=== PATIENT | male | born 1950 | race Caucasian/White ===

== ENCOUNTER 2020-09-28 14:58 | Inpatient (IN) | payer MEDICARE, SELFPAY ==
--- NOTE | ~2020-09-28 | XR_ITS ---
EXAMINATION: XR CHEST CLINICAL INFORMATION: Status post extubation COMPARISON: Chest AP upright portable 10/08/2020 TECHNIQUE: Frontal view of the chest was obtained. FINDINGS: The lungs are well-expanded with patchy opacity seen in the lingular segment. Rest of lungs are clear. Heart size and pulmonary vascularity is normal. New endotracheal tube is 7 cm above the yenifer. A left central venous catheter is in proximal SVC. New enteric tube tip is below the diaphragm the stomach. No gross bony abnormality seen. XR/XR chest 1V IMPRESSION: New endotracheal tube and enteric tube are in satisfactory position. No change in left central venous catheter. Prominent interstitial markings in both lungs likely chronic interstitial changes and/or interstitial pneumonitis. There is patchy consolidation in the lingula.
--- NOTE | ~2020-09-28 | XR_ITS ---
EXAMINATION: XR CHEST CLINICAL INFORMATION: Chest tube placement COMPARISON: Earlier on same day and October 09, 2020 TECHNIQUE: AP portable view of the chest was obtained. FINDINGS: A right-sided chest tube is seen with pigtail about the apex. There has been significant improvement in pneumothorax with reexpansion of the right lung. There is Small amount of pleural air seen laterally. Endotracheal tube is seen approximately 5 cm above the yenifer. Left internal jugular catheter is seen with tip in the distal superior vena cava. Enteric catheter is seen traversing to the stomach. Heart normal size. There is some left base disease present which may be related to pneumonitis or atelectasis. There is pneumomediastinum present. XR/XR chest 1V IMPRESSION: Right-sided chest tube in place with near complete reexpansion of the right lung. Support catheters in place. Left base density which may be related to atelectasis or pneumonitis. Large amount of subcutaneous emphysema partially obscuring evaluation of the lung parenchyma.
--- NOTE | ~2020-09-28 | US_ITS ---
EXAMINATION: US VENOUS ULTRASOUND WITH DOPPLER LOWER EXTREMITY, BILATERAL CLINICAL INFORMATION: Follow-up DVT COMPARISON: None TECHNIQUE: Ultrasound of the deep veins is performed from the hip to the calf with compression sonography and color and pulse Doppler assessment. Spectral analysis with color-flow imaging is performed. FINDINGS: RIGHT: There is normal venous compression and respiratory variation and augmented flow. The visualized common femoral vein, superficial femoral vein, profunda femoral vein, popliteal vein, and posterior tibial veins in the calf are patent. There is occlusive thrombus seen in branch of the right peroneal vein. This appears unchanged from 10/08/2020 exam. There is no significant popliteal fossa cyst. LEFT: There is normal venous compression and respiratory variation and augmented flow. The visualized common femoral vein, superficial femoral vein, profunda femoral vein, popliteal vein, and the trifurcation region shows no evidence of deep venous thrombosis. There is no significant popliteal fossa cyst. US/US venous duplex LE BI IMPRESSION: No DVT demonstrated in the left lower extremity. Thrombus seen in a branch of the right peroneal vein in the right calf similar to most recent exam 10/08/2020.
--- NOTE | ~2020-09-28 | US_ITS ---
EXAMINATION: US VENOUS ULTRASOUND WITH DOPPLER LOWER EXTREMITY, BILATERAL CLINICAL INFORMATION: Elevated d-dimer. COMPARISON: Previous exam 09/29/2020 TECHNIQUE: Ultrasound of the deep veins is performed from the hip to the calf with compression sonography and color and pulse Doppler assessment. Spectral analysis with color-flow imaging is performed. FINDINGS: RIGHT: The visualized common femoral vein, superficial femoral vein, profunda femoral vein, popliteal vein, and the posterior tibial vein shows no evidence of deep venous thrombosis. There is thrombus seen in a branch of the right peroneal vein. There is no significant popliteal fossa cyst. LEFT: There is normal venous compression and respiratory variation and augmented flow. The visualized common femoral vein, superficial femoral vein, profunda femoral vein, popliteal vein, and the trifurcation region shows no evidence of deep venous thrombosis. There is no significant popliteal fossa cyst. US/US venous duplex LE BI IMPRESSION: Right peroneal vein calf DVT. No DVT demonstrated in the left lower extremity.
--- NOTE | ~2020-09-28 | XR_ITS ---
EXAMINATION: XR CHEST CLINICAL INFORMATION: Rule out subcutaneous emphysema. COMPARISON: Previous chest x-ray, most recent from yesterday. TECHNIQUE: AP portable view of the chest was obtained. FINDINGS: Endotracheal tube appears high with tip 11 cm above the yenifer. There is a nasogastric tube projects below the left hemidiaphragm. The tip is not seen. There is a left jugular line with tip projecting over the SVC. The cardiac and mediastinal contours are stable. There is increasing bilateral chest wall and lower neck subcutaneous emphysema. There is a small right pneumothorax. This measures maximum 4 cm at the apex. There is diffuse groundglass attenuation seen in the lungs suggestive of pneumonitis. There is no left pneumothorax. There is no pleural effusion. XR/XR chest 1V IMPRESSION: Small right pneumothorax measuring 4 cm at the right lung apex. Diffuse bilateral chest wall and lower neck subcutaneous emphysema. High position of endotracheal tube 11 cm above the yenifer. Nasogastric tube tip not seen. Diffuse ground-glass attenuation in the lungs suggestive of pneumonitis. Findings were communicated to Dr. Zhang by telephone by Dr Mccormick on 10/10/2020 at 1:30 PM.
--- NOTE | ~2020-09-28 | CT_ITS ---
EXAMINATION: CT ANGIOGRAM OF THE CHEST WITH AND WITHOUT CONTRAST (CT PULMONARY ANGIOGRAM FOR PE) CLINICAL INFORMATION: Reason for Exam covid 19 hypoxia COMPARISON: None TECHNIQUE: Prior to contrast administration, noncontrast localization images were obtained. Subsequently, multidetector volumetric imaging was performed from the thoracic inlet to below the diaphragms following the administration of 80 mL Omnipaque 350 intravenous contrast. No contrast reaction reported Sagittal, coronal, and MIP oblique sagittal reformatted images were obtained on the CT workstation, uploaded to PACS, and reviewed. This CT examination was performed using dose optimization techniques as appropriate, variously including the following: *Automated exposure control *Adjustment of mA and/or kV according to patient size (this includes techniques or standardized protocols for targeted exams where dose is matched to indication/reason for exam; i.e. extremities or head) *Use of iterative reconstruction technique Total exam dose-length product 406 mGy-cm FINDINGS: QUALITY OF STUDY/CONTRAST BOLUS: Satisfactory. PULMONARY ARTERIES: No central or segmental pulmonary emboli. Please note there is significant misregistration artifact which on multiplanar review demonstrates no definite emboli. THORACIC AORTA: No aneurysm or dissection. LUNG: Extensive groundglass opacities multifocal in a peripheral distribution consistent with history of Covid 19. PLEURA: No pleural effusion or pneumothorax. MEDIASTINUM: Normal heart size. No pericardial effusion. No hilar or mediastinal lymphadenopathy. No evidence of septal bowing or right heart strain. CHEST WALL/AXILLA: No axillary or internal mammary lymphadenopathy. OSSEOUS STRUCTURES: No acute or suspicious osseous abnormality. UPPER ABDOMEN: Incidental gallstones. This is partially imaged. Hiatus hernia noted. No reflux of contrast into the hepatic veins to suggest elevated right heart pressures. CT/CT angio chest PE protocol IMPRESSION: Allowing for misregistration artifact, there is no definite pulmonary embolism. Changes in the lung parenchyma consistent: 19. VTE: negative
--- NOTE | ~2020-09-28 | XR_ITS ---
EXAMINATION: XR CHEST CLINICAL INFORMATION: Covid positive COMPARISON: CT scan 07/25/2019 TECHNIQUE: Frontal view of the chest was obtained. FINDINGS: Equivocal peripheral faint densities on this limited portable upright chest which can be seen with atypical infection. Heart and mediastinal normal. No pleural effusion. No ectopic air. XR/XR chest 1V IMPRESSION: Equivocal peripheral infiltrates which can be seen with atypical infection.
--- NOTE | ~2020-09-28 | XR_ITS ---
EXAMINATION: XR CHEST CLINICAL INFORMATION: Follow-up pneumothorax. Covid. COMPARISON: 10/13/20 TECHNIQUE: Upright frontal portable view of the chest was obtained. FINDINGS: Multiple devices overlie the patient. The endotracheal tube tip projects approximately 6 cm above the yenifer. The left IJ approach vascular catheter tip projects near the expected junction of the brachiocephalic veins. There is an enteric tube extending into the upper abdomen tip not included. There is a drainage catheter projecting over the periphery of the right upper chest. The mediastinum katya and vasculature are partially obscured. The cardiac size is likely within normal limits. The left hilum is not well evaluated. There are diffuse reticular and groundglass opacities over both lungs greatest in the mid and lower lung zones. Large amount of soft tissue gas obscures detail. I suspect a small left apical pneumothorax. No interval increase. No convincing right-sided pneumothorax. There are osteophytes in the spine. XR/XR chest 1V IMPRESSION: Limited study. No interval change in a small left apical pneumothorax. Diffuse pulmonary opacities. Right pleural drainage catheter in place. No detectable right pneumothorax. Large amount of soft tissue gas.
--- NOTE | ~2020-09-28 | XR_ITS ---
EXAMINATION: XR CHEST CLINICAL INFORMATION: Follow-up left pneumothorax. Covid. COMPARISON: Multiple prior exams most recently 10/12/2020 TECHNIQUE: Portable AP upright view of the chest was obtained. FINDINGS: A pigtail catheter reaches the right lung apex. ET tube tip terminates at the thoracic inlet approximately 8 cm above the yenifer. Left jugular line reaches the upper SVC. Enteric tube extends below diaphragm. No visible right-sided pneumothorax. On the left side, a small pneumothorax is present, minimally increased compared to prior. Persistent pneumomediastinum with subcutaneous gas tracking into the neck and supraclavicular fossa. Extensive interstitial changes persist throughout both lungs. XR/XR chest 1V IMPRESSION: 1. ETT is in a relatively high position, slightly advanced compared to prior. 2. No visible right pneumothorax. Slight increase in small left apical pneumothorax. 3. Persistent pneumomediastinum and supraclavicular subcutaneous emphysema.
--- NOTE | ~2020-09-28 | XR_ITS ---
EXAMINATION: XR CHEST CLINICAL INFORMATION: Chest tube insertion. COMPARISON: Chest 10/15/2020 TECHNIQUE: Frontal view of the chest was obtained. FINDINGS: There is significant subcutaneous emphysema Limited evaluation of the entire chest. The right CP angle is not in the [id number] either. There is a right apical chest tube with the apex is not in the [id number]. There is bilateral patchy interstitial changes more prominent in the right lung. The heart size is normal. The endotracheal tube tip is 4.8 cm above the yenifer. A left central venous catheter is at the brachiocephalic venous junction. The enteric tube is below the diaphragm in stomach. There is mild ventral spondylosis dorsal spine. No lytic process. XR/XR chest 1V IMPRESSION: Limited exam. No major change in support lines and catheters from 10/14/2020. Extensive subcutaneous emphysema limiting evaluation of the chest. Bilateral patchy and interstitial changes throughout both lungs greater in the right lung. No large pneumothorax seen on either side.
--- NOTE | ~2020-09-28 | US_ITS ---
EXAMINATION: US VENOUS ULTRASOUND WITH DOPPLER LOWER EXTREMITY, BILATERAL CLINICAL INFORMATION: Positive d-dimer. Long distance travel. Covid positive. COMPARISON: None TECHNIQUE: Ultrasound of the deep veins is performed from the hip to the calf with compression sonography and color and pulse Doppler assessment. Spectral analysis with color-flow imaging is performed. FINDINGS: RIGHT: There is normal venous compression and respiratory variation and augmented flow. The visualized common femoral vein, superficial femoral vein, profunda femoral vein, popliteal vein, and the trifurcation region shows no evidence of deep venous thrombosis. There is no significant popliteal fossa cyst. LEFT: There is normal venous compression and respiratory variation and augmented flow. The visualized common femoral vein, superficial femoral vein, profunda femoral vein, popliteal vein, and the trifurcation region shows no evidence of deep venous thrombosis. There is no significant popliteal fossa cyst. If the patient's symptoms persist, followup ultrasound in 5 days 7 days might be of value to exclude proximal propagation from a non-visualized calf vein. US/US venous duplex LE BI IMPRESSION: No DVT demonstrated in the bilateral lower extremities.
--- NOTE | ~2020-09-28 | XR_ITS ---
EXAMINATION: XR CHEST CLINICAL INFORMATION: CT, question pneumothorax COMPARISON: 10/12/2020 TECHNIQUE: Frontal view of the chest was obtained. FINDINGS: Endotracheal tube tip lies approximately 7 cm above the yenifer. Enteric tube courses below the diaphragm. Left IJ central line tip lies in the region of the upper SVC. Right apical pigtail catheter is noted. Lung volumes are symmetric. Small left apical pneumothorax appears grossly similar to prior. No right pneumothorax is seen. Diffuse mild heterogeneous opacification is redemonstrated. The cardiomediastinal silhouette is stable. No acute osseous findings are seen. Redemonstrated soft tissue gas in the chest wall and supraclavicular regions bilaterally. XR/XR chest 1V IMPRESSION: Small left apical pneumothorax appears grossly similar to prior. Redemonstrated heterogeneous haziness throughout the lungs. Persistent soft tissue gas.
--- NOTE | ~2020-09-28 | XR_ITS ---
EXAMINATION: XR CHEST CLINICAL INFORMATION: Followup pneumothorax. COMPARISON: Chest 10/11/2020 performed earlier at 11:00 AM TECHNIQUE: Frontal view of the chest was obtained. FINDINGS: There is a small left pneumothorax suspected along the 3rd lateral interspace. No visible right pneumothorax seen. The right percutaneous chest tube remains in the lung apex laterally. Position of the endotracheal tube, nasogastric tube and left central catheter is stable. There is diffuse subcutaneous emphysema limiting evaluation of both lungs. There is, however, left basilar and likely right basilar atelectasis. The heart size and great vessels are normal caliber. No gross bony abnormality. XR/XR chest 1V IMPRESSION: Small left apicolateral pneumothorax is stable. Previously seen pneumothorax along the left lower lobe likely migrated upwards towards the lung apex. No visible right pneumothorax. There is a right apical chest catheter. Diffuse subcutaneous emphysema, support lines and catheters are similar to previous study. There is left basilar airspace opacity/atelectasis, stable.
--- NOTE | ~2020-09-28 | XR_ITS ---
EXAMINATION: XR PELVIS CLINICAL INFORMATION: Pelvic pain. COMPARISON: None TECHNIQUE: AP view of the pelvis. FINDINGS: Several mildly dilated loops of small bowel are seen overlying the right lower quadrant measuring up to 3.2 cm. Residual oral contrast is seen in one of the inferior loops. Mild gas and stool are seen within the visualized colon distally to the rectum. A Ceron catheter overlies the mid pelvis. Mild to moderate degenerative changes are seen in the visualized inferior lumbar spine. XR/XR pelvis 1-2V IMPRESSION: 1. Mildly dilated small bowel loops are nonspecific and could be secondary to ileus. Early or partial small bowel obstruction cannot be completely excluded. If the patient is symptomatic, short-term repeat abdominal radiographs are recommended as clinically indicated to assess for change.
--- NOTE | ~2020-09-28 | NM_ITS ---
EXAMINATION: NM LUNG IMAGE PERFUSION CLINICAL INFORMATION: Covidd positive. Elevated d-dimer. COMPARISON: Chest x-ray 09/28/2020 and CTA chest 09/28/2020 TECHNIQUE: Following intravenous administration of 3.8 mCi of technetium 9 and an MAA, imaging of both lungs were obtained in multiple projections. FINDINGS: There is a nonsegmental defects seen along the right posterior superior segment on RPO and posterior views. Rest of the segments of right lung and left entire lung show normal perfusion. Ventilation study was not performed. NM/NM pul perfusion IMPRESSION: Nonsegmental defect along the superior segment right lower lobe on RPO view and lateral view likely related to prominent right hilum as seen on recent CTA chest. Very low probability for PE
--- NOTE | ~2020-09-28 | XR_ITS ---
EXAMINATION: XR CHEST CLINICAL INFORMATION: Follow-up pneumothorax COMPARISON: Previous chest x-rays most recent from yesterday TECHNIQUE: Frontal view of the chest was obtained. FINDINGS: The endotracheal tube is slightly high, 9.3 cm above the yenifer. There is a right jugular line with tip projecting over the distal right jugular vein. There is a left jugular line with tip projecting over the SVC. There is a nasogastric tube projects below the left hemidiaphragm over the stomach. Tip is not seen. There is a right apical chest tube. There is pneumomediastinum. This is unchanged. Cardiac and mediastinal contours are widened unremarkable. There is bilateral airspace disease, greatest at the lung bases. This appears unchanged. There is a stable tiny right apical pneumothorax and question tiny left apical pneumothorax. There is no pleural effusion. There is bilateral chest wall and lower neck subcutaneous emphysema that appears unchanged. XR/XR chest 1V IMPRESSION: High position of endotracheal tube 9.3 cm above the yenifer. Nasogastric tube projects over stomach, tip not seen. Stable pneumomediastinum. Stable bilateral airspace disease, greatest at the lung bases. Stable tiny right apical pneumothorax and question tiny left apical pneumothorax.
--- NOTE | ~2020-09-28 | XR_ITS ---
EXAMINATION: PORTABLE CHEST 1 VIEW CLINICAL INFORMATION: dialysis cath . COMPARISON: Study earlier today. TECHNIQUE: Portable frontal view of the chest was obtained. FINDINGS: Endotracheal tube tip approximately 8 cm above the yenifer. This could be advanced further if needed. Left IJ central venous catheter tip near the expected cavoatrial junction. Right IJ catheter overlying the right neck likely in the region of the right internal jugular vein. Right apical pigtail chest tube noted. Nasogastric tube below the level the diaphragm. Persistent bibasilar airspace disease seen likely reflecting component of atelectasis. Extensive subcutaneous emphysema seen bilaterally. Small right apical pneumothorax similar to earlier today. Likely small left apical pneumothorax better seen on the study from earlier today. XR/XR chest 1V IMPRESSION: Extensive subcutaneous emphysema. Small right apical pneumothorax with right-sided pigtail catheter in place. Likely small left apical pneumothorax is well. The right IJ central venous catheter tip overlies the lower right neck in the region of the right internal jugular vein. Endotracheal tube tip approximately 8 cm above the yenifer and this could be advanced if needed.
--- NOTE | ~2020-09-28 | XR_ITS ---
EXAMINATION: XR CHEST CLINICAL INFORMATION: Right pneumothorax. Follow-up. COMPARISON: Chest radiographs 10/11/2019 21 x 2, 10/09/2020 TECHNIQUE: 2 views of the chest are obtained portably with semiupright positioning at 1117 hours. FINDINGS: There is new left pneumothorax at the lateral left base, pleural line 2.4 cm from chest wall. Again, there is pneumomediastinum and extensive overlying subcutaneous emphysema. No right pneumothorax is appreciated. There is right chest tube in position. Endotracheal tube is approximately 6 cm above yenifer. Nasogastric tube is below diaphragm. There is a left internal jugular central venous line with tip at proximal SVC. The heart is normal in size. The vascularity is normal. Some subtle groundglass opacities are stable to decreased. Results are called and discussed with Dr. Zhang at approximately 1146 hours. XR/XR chest 1V IMPRESSION: 1. New small left pneumothorax. 2. Pneumomediastinum and subcutaneous emphysema stable. No visible right pneumothorax. 3. Subtle airspace opacity stable to decreased. 4. ETT 6 cm above yenifer. NG tube below diaphragm. IJ catheter at proximal SVC.
--- NOTE | ~2020-09-28 | XR_ITS ---
EXAMINATION: XR CHEST CLINICAL INFORMATION: Line placement. COMPARISON: Chest x-ray September 28, 2020 TECHNIQUE: Frontal portable view of the chest was obtained. 9:37 PM FINDINGS: Tubes and lines: 1. Left IJ catheter tip in superior vena cava about 4 cm proximal to the caval atrial junction. There is no pneumothorax. Low lung volume. Mild central pulmonary vascular congestion and increased interstitial lung markings, interstitial edema. No overt pulmonary edema. No large pleural effusion. XR/XR chest 1V IMPRESSION: 1. Left IJ catheter tip in superior vena cava about 4 cm proximal to the caval atrial junction. There is no pneumothorax. 2. Mild central hilar vascular congestion and interstitial edema.
--- NOTE | ~2020-09-28 | CT_ITS ---
EXAMINATION: CTA CHEST PE STUDY CLINICAL INFORMATION: COVID. Worsening hypoxia COMPARISON: Prior studies including recent chest x-rays and the 09/28/2020 PE study TECHNIQUE: Prior to contrast administration, noncontrast localization images were obtained. After the administration of 70 mL of Omnipaque 350 IV contrast, contiguous thin slice helical images were obtained through the thorax. Reformatted MIP images in the coronal and sagittal planes were obtained at the acquisition workstation. This CT examination was performed using dose optimization techniques as appropriate, variously including the following: *Automated exposure control *Adjustment of mA and/or kV according to patient size (this includes techniques or standardized protocols for targeted exams where dose is matched to indication/reason for exam; i.e. extremities or head) *Use of iterative reconstruction technique Of note, the examination was performed with the patient in the prone position. DLP: 609 mGy-cm. FINDINGS: The bolus timing on this study was acceptable for visualization of the pulmonary arterial tree. There are new filling defects seen in some segmental branches of the right lower lobe and right middle lobe. There is extensive worsening airspace disease seen with dense areas of consolidation and air bronchograms. The patient was imaged in a prone position with some atelectatic changes seen along the anterior (dependent chest. The previously noted areas of groundglass opacification have progressed to more significant consolidative pattern with a background of groundglass opacification remaining. Sequela of atypical or or viral infectious etiology would be favored. No abnormal pulmonary nodules or masses are appreciated. No significant hilar or mediastinal adenopathy. I do not appreciate any significant pneumothorax on this prone study. There is however extensive subcutaneous emphysema tracking into the mediastinum. Small amount of free air and fluid seen within the visualized upper abdomen noted as well. The heart is normal in size. No evidence of ventricular septal bowing or right heart strain. Great vessels are normal. Otherwise the mediastinum is unremarkable. There is no pericardial effusion or pericardial thickening. CT/CT angio chest PE protocol IMPRESSION: Significantly worsened airspace disease now with areas of consolidation on the background of groundglass opacification. Small filling defects seen within the right middle lobe and right lower lobe subsegmental pulmonary arteries are now present. The patient is prone with areas of atelectatic change as well as consolidation. Subcutaneous air seen tracking into the mediastinum. Small amount of free air and free fluid in the abdomen of uncertain etiology. VTE: Positive This critical result was discussed with Darrell Robles RN at 10/15/2020 6:12 PM and it was ascertained that the content and urgency of the report was understood at the time of direct communication.
[2020-09-28 15:07] VITALS: BP 128/62; BP 138/63; PULSE 67; PULSE 71; RESP 14; TEMP 37.8; O2SAT 95; BMI 314.9
[2020-09-28 15:46] VITALS: BP 128/59; PULSE 72; RESP 13; TEMP 37.4; O2SAT 99
--- NOTE | 2020-09-28 16:02 | ECG_ITS ---
Test Reason : WEAKNESS Blood Pressure : / mmHG Vent. Rate : 072 BPM Atrial Rate : 072 BPM P-R Int : 170 ms QRS Dur : 090 ms QT Int : 378 ms P-R-T Axes : 073 -38 067 degrees QTc Int : 413 ms Normal sinus rhythm Left axis deviation Abnormal ECG When compared with ECG of 25-JUL-2019 20:20, No significant change was found Referred By: Tessy Mas Electronically Signed By:REBA PABON
--- NOTE | 2020-09-28 16:06 | ED.GENADULT ---
HPI - General Adult General Chief complaint: Weakness Stated complaint: WEAKNESS Time Seen by Provider: 09/28/20 15:53 Source: patient Mode of arrival: ambulatory Limitations: no limitations History of Present Illness HPI narrative: patient comes to the emergency room complaining of weakness and decreased p.o. intake. Patient states that his father recently a few days ago. patient states that he has been eating less, drinking mess, he does not feel hungry. Patient also complaining of weakness. Patient denies chest pain, no shortness of breath, no vomiting or diarrhea. Related Data Allergies Allergy/AdvReac Type Severity Reaction Status Date / Time Opioids - Morphine Analogues AdvReac Severe NAUSEA & Unverified 12/08/19 19:50 [OPIOIDS - MORPHINE VOMITING ANALOGUES] Review of Systems Review of Systems: Constitutional : No Weight loss, No Fever, No Chills, No Night Sweats, Complaining of fatigue, decreased p.o. intake ENT/Mouth : No Hearing loss, No Ear Pain, No Nasal Congestion, No Sinus Pain, No Hoarseness, No sore throat, No Rhinorrhea, No Swallowing Difficulty Eyes: No Eye Pain, No Swelling, No Redness, No Foreign Body, No Discharge, No Vision Changes Cardiovascular : No Chest Pain, No SOB, No Dyspnea on Exertion, No Orthopnea, No Edema, No Palpitations Respiratory : No Cough, No Sputum, No Wheezing, No Smoke Exposure, No Dyspnea Gastrointestinal : No Nausea, No Vomiting, No Diarrhea, No Constipation, No abdominal Pain, No Hematochezia, No Melena Genitourinary : no irregular bleeding, No Dysuria, No Urinary Frequency, No Hematuria, No Urinary Incontinence, No Urgency, No Flank Pain, No Urinary Flow Changes, No Hesitancy Musculoskeletal : No joint pain, No Myalgias, No Joint Swelling Skin : No Skin Lesions, No rash Neuro : No Weakness, No Numbness, No Paresthesias, No Loss of Consciousness, No Dizziness, No Headache Psych : No Anxiety/Panic, denies being depressed, No SI/HI/AH/VH, No Social Issues, Heme/Lymph: No Bruising, No Bleeding,No Lymphadenopathy Endocrine : No Polyuria, No Polydipsia, No Temperature Intolerance PMFSH Social History Social History Patient Tobacco Use Status: Never used Tobacco Use of substances other than those prescribed or required for medical reasons: No Advance Directives: Yes Advance Directives Information Provided: Yes Advance Directives on File: No Physical Exam Vital Signs: Vital Signs: Last Vital Signs Temp 99.0 F 09/28/20 16:47 Pulse 69 09/28/20 16:47 Resp 22 H 09/28/20 16:47 BP 131/57 L 09/28/20 16:47 Pulse Ox 99 09/28/20 16:47 Body Mass Index 314.9 Appearance: Alert. Oriented X3. No acute distress. seems weak, trouble sitting up by himself Eyes: Pupils equal, round and reactive to light. ENT: Pharynx normal. Neck: Normal inspection. Neck supple. No lymph nodes noted. No crepitus CVS: Normal heart rate and rhythm. Pulses normal. Normal S1 and S2 Respiratory: No respiratory distress. Breath sounds normal. No Wheezing. No rales Abdomen: Soft and nontender. No rigidity. No distention. good BS x4 Skin: Skin warm and dry. Normal skin color. Normal skin turgor. Extremities: No lower extremity edema. No lower extremity edema. No Lacerations. No Rash Neuro: Oriented X 3. No motor deficit. No sensory deficit. Moving all extermities. No slurred speech. Course Course Course Narrative: it is likely that patient is depressed, patient may need physical therapy and case management consult, he may also [facility] to address the possible depression. Urinalysis pending, hemoglobin and chemistry is at baseline. Patient will likely need PT, case management, and BHN. sign out given to DR. Patricia Medical Decision Making Lab Data Result diagrams: 09/28/20 16:22 09/28/20 16:22 Labs: Lab Results 09/28/20 09/28/20 09/28/20 Range/Units 16:22 16:22 16:22 WBC 4.6 L (4.8-10.8) X10*3/uL RBC 5.01 (4.60-5.80) X10*6/uL Hgb 14.6 (14.0-18.0) g/dl Hct 42.3 (42-52) % MCV 84.4 (80-98) fL MCH 29.1 (27.0-33.0) pg MCHC 34.5 (31.0-36.0) g/dl RDW 12.1 (11.0-16.0) % Plt Count 87 L (160-400) X10*3/uL MPV 9.4 (9.4-12.4) fL Immature Gran % (Auto) 0.4 (0.0-0.4) % Neut % (Auto) 83.5 H (45-73) % Lymph % (Auto) 11.4 L (20-40) % [place] % (Auto) 4.7 (2-11) % Eos % (Auto) 0.0 (0-4) % Baso % (Auto) 0.0 (0-2) % Lymph # (Auto) 0.5 L (1.2-4.9) X10*3/uL [place] # (Auto) 0.2 (0.1-1.2) X10*3/uL Eos # (Auto) 0.0 (0.0-0.4) X10*3/uL Baso # (Auto) 0.0 (0.0-0.2) X10*3/uL Abs Immat Gran (auto) 0.02 (0.00-0.03) X10*3/uL Absolute Neuts (auto) 3.9 (2.0-8.3) X10*3/uL Absolute Nucleated RBC 0.000 (0.0-0.012) X10*3/uL Nucleated RBC % (auto) 0.0 (0.0-0.2) /100WBC Smear Tech's Comments VERIFIED Sodium 134 L (135-145) mmol/L Potassium 4.3 (3.3-5.1) mmol/L Chloride 102 (96-108) mmol/L Carbon Dioxide 24 (22-29) mmol/L Anion Gap 12 (12-20) BUN 18 H (9-16) mg/dL Creatinine 1.30 (0.5-1.4) mg/dL Estim Creat Clear Calc 375.1 Estimated GFR 55 Random Glucose 113 (60-115) mg/dL Calcium 8.3 L (8.4-10.2) mg/dL Total Bilirubin 1.1 H (0.0-1.0) mg/dL Direct Bilirubin 0.6 H (0.0-0.5) mg/dL AST 45 H (5-37) U/L ALT 24 (0-40) U/L Alkaline Phosphatase 47 (39-117) U/L Troponin I High Sens 18.3 (<3.5-35.0) ng/L Total Protein 6.4 L (6.5-8.0) g/dL Albumin 3.7 (3.5-5.0) g/dL Lipase (8-78) U/L 09/28/20 Range/Units 16:22 WBC (4.8-10.8) X10*3/uL RBC (4.60-5.80) X10*6/uL Hgb (14.0-18.0) g/dl Hct (42-52) % MCV (80-98) fL MCH (27.0-33.0) pg MCHC (31.0-36.0) g/dl RDW (11.0-16.0) % Plt Count (160-400) X10*3/uL MPV (9.4-12.4) fL Immature Gran % (Auto) (0.0-0.4) % Neut % (Auto) (45-73) % Lymph % (Auto) (20-40) % [place] % (Auto) (2-11) % Eos % (Auto) (0-4) % Baso % (Auto) (0-2) % Lymph # (Auto) (1.2-4.9) X10*3/uL [place] # (Auto) (0.1-1.2) X10*3/uL Eos # (Auto) (0.0-0.4) X10*3/uL Baso # (Auto) (0.0-0.2) X10*3/uL Abs Immat Gran (auto) (0.00-0.03) X10*3/uL Absolute Neuts (auto) (2.0-8.3) X10*3/uL Absolute Nucleated RBC (0.0-0.012) X10*3/uL Nucleated RBC % (auto) (0.0-0.2) /100WBC Smear Tech's Comments Sodium (135-145) mmol/L Potassium (3.3-5.1) mmol/L Chloride (96-108) mmol/L Carbon Dioxide (22-29) mmol/L Anion Gap (12-20) BUN (9-16) mg/dL Creatinine (0.5-1.4) mg/dL Estim Creat Clear Calc Estimated GFR Random Glucose (60-115) mg/dL Calcium (8.4-10.2) mg/dL Total Bilirubin (0.0-1.0) mg/dL Direct Bilirubin (0.0-0.5) mg/dL AST (5-37) U/L ALT (0-40) U/L Alkaline Phosphatase (39-117) U/L Troponin I High Sens (<3.5-35.0) ng/L Total Protein (6.5-8.0) g/dL Albumin (3.5-5.0) g/dL Lipase 43 (8-78) U/L ECG Data Attestation: I personally reviewed and interpreted this ECG as follows: ( Normal sinus rhythm, heart rate 72, assisting the patient with the vision, noting members in sinus rhythm, heart rate 72, no ST segment depression or elevation, no T-wave inversion)
[2020-09-28 16:31] LABS: MANUAL DIFF FLAG SCAN; Mean Corpuscular Hemoglobin 29.1 pg (27.0-33.0); PLT CLUMP 1; Red Cell Distribution Width 12.1 % (11.0-16.0); SCAN SMEAR FLAG 1
[2020-09-28 16:33] LABS: Hematocrit 42.3 % (42-52); Hemoglobin 14.6 g/dl (14.0-18.0); Imm Gran Abs Auto 0.02 X10*3/uL (0.00-0.03); Imm Gran Pct Auto 0.4 % (0.0-0.4); Lymphocytes Absolute Auto 0.5 X10*3/uL (1.2-4.9); Lymphocytes Percent Auto 11.4 % (20-40); Mean Corpuscular HGB Conc 34.5 g/dl (31.0-36.0); Mean Corpuscular Volume 84.4 fL (80-98); Mean Platelet Volume 9.4 fL (9.4-12.4); Monocytes Absolute Auto 0.2 X10*3/uL (0.1-1.2); Monocytes Percent Auto 4.7 % (2-11); Neutrophils Absolute Auto 3.9 X10*3/uL (2.0-8.3); Neutrophils Percent Auto 83.5 % (45-73); Red Blood Count 5.01 X10*6/uL (4.60-5.80); White Blood Count 4.6 X10*3/uL (4.8-10.8)
[2020-09-28] MEDS: 0.9 % Sodium Chloride 1,000 ML 999 ML IVCONT ×2 (16:37→21:13)
--- NOTE | 2020-09-28 16:40 | PC.NURSE ---
pt alert and oriented x3, vss, lscta. pt reports since coming to [place] 1 wk ago for his father's he has been having loss of appetite and weakness. He denies n/v/d. +BS x4, abd soft non-tender, some abdominal distension noted. Last bm last night, loose. Pt in no apparent distress, resting quietly. Fluid hung.
[2020-09-28 16:47] VITALS: BP 131/57; PULSE 69; RESP 22; TEMP 37.2; O2SAT 99
[2020-09-28 16:55] LABS: Platelet Count 87 X10*3/uL (160-400); SLIDE REVIEW VERIFIED
[2020-09-28 17:03] LABS: Alanine Aminotransferase 24 U/L (0-40); Albumin Level 3.7 g/dL (3.5-5.0); Alkaline Phosphatase 47 U/L (39-117); Anion Gap 12 (12-20); Aspartate Amino Transferase 45 U/L (5-37); Bilirubin Direct 0.6 mg/dL (0.0-0.5); Bilirubin Total 1.1 mg/dL (0.0-1.0); Blood Urea Nitrogen 18 mg/dL (9-16); Calcium 8.3 mg/dL (8.4-10.2); Carbon Dioxide 24 mmol/L (22-29); Chloride 102 mmol/L (96-108); Creatinine Clr Calc Pharmacy 375.1; Estimated Glomerular Filt Rate 55; Glucose Random 113 mg/dL (60-115); Lipase 43 U/L (8-78); Potassium 4.3 mmol/L (3.3-5.1); Sodium 134 mmol/L (135-145); Total Protein 6.4 g/dL (6.5-8.0)
[2020-09-28 17:10] LABS: Troponin-I High Sensitivity 18.3 ng/L (<3.5-35.0)
[2020-09-28 17:43] LABS: Glucose Urine UA NEG (NEG); Leukocyte Esterase Urine NEG (NEG); Nitrite Urine NEG (NEG); Specific Gravity - Urine 1.025 (1.005-1.025); Urine Blood 2+ (NEG); Urine Ketones NEG (NEG); Urine Protein 2+ MG/DL (NEG-TRACE)
[2020-09-28 17:44] LABS: Appearance Urine HAZY; Color Urine YELLOW
[2020-09-28 18:12] LABS: Amphetamine Screen Urine Not Detected (Not Detect); Barbiturates, Urine Not Detected (Not Detect); Benzodiazepines Screen Urine Not Detected (Not Detect); Cannabinoid Screen Urine Not Detected (Not Detect); Cocaine Screen Urine Not Detected (Not Detect); Opiate Screen Urine Not Detected (Not Detect); Phencyclidine Screen Urine Not Detected (Not Detect)
[2020-09-28 18:17] LABS: Amorphous Sediment Urine TRACE /LPF; Bacteria Urine TRACE /LPF; Squamous Epithelial Cell Urine TRACE /LPF; WBC Urine 0 /HPF (0-4)
[2020-09-28 20:14] LABS: COVID-19 Test Positive (Negative)
--- NOTE | 2020-09-28 20:14 | PC.NURSE ---
SUMMARY FAXED TO [facility]
--- NOTE | 2020-09-28 20:43 | PC.NURSE ---
HEARD PT COUGHING AND VOMITING FROM OUTSIDE HIS ROOM. WENT TO CHECK ON PT, WHO HAD A CUP OF ICE CHIP. PT REPORTS HE HASN'T BEEN EATING AND WHEN HE DRINKS HE FEELS BLOATED. PT SPIT UP SOME MUCUS. PT REPORTS HE NEEDED TO MOVE HIS BOWELS. PT WAS ABLE TO TAKE A FEW STEPS TO TOILET, BED MOVED IN FRONT OF DOOR. OMN WAY BACK, PT WAS EXTREMELY WEAK AND DIZZY, HAD TO SIT ON EDGE OF BED AND CATCH HIS BREATH. PT BROUGHT TO ROOM AND COVID SWAB RESULTS LOOKED UP AND WERE POSITIVE. MD TORRES NOTIFIED.
[2020-09-28] MEDS: ondansetron HCL 4 MG/2 ML VIAL IVPUSH (21:13)
[2020-09-28 21:29] VITALS: BP 128/61; PULSE 78; RESP 20; O2SAT 89
--- NOTE | 2020-09-28 21:31 | PC.NURSE ---
pt placed on 2 lpm o2 for spo2 of 89%. spo2 improved to 92%.
[2020-09-28] MEDS: iohexoL 350 MG/ML 100 ML INFUS..BTL IV (22:21)
[2020-09-28 22:25] VITALS: PULSE 75; RESP 14; TEMP 38.3; O2SAT 95
[2020-09-28] MEDS: dexAMETHasone sod phosphate 10 MG/ML VIAL IVPUSH (22:28)
--- NOTE | 2020-09-28 23:58 | P.HPHOSP_ITS ---
History of Present Illness Date of Service: 09/28/20 Chief Complaint: Generalized weakness 69-year-old male with with a past medical history of chronic back pain, history of COVID-19 positive in May of 2019; presented to the hospital today with a chief complaint of generalized weakness. Patient reported that 10 days ago he drove from [place] as his father ; after a he mentioned he slept for 2 days; has not been feeling well, feels tired exhausted; complains of dyspnea on exertion; dry cough; denies any fevers. Denies any diarrhea. Denies any chest pain or abdominal pain. Mentions that he has not been eating well in the same period; Denies any numbness tingling or focal weakness. Review of all other systems is negative except mentioned above ER course: ER team noted that patient is extremely exhausted, noted dehydrated, mildly hypoxic to 89% on room air; placed on supplemental oxygen; CT chest showed findings consistent with COVID-19 positive, no evidence of pulmonary embolism; given Decadron. Admitted to the hospital for further management. Patient also noted to have low-grade temperature. [facility] Social History Household Members: Spouse Housing: House Do you presently have visiting nurse or other home services: No Patient Tobacco Use Status: Never used Tobacco Use of substances other than those prescribed or required for medical reasons: No Currently Displaying Signs/Symptoms of Drug Intoxication Withdrawal: No Have you been hit, kicked, punched, or otherwise hurt by someone within the past year? If so, by whom?: No Do you feel safe in your current relationship?: Yes Is there a partner from a previous relationship who is making you feel unsafe now?: No Are you made to feel afraid or neglected: No Advance Directives: Yes Advance Directives Information Provided: Yes Advance Directives on File: No Advance Directives Date on File: 09/29/20 Do you have thoughts of harming others: None Do you have a plan to hurt others: No Plan Recently lost weight without trying: Yes How much weight loss: 2-13 pounds Eating poorly because of decreased appetite: Yes Nutrition screen score: 4 Nutrition Risks: Poor intake 0-25% >4 days Poor oral hygiene: No Current occupational status: unemployed Meds Allergies Allergy/AdvReac Type Severity Reaction Status Date / Time Opioids - Morphine Analogues AdvReac Severe NAUSEA & Verified 10/07/20 19:28 [OPIOIDS - MORPHINE VOMITING ANALOGUES] Active Medications: Current Medications Generic Name Dose Route Start Last Admin Trade Name Freq PRN Reason Stop Dose Admin Acetaminophen 650 mg 09/28/20 23:52 Acetaminophen 325 Mg Tablet PO Q6H PRN Pain, Mild (Pain Scale 1-3) Albuterol Sulfate 4 puff 09/28/20 23:56 Albuterol Sulfate 90 Mcg 8 Gm Inhaler INHALE Q2H PRN Shortness of Breath/Wheezing Azithromycin 500 mg 09/28/20 23:45 Azithromycin 500 Mg Tablet PO Q24H VINH Benzonatate 100 mg 09/28/20 23:55 Benzonatate 100 Mg Capsule PO TID PRN Cough Enoxaparin Sodium 40 mg 09/28/20 23:45 Enoxaparin Sodium 40 Mg/0.4 Ml Syringe SUBCUT Q24H VINH Melatonin 6 mg 09/28/20 23:52 Melatonin 3 Mg Tablet PO BEDTIME PRN Insomnia Morphine Sulfate 1 mg 09/28/20 23:52 Morphine Sulfate 4 Mg/Ml Cartridge IVPUSH Q4H PRN Pain, SOB Senna 17.2 mg 09/28/20 23:52 Sennosides 8.6 Mg Tablet PO BEDTIME PRN Constipation Sodium Chloride 3 ml 09/29/20 00:00 0.9 % Sodium Chloride Flush 3 Ml Syringe IVFLUSH QSHIFT [facility] Home Medications Medication Instructions Recorded Confirmed Last Taken Type No Known Home Meds 09/28/20 09/28/20 Unknown History Physical Exam Vital Signs and Narrative: Vital Signs: Last Vital Signs Temp 100.9 F H 09/28/20 22:25 Pulse 75 09/28/20 22:25 Resp 14 09/28/20 22:25 BP 128/61 09/28/20 21:29 Pulse Ox 95 09/28/20 22:25 Body Mass Index 314.9 Gen: Appears be in no acute distress; on supplemental oxygen. Speaks in full sentences. No evidence of respiratory distress. HEENT: NCAT, Moist mucosa. Pulmonary: Course CVS: Normal S1-S2 Abdomen: BS+, Soft, Nontender Extremities: Warm well perfused Neuro: Alert and awake. Results Labs CBC and Chem 7: 10/10/20 05:15 07/21/21 18:10 Labs: Laboratory Results - last 24 hr 09/28/20 09/28/20 09/28/20 16:22 16:22 16:22 MCV 84.4 MCH 29.1 MCHC 34.5 RDW 12.1 Plt Count 87 L MPV 9.4 Immature Gran % (Auto) 0.4 Neut % (Auto) 83.5 H Lymph % (Auto) 11.4 L [place] % (Auto) 4.7 Eos % (Auto) 0.0 Baso % (Auto) 0.0 Lymph # (Auto) 0.5 L [place] # (Auto) 0.2 Eos # (Auto) 0.0 Baso # (Auto) 0.0 Abs Immat Gran (auto) 0.02 Absolute Neuts (auto) 3.9 Absolute Nucleated RBC 0.000 Nucleated RBC % (auto) 0.0 Smear Tech's Comments VERIFIED Anion Gap 12 Estim Creat Clear Calc 375.1 Estimated GFR 55 Random Glucose 113 Calcium 8.3 L Total Bilirubin 1.1 H Direct Bilirubin 0.6 H AST 45 H ALT 24 Alkaline Phosphatase 47 Troponin I High Sens 18.3 Total Protein 6.4 L Albumin 3.7 Lipase Urine Color Urine Appearance Urine pH Ur Specific [place] Urine Protein Urine Glucose (UA) Urine Ketones Urine Blood Urine Nitrite Ur Leukocyte Esterase Urine RBC Urine WBC Ur Squamous Epith Cells Amorphous Sediment Urine Bacteria Urine Opiates Screen Ur Barbiturates Screen Ur Phencyclidine Scrn Ur Amphetamines Screen U Benzodiazepines Scrn Urine Cocaine Screen U Marijuana (THC) Screen COVID-19 ([facility]) COVID-19 Clin Com 09/28/20 09/28/20 09/28/20 16:22 17:31 17:31 MCV MCH MCHC RDW Plt Count MPV Immature Gran % (Auto) Neut % (Auto) Lymph % (Auto) [place] % (Auto) Eos % (Auto) Baso % (Auto) Lymph # (Auto) [place] # (Auto) Eos # (Auto) Baso # (Auto) Abs Immat Gran (auto) Absolute Neuts (auto) Absolute Nucleated RBC Nucleated RBC % (auto) Smear Tech's Comments Anion Gap Estim Creat Clear Calc Estimated GFR Random Glucose Calcium Total Bilirubin Direct Bilirubin AST ALT Alkaline Phosphatase Troponin I High Sens Total Protein Albumin Lipase 43 Urine Color YELLOW Urine Appearance HAZY Urine pH 6.0 Ur Specific [place] 1.025 Urine Protein 2+ H Urine Glucose (UA) NEG Urine Ketones NEG Urine Blood 2+ H Urine Nitrite NEG Ur Leukocyte Esterase NEG Urine RBC 5-9 H Urine WBC 0 Ur Squamous Epith Cells TRACE Amorphous Sediment TRACE Urine Bacteria TRACE Urine Opiates Screen Not Detected Ur Barbiturates Screen Not Detected Ur Phencyclidine Scrn Not Detected Ur Amphetamines Screen Not Detected U Benzodiazepines Scrn Not Detected Urine Cocaine Screen Not Detected U Marijuana (THC) Screen Not Detected COVID-19 ([facility]) COVID-19 Clin Com 09/28/20 19:55 MCV MCH MCHC RDW Plt Count MPV Immature Gran % (Auto) Neut % (Auto) Lymph % (Auto) [place] % (Auto) Eos % (Auto) Baso % (Auto) Lymph # (Auto) [place] # (Auto) Eos # (Auto) Baso # (Auto) Abs Immat Gran (auto) Absolute Neuts (auto) Absolute Nucleated RBC Nucleated RBC % (auto) Smear Tech's Comments Anion Gap Estim Creat Clear Calc Estimated GFR Random Glucose Calcium Total Bilirubin Direct Bilirubin AST ALT Alkaline Phosphatase Troponin I High Sens Total Protein Albumin Lipase Urine Color Urine Appearance Urine pH Ur Specific [place] Urine Protein Urine Glucose (UA) Urine Ketones Urine Blood Urine Nitrite Ur Leukocyte Esterase Urine RBC Urine WBC Ur Squamous Epith Cells Amorphous Sediment Urine Bacteria Urine Opiates Screen Ur Barbiturates Screen Ur Phencyclidine Scrn Ur Amphetamines Screen U Benzodiazepines Scrn Urine Cocaine Screen U Marijuana (THC) Screen COVID-19 ([facility]) Positive A COVID-19 Clin Com See Note Imaging Radiologist's Impressions: Impressions Chest X-Ray 09/28/20 20:36 IMPRESSION: Equivocal peripheral infiltrates which can be seen with atypical infection. Chest CTA 09/28/20 21:33 IMPRESSION: Allowing for misregistration artifact, there is no definite pulmonary embolism. Changes in the lung parenchyma consistent: 19. VTE: negative Assessment and Plan (1) SARS-CoV-2 positive: Status: Acute 69-year-old male with a past medical history of chronic back pain, history of COVID-19 positive in May of 2019; presented to the hospital with chief complaint of generalized weakness. Noted to have COVID-19 positive and hypoxia. Hypoxia: In the setting of COVID-19 positive. Patient currently saturating 95% on 3 L of supplemental oxygen. Albuterol MDI p.r.n. COVID-19 positive: Continue Decadron 6 mg p.o. daily. Azithromycin daily. Id consult for further recommendations airborne contact isolation Generalized weakness/fatigue: Likely in setting of poor oral intake. Patient also in grief as his father 10 days ago. Supportive care. DVT prophylaxis: Lovenox Code status: Full code Quality Stroke Does the patient have a stroke diagnosis?: No VTE Prior VTE?: No VTE Risk Level:: Medical - moderate - high VTE Device Contraindication: Treatment Not Indicated VTE Drug Contraindication: N/A - Med Ordered
--- NOTE | 2020-09-28 23:58 | PC.NURSE ---
PT ABLE TO SIT UPRIGHT, LOOK MORE ALERT FOR THE PAST SEVERAL HOURS. GIVEN JOANNA CAREY, CRACKERS AND PUDDING, NO NAUSEA OR VOMITING. PT GIVEN PJ BOTTOMS TO CHANGE INTO, WOULD RATHER KEEP HIS JEANS ON.
[2020-09-29] VITALS (10 sets, daily range): BP systolic 113–123; BP diastolic 56–61; PULSE 60–80; RESP 14–20; TEMP 36–37.3; O2SAT 89–94; BMI 31.2
[2020-09-29] MEDS: Enoxaparin Sodium 40 MG/0.4 ML SYRINGE SUBCUT ×2 (01:27→20:32)
[2020-09-29] MEDS: Azithromycin 500 MG TABLET PO ×2 (01:27→20:32)
--- NOTE | 2020-09-29 01:50 | PC.NURSE ---
PT CHANGED, JEANS OFF IN PREPARATION FOR LOWER EXTREMITY ULTRASOUND. PT ABLE TO HYDRATE BY MOUTH, BUT IS REQUESTING ADDITIONAL IV FLUIDS.
--- NOTE | 2020-09-29 02:46 | PC.NURSE ---
REPORT GIVEN TO RN ON FLOOR, PT NEEDS BEDSIDE ULTRASOUND PRIOR TO TRANSPORT TO FLOOR.
[2020-09-29] MEDS: 0.9 % Sodium Chloride Flush 3 ML SYRINGE IVFLUSH ×4 (04:10→20:32)
[2020-09-29 07:03] LABS: Imm Gran Abs Auto 0.02 X10*3/uL (0.00-0.03); Imm Gran Pct Auto 0.5 % (0.0-0.4); MANUAL DIFF FLAG SCAN; Mean Platelet Volume 10.4 fL (9.4-12.4); Neutrophils Absolute Auto 3.6 X10*3/uL (2.0-8.3); PLT CLUMP 1; SCAN SMEAR FLAG 1
[2020-09-29 07:21] LABS: Anion Gap 13 (12-20); Blood Urea Nitrogen 21 mg/dL (9-16); Calcium 7.9 mg/dL (8.4-10.2); Carbon Dioxide 22 mmol/L (22-29); Chloride 103 mmol/L (96-108); Creatinine Clr Calc Pharmacy 70.3; Estimated Glomerular Filt Rate 54; Glucose Random 207 mg/dL (60-115); Potassium 4.7 mmol/L (3.3-5.1); Sodium 133 mmol/L (135-145)
[2020-09-29 07:36] LABS: Hematocrit 40.3 % (42-52); Hemoglobin 13.7 g/dl (14.0-18.0); Lymphocytes Absolute Auto 0.6 X10*3/uL (1.2-4.9); Lymphocytes Percent Auto 14.3 % (20-40); Mean Corpuscular Hemoglobin 29.3 pg (27.0-33.0); Mean Corpuscular Volume 86.1 fL (80-98); Monocytes Absolute Auto 0.2 X10*3/uL (0.1-1.2); Monocytes Percent Auto 4.1 % (2-11); Neutrophils Percent Auto 81.1 % (45-73); Red Blood Count 4.68 X10*6/uL (4.60-5.80); Red Cell Distribution Width 12.1 % (11.0-16.0); White Blood Count 4.4 X10*3/uL (4.8-10.8)
[2020-09-29 07:39] LABS: Platelet Count 88 X10*3/uL (160-400)
[2020-09-29] MEDS: dexAMETHasone 6 MG TABLET PO (08:43)
[2020-09-29] MEDS: Famotidine/PF 20 MG/2 ML VIAL IVPUSH ×2 (08:44→20:32)
--- NOTE | 2020-09-29 11:37 | MHC.CM.PN ---
IMM 09/29: COVID +: Interview conducted via phone: [place]: fully independent, drives, no prior services or equipment. At time of D/C, patient will call his brother for a ride back to his father's house where he is staying while here in [place]. CM to follow.
--- NOTE | 2020-09-29 15:26 | PM.IMPN ---
Subjective Subjective Date of Service: 09/29/20 Interval History: Follow up covid 19 no sob no hypoxia Physical Exam Vital Signs: Vital Signs: Last Vital Signs Temp 96.8 F 09/29/20 15:06 Pulse 62 09/29/20 15:06 Resp 20 09/29/20 15:06 BP 114/56 L 09/29/20 15:06 Pulse Ox 94 09/29/20 15:06 Body Mass Index 31.2 Appearing in no acute distress lung sounds normal expansion heart regular rate rhythm, clear S1, S2 positive bowel sounds, abdomen is soft, nontender neuro patient is alert x3, no focal deficits Objective Data Current Medications Generic Name Dose Route Start Last Admin Trade Name Freq PRN Reason Stop Dose Admin Acetaminophen 650 mg 09/28/20 23:52 Acetaminophen 325 Mg Tablet PO Q6H PRN Pain, Mild (Pain Scale 1-3) Albuterol Sulfate 4 puff 09/28/20 23:56 Albuterol Sulfate 90 Mcg 8 Gm Inhaler INHALE Q2H PRN Shortness of Breath/Wheezing Azithromycin 500 mg 09/28/20 23:45 09/29/20 01:27 Azithromycin 500 Mg Tablet PO 500 mg BEDTIME VINH Administration Benzonatate 100 mg 09/28/20 23:55 Benzonatate 100 Mg Capsule PO TID PRN Cough Dexamethasone 6 mg 09/29/20 09:00 09/29/20 08:43 Dexamethasone 6 Mg Tablet PO 6 mg DAILY VINH Administration Enoxaparin Sodium 40 mg 09/28/20 23:45 09/29/20 01:27 Enoxaparin Sodium 40 Mg/0.4 Ml Syringe SUBCUT 40 mg BEDTIME VINH Administration Famotidine 20 mg 09/29/20 09:00 09/29/20 08:44 Famotidine/Pf 20 Mg/2 Ml Vial IVPUSH 20 mg BID VINH Administration Melatonin 6 mg 09/28/20 23:52 Melatonin 3 Mg Tablet PO BEDTIME PRN Insomnia Morphine Sulfate 1 mg 09/28/20 23:52 Morphine Sulfate 4 Mg/Ml Cartridge IVPUSH Q4H PRN Pain, SOB Senna 17.2 mg 09/28/20 23:52 Sennosides 8.6 Mg Tablet PO BEDTIME PRN Constipation Sodium Chloride 3 ml 09/29/20 00:00 09/29/20 08:48 0.9 % Sodium Chloride Flush 3 Ml Syringe IVFLUSH 3 ml QSHIFT VINH Administration Labs CBC & Chem 7: 09/29/20 05:56 09/29/20 05:56 Labs: Laboratory Results - last 24 hr 09/28/20 09/28/20 09/28/20 16:22 16:22 16:22 MCV 84.4 MCH 29.1 MCHC 34.5 RDW 12.1 Plt Count 87 L MPV 9.4 Immature Gran % (Auto) 0.4 Neut % (Auto) 83.5 H Lymph % (Auto) 11.4 L [place] % (Auto) 4.7 Eos % (Auto) 0.0 Baso % (Auto) 0.0 Lymph # (Auto) 0.5 L [place] # (Auto) 0.2 Eos # (Auto) 0.0 Baso # (Auto) 0.0 Abs Immat Gran (auto) 0.02 Absolute Neuts (auto) 3.9 Absolute Nucleated RBC 0.000 Nucleated RBC % (auto) 0.0 Smear Tech's Comments VERIFIED Anion Gap 12 Estim Creat Clear Calc 375.1 Estimated GFR 55 Random Glucose 113 Calcium 8.3 L Total Bilirubin 1.1 H Direct Bilirubin 0.6 H AST 45 H ALT 24 Alkaline Phosphatase 47 Troponin I High Sens 18.3 Total Protein 6.4 L Albumin 3.7 Lipase Urine Color Urine Appearance Urine pH Ur Specific Rembert Urine Protein Urine Glucose (UA) Urine Ketones Urine Blood Urine Nitrite Ur Leukocyte Esterase Urine RBC Urine WBC Ur Squamous Epith Cells Amorphous Sediment Urine Bacteria Urine Opiates Screen Ur Barbiturates Screen Ur Phencyclidine Scrn Ur Amphetamines Screen U Benzodiazepines Scrn Urine Cocaine Screen U Marijuana (THC) Screen COVID-19 ([facility]) COVID-19 Clin Com 09/28/20 09/28/20 09/28/20 16:22 17:31 17:31 MCV MCH MCHC RDW Plt Count MPV Immature Gran % (Auto) Neut % (Auto) Lymph % (Auto) [place] % (Auto) Eos % (Auto) Baso % (Auto) Lymph # (Auto) [place] # (Auto) Eos # (Auto) Baso # (Auto) Abs Immat Gran (auto) Absolute Neuts (auto) Absolute Nucleated RBC Nucleated RBC % (auto) Smear Tech's Comments Anion Gap Estim Creat Clear Calc Estimated GFR Random Glucose Calcium Total Bilirubin Direct Bilirubin AST ALT Alkaline Phosphatase Troponin I High Sens Total Protein Albumin Lipase 43 Urine Color YELLOW Urine Appearance HAZY Urine pH 6.0 Ur Specific Rembert 1.025 Urine Protein 2+ H Urine Glucose (UA) NEG Urine Ketones NEG Urine Blood 2+ H Urine Nitrite NEG Ur Leukocyte Esterase NEG Urine RBC 5-9 H Urine WBC 0 Ur Squamous Epith Cells TRACE Amorphous Sediment TRACE Urine Bacteria TRACE Urine Opiates Screen Not Detected Ur Barbiturates Screen Not Detected Ur Phencyclidine Scrn Not Detected Ur Amphetamines Screen Not Detected U Benzodiazepines Scrn Not Detected Urine Cocaine Screen Not Detected U Marijuana (THC) Screen Not Detected COVID-19 ([facility]) COVID-19 Clin Com 09/28/20 09/29/20 09/29/20 19:55 05:56 05:56 MCV 86.1 MCH 29.3 MCHC 34.0 RDW 12.1 Plt Count 88 L MPV 10.4 Immature Gran % (Auto) 0.5 H Neut % (Auto) 81.1 H Lymph % (Auto) 14.3 L [place] % (Auto) 4.1 Eos % (Auto) 0.0 Baso % (Auto) 0.0 Lymph # (Auto) 0.6 L [place] # (Auto) 0.2 Eos # (Auto) 0.0 Baso # (Auto) 0.0 Abs Immat Gran (auto) 0.02 Absolute Neuts (auto) 3.6 Absolute Nucleated RBC 0.000 Nucleated RBC % (auto) 0.0 Smear Tech's Comments Not Reportable Anion Gap 13 Estim Creat Clear Calc 70.3 Estimated GFR 54 Random Glucose 207 H D Calcium 7.9 L Total Bilirubin Direct Bilirubin AST ALT Alkaline Phosphatase Troponin I High Sens Total Protein Albumin Lipase Urine Color Urine Appearance Urine pH Ur Specific Rembert Urine Protein Urine Glucose (UA) Urine Ketones Urine Blood Urine Nitrite Ur Leukocyte Esterase Urine RBC Urine WBC Ur Squamous Epith Cells Amorphous Sediment Urine Bacteria Urine Opiates Screen Ur Barbiturates Screen Ur Phencyclidine Scrn Ur Amphetamines Screen U Benzodiazepines Scrn Urine Cocaine Screen U Marijuana (THC) Screen COVID-19 ([facility]) Positive A COVID-19 Clin Com See Note Progress Note: A&P (1) Pneumonia due to COVID-19 virus: Status: Acute Assessment and Plan: 69-year-old male with a past medical history of chronic back pain, history of COVID-19 positive in May of 2019; presented to the hospital with chief complaint of generalized weakness. Noted to have COVID-19 positive and hypoxia. Acute hypoxic respiratory failure secondary to COVID-19 initial oxygen saturation 89% none 94% on 2-3 L. history of COVID and 2020 id consult Decadron, azithromycin isolation Thrombocytopenia chronic no bleeding follow cbc Elevated ddimer cta neg secondary to covid DVT prophylaxis: Lovenox Code status: Full code Attending Dr. Szymanski Quality Stroke Does the patient have a stroke diagnosis?: No VTE Prior VTE?: No VTE Risk Level:: Medical - moderate - high VTE Device Contraindication: Treatment Not Indicated VTE Drug Contraindication: N/A - Med Ordered
[2020-09-29 17:10] LABS: Adenovirus PCR Not Detected (Not Detect.); Bordetella parapertussis PCR Not Detected (Not Detect.); Bordetella pertussis PCR Not Detected (Not Detect.); Chlamydia pneumoniae PCR Not Detected (Not Detect.); Coronavirus 229E PCR Not Detected (Not Detect.); Coronavirus HKU1 PCR Not Detected (Not Detect.); Coronavirus NL63 PCR Not Detected (Not Detect.); Coronavirus OC43 PCR Not Detected (Not Detect.); Human metapneumovirus PCR Not Detected (Not Detect.); Influenza A PCR Not Detected (Not Detect.); Influenza B PCR Not Detected (Not Detect.); Mycoplasma pneumoniae PCR Not Detected (Not Detect.); Parainfluenza 1 PCR Not Detected (Not Detect.); Parainfluenza 2 PCR Not Detected (Not Detect.); Parainfluenza 3 PCR Not Detected (Not Detect.); Parainfluenza 4 PCR Not Detected (Not Detect.); RSV PCR Not Detected (Not Detect.); Rhino/Enterovirus PCR Not Detected (Not Detect.)
--- NOTE | 2020-09-29 22:53 | W.PM.IDCN ---
History of Present Illness Data of Consult Service Date: 09/29/20 Requesting physician: Jeny Wang Primary Care Provider: Unknown Physician HPI Reason for consult: hypoxia He presents for shortness of breath and fatigue He can walk a mile at a time on flat surfaces He had COVID 05/2019 and has recently traveled from [place] to [place] for fathers His COVID rapid test is positive He is hypoxic and has ground glass opacities Review of Systems Review of Systems: Yes all other systems are reviewed and are negative PMFSH Family History Family history: reviewed and not pertinent Social History Social History Household Members: Spouse Housing: House Do you presently have visiting nurse or other home services: No Patient Tobacco Use Status: Never used Tobacco Use of substances other than those prescribed or required for medical reasons: No Currently Displaying Signs/Symptoms of Drug Intoxication Withdrawal: No Have you been hit, kicked, punched, or otherwise hurt by someone within the past year? If so, by whom?: No Do you feel safe in your current relationship?: Yes Is there a partner from a previous relationship who is making you feel unsafe now?: No Are you made to feel afraid or neglected: No Advance Directives: Yes Advance Directives Information Provided: Yes Advance Directives on File: No Advance Directives Date on File: 09/29/20 Do you have thoughts of harming others: None Do you have a plan to hurt others: No Plan Recently lost weight without trying: Yes How much weight loss: 2-13 pounds Eating poorly because of decreased appetite: Yes Nutrition screen score: 4 Nutrition Risks: Poor intake 0-25% >4 days Poor oral hygiene: No Current occupational status: unemployed Meds Allergies Allergy/AdvReac Type Severity Reaction Status Date / Time Opioids - Morphine Analogues AdvReac Severe NAUSEA & Unverified 12/08/19 19:50 [OPIOIDS - MORPHINE VOMITING ANALOGUES] Active Medications: Current Medications Generic Name Dose Route Start Last Admin Trade Name Freq PRN Reason Stop Dose Admin Acetaminophen 650 mg 09/28/20 23:52 Acetaminophen 325 Mg Tablet PO Q6H PRN Pain, Mild (Pain Scale 1-3) Albuterol Sulfate 4 puff 09/28/20 23:56 Albuterol Sulfate 90 Mcg 8 Gm Inhaler INHALE Q2H PRN Shortness of Breath/Wheezing Azithromycin 500 mg 09/28/20 23:45 09/29/20 20:32 Azithromycin 500 Mg Tablet PO 500 mg BEDTIME VINH Administration Benzonatate 100 mg 09/28/20 23:55 Benzonatate 100 Mg Capsule PO TID PRN Cough Dexamethasone 6 mg 09/29/20 09:00 09/29/20 08:43 Dexamethasone 6 Mg Tablet PO 6 mg DAILY VINH Administration Enoxaparin Sodium 40 mg 09/28/20 23:45 09/29/20 20:32 Enoxaparin Sodium 40 Mg/0.4 Ml Syringe SUBCUT 40 mg BEDTIME VINH Administration Famotidine 20 mg 09/29/20 09:00 09/29/20 20:32 Famotidine/Pf 20 Mg/2 Ml Vial IVPUSH 20 mg BID VINH Administration Melatonin 6 mg 09/28/20 23:52 Melatonin 3 Mg Tablet PO BEDTIME PRN Insomnia Morphine Sulfate 1 mg 09/28/20 23:52 Morphine Sulfate 4 Mg/Ml Cartridge IVPUSH Q4H PRN Pain, SOB Senna 17.2 mg 09/28/20 23:52 Sennosides 8.6 Mg Tablet PO BEDTIME PRN Constipation Sodium Chloride 3 ml 09/29/20 00:00 09/29/20 20:32 0.9 % Sodium Chloride Flush 3 Ml Syringe IVFLUSH 3 ml QSHIFT VINH Administration Home Medications Medication Instructions Recorded Confirmed Last Taken Type No Known Home Meds 09/28/20 09/28/20 Unknown History Physical Exam Vital Signs: Vital Signs: Last Vital Signs Temp 96.9 F 09/29/20 19:20 Pulse 80 09/29/20 19:20 Resp 20 09/29/20 19:20 BP 117/59 L 09/29/20 19:20 Pulse Ox 94 09/29/20 19:20 Body Mass Index 31.2 Const: General: cooperative HENMT: Head: Yes normal to inspection Mouth: Normal oral and palatal mucosa present Eyes: General: appearance normal, both eyes and all related structures Resp: Effort & Inspection: normal respiratory effort and able to speak in complete sentences Cardio: Rate: regular rate Rhythm: regular rhythm GI: Palpation (GI): Soft to palpation and nontender Skin: General skin exam: no rashes or lesions noted Results Labs CBC & Chem 7: 09/29/20 05:56 07/10/21 05:56 Labs: Short CBC 09/29/20 Range/Units 05:56 WBC 4.4 L (4.8-10.8) X10*3/uL Hgb 13.7 L (14.0-18.0) g/dl Hct 40.3 L (42-52) % Plt Count 88 L (160-400) X10*3/uL BMP 09/29/20 05:56 Sodium 133 L Potassium 4.7 Chloride 103 Carbon Dioxide 22 BUN 21 H Creatinine 1.31 Calcium 7.9 L Assessment and Plan (1) Hypoxia: Status: Acute He is on oxygen and never has been This is possibly due to atypical pneumonia, possibly viral but less likely COVID due to prior illness Suggest Check respiratory virus panel for COVID and cycle threshold if positive For now Doxycycline total 10 d outpatient
[2020-09-30] VITALS (12 sets, daily range): BP systolic 109–135; BP diastolic 53–69; PULSE 58–72; RESP 20; TEMP 36–36.9; O2SAT 84–97
[2020-09-30] MEDS: Famotidine/PF 20 MG/2 ML VIAL IVPUSH ×2 (09:32→20:44)
[2020-09-30] MEDS: dexAMETHasone 6 MG TABLET PO (09:32)
[2020-09-30] MEDS: 0.9 % Sodium Chloride Flush 3 ML SYRINGE IVFLUSH ×3 (09:40→20:44)
[2020-09-30] MEDS: Benzonatate 100 MG CAPSULE PO (09:40)
--- NOTE | 2020-09-30 11:43 | PM.IMPN ---
Subjective Subjective Date of Service: 09/30/20 Interval History: Follow up covid 19 asymptomatic hypoxia sitting up in chair Physical Exam Vital Signs: Vital Signs: Last Vital Signs Temp 98.3 F 09/30/20 11:40 Pulse 72 09/30/20 11:40 Resp 20 09/30/20 11:40 BP 109/53 L 09/30/20 11:40 Pulse Ox 88 L 09/30/20 11:40 Body Mass Index 31.2 Appearing in no acute distress lung normal expansion heart regular rate rhythm positive bowel sounds, abdomen is soft, nontender neuro patient is alert x3, no focal deficits Objective Data Current Medications Generic Name Dose Route Start Last Admin Trade Name Freq PRN Reason Stop Dose Admin Acetaminophen 650 mg 09/28/20 23:52 Acetaminophen 325 Mg Tablet PO Q6H PRN Pain, Mild (Pain Scale 1-3) Albuterol Sulfate 4 puff 09/28/20 23:56 Albuterol Sulfate 90 Mcg 8 Gm Inhaler INHALE Q2H PRN Shortness of Breath/Wheezing Azithromycin 500 mg 09/28/20 23:45 09/29/20 20:32 Azithromycin 500 Mg Tablet PO 500 mg BEDTIME VINH Administration Benzonatate 100 mg 09/28/20 23:55 09/30/20 09:40 Benzonatate 100 Mg Capsule PO 100 mg TID PRN Administration Cough Dexamethasone 6 mg 09/29/20 09:00 09/30/20 09:32 Dexamethasone 6 Mg Tablet PO 6 mg DAILY VINH Administration Enoxaparin Sodium 40 mg 09/28/20 23:45 09/29/20 20:32 Enoxaparin Sodium 40 Mg/0.4 Ml Syringe SUBCUT 40 mg BEDTIME VINH Administration Famotidine 20 mg 09/29/20 09:00 09/30/20 09:32 Famotidine/Pf 20 Mg/2 Ml Vial IVPUSH 20 mg BID VINH Administration Melatonin 6 mg 09/28/20 23:52 Melatonin 3 Mg Tablet PO BEDTIME PRN Insomnia Morphine Sulfate 1 mg 09/28/20 23:52 Morphine Sulfate 4 Mg/Ml Cartridge IVPUSH Q4H PRN Pain, SOB Senna 17.2 mg 09/28/20 23:52 Sennosides 8.6 Mg Tablet PO BEDTIME PRN Constipation Sodium Chloride 3 ml 09/29/20 00:00 09/30/20 09:40 0.9 % Sodium Chloride Flush 3 Ml Syringe IVFLUSH 3 ml QSHIFT VINH Administration Labs CBC & Chem 7: 09/29/20 05:56 09/29/20 05:56 Progress Note: A&P (1) Hypoxia: Status: Acute (2) SARS-CoV-2 positive: Status: Acute Assessment and Plan: 69-year-old male with a past medical history of chronic back pain, history of COVID-19 positive in May of 2019; presented to the hospital with chief complaint of generalized weakness. Noted to have COVID-19 positive and hypoxia. Acute hypoxic respiratory failure secondary to COVID-19 worsening hypoxia, up to 6 Lnc initial oxygen saturation 89% none 94% on 2-3 L. history of COVID and 2020 id consult Decadron, azithromycin isolation Thrombocytopenia chronic no bleeding follow cbc Elevated ddimer cta neg secondary to covid DVT prophylaxis: Lovenox Code status: Full code Attending Dr. Szymanski Quality Stroke Does the patient have a stroke diagnosis?: No VTE Prior VTE?: No VTE Risk Level:: Medical - moderate - high VTE Device Contraindication: Treatment Not Indicated VTE Drug Contraindication: N/A - Med Ordered
[2020-09-30 12:46] LABS: SARS-CoV-2 PCR Detected (Not Detect.)
--- NOTE | 2020-09-30 12:54 | PM.EVENT ---
Event Note Date of Service: 09/30/20 Event Note: put in flu/RSV/COVID stat need cycle threshold not available on [employer] RSV panel, may give steroids
[2020-09-30 13:28] LABS: ABG Base Excess -4.7 mmol/L; ABG HCO3 18 mmol/L (22-26); ABG pCO2 27 mmHg (32-45); ABG pCO2 TC 26 mmHg (32-45); ABG pH 7.42 (7.35-7.45); ABG pH TC 7.43 (7.35-7.45); ABG pO2 86 mmHg (83-108); ABG pO2 TC 85 (83-108)
[2020-09-30 13:39] LABS: Influenza A PCR NEGATIVE (Negative); Influenza B PCR NEGATIVE (Negative); Resp Syncy Virus RNA Qual PCR NEGATIVE (Negative); SARS COV2 PCR INHOUSE POSITIVE (Negative)
[2020-09-30 14:47] LABS: ABG Refer to POC result
[2020-09-30] MEDS: Remdesivir 200 MG in 0.9 % Sodium Chloride 210 ML 105 MG IV (16:07)
--- NOTE | 2020-09-30 17:17 | PC.NURSE ---
Pt desat from 90s to low mid 80s with any exertion. From moving OOB to chair to simply eating or talking on phone pt can desat very quickly and easily. Reminding to move slowly while breathing through his nose in order to keep o2 at acceptable range. Pt states no SOB or discomfort at this time. Remains on continuous o2 currently 92% on 7L castillo cannula.
[2020-09-30] MEDS: Enoxaparin Sodium 40 MG/0.4 ML SYRINGE SUBCUT (20:44)
[2020-09-30] MEDS: Azithromycin 500 MG TABLET PO (20:44)
[2020-10-01] VITALS (14 sets, daily range): BP systolic 104–142; BP diastolic 51–63; PULSE 61–67; RESP 20–24; TEMP 36–37.1; O2SAT 75–99
--- NOTE | 2020-10-01 00:51 | PC.NURSE ---
Addendum entered by Natasha Ward RN 10/01/20 06:21: Patient up to void around 0545, O2 sats dropped to high 70s to low 80's. Pt recovered slowly, sats back up to 88-90% after approx 25 minutes. Venti mask still on at 14L, 55%. Respiratory updated. Addendum entered by Natasha Ward RN 10/01/20 01:38: Patient continued to desat just lying in bed. Titrated the Stevenson cannual up a little at a time but sats continued to drop to the low to mid 80's. Changed to a venti mask at 0135. The venti mask is at 14L, 55%. Pt sats are between 87-90%. Hospitalist and respiratory both aware of the change. Original Note: Patient on 7L Stevenson cannula. Sats sustaining between 83-87%. O2 increased to 9L, sats up to 90.
[2020-10-01 06:51] LABS: Hemoglobin 13.7 g/dl (14.0-18.0); Mean Corpuscular HGB Conc 34.3 g/dl (31.0-36.0); Mean Corpuscular Volume 84.7 fL (80-98); Mean Platelet Volume 10.4 fL (9.4-12.4); Platelet Count 130 X10*3/uL (160-400); Red Blood Count 4.72 X10*6/uL (4.60-5.80); Red Cell Distribution Width 12.2 % (11.0-16.0); White Blood Count 7.9 X10*3/uL (4.8-10.8)
[2020-10-01 07:15] LABS: Lactate Dehydrogenase 570 U/L (118-273)
[2020-10-01 07:21] LABS: Anion Gap 13 (12-20); Blood Urea Nitrogen 25 mg/dL (9-16); Calcium 8.1 mg/dL (8.4-10.2); Carbon Dioxide 21 mmol/L (22-29); Chloride 108 mmol/L (96-108); Estimated Glomerular Filt Rate > 60; Glucose Random 129 mg/dL (60-115); Potassium 4.3 mmol/L (3.3-5.1); Sodium 138 mmol/L (135-145)
[2020-10-01] MEDS: dexAMETHasone 6 MG TABLET PO (07:37)
[2020-10-01] MEDS: Famotidine/PF 20 MG/2 ML VIAL IVPUSH ×2 (07:37→19:43)
[2020-10-01] MEDS: 0.9 % Sodium Chloride Flush 3 ML SYRINGE IVFLUSH ×3 (07:37→19:44)
[2020-10-01 07:39] LABS: Procalcitonin 0.08 ng/mL
[2020-10-01] MEDS: Benzonatate 100 MG CAPSULE PO (07:45)
[2020-10-01 08:34] LABS: Ferritin 2514 ng/mL (20-250)
[2020-10-01 09:04] LABS: C Reactive Protein 6.59 mg/dL (< or = 0.50)
--- NOTE | 2020-10-01 11:27 | PM.IMPN ---
Subjective Subjective Date of Service: 10/01/20 Interval History: Follow up covid 19 increasing hypoxia. asymptomatic no pain or discomfort prefers to lay on his side rather than sit in chair Physical Exam Vital Signs: Vital Signs: Last Vital Signs Temp 98.2 F 10/01/20 07:49 Pulse 65 10/01/20 07:49 Resp 24 H 10/01/20 07:49 BP 123/58 L 10/01/20 07:49 Pulse Ox 93 10/01/20 07:49 Body Mass Index 31.2 Appearing in no acute distress lung normal expansion heart regular rate rhythm, clear S1, S2 positive bowel sounds, abdomen is soft, nontender neuro patient is alert x3, no focal deficits Objective Data Current Medications Generic Name Dose Route Start Last Admin Trade Name Freq PRN Reason Stop Dose Admin Acetaminophen 650 mg 09/28/20 23:52 Acetaminophen 325 Mg Tablet PO Q6H PRN Pain, Mild (Pain Scale 1-3) Albuterol Sulfate 4 puff 09/28/20 23:56 Albuterol Sulfate 90 Mcg 8 Gm Inhaler INHALE Q2H PRN Shortness of Breath/Wheezing Azithromycin 500 mg 09/28/20 23:45 09/30/20 20:44 Azithromycin 500 Mg Tablet PO 500 mg BEDTIME VIHN Administration Benzonatate 100 mg 09/28/20 23:55 10/01/20 07:45 Benzonatate 100 Mg Capsule PO 100 mg TID PRN Administration Cough Dexamethasone 6 mg 09/29/20 09:00 10/01/20 07:37 Dexamethasone 6 Mg Tablet PO 6 mg DAILY VINH Administration Enoxaparin Sodium 40 mg 09/28/20 23:45 09/30/20 20:44 Enoxaparin Sodium 40 Mg/0.4 Ml Syringe SUBCUT 40 mg BEDTIME VINH Administration Famotidine 20 mg 09/29/20 09:00 10/01/20 07:37 Famotidine/Pf 20 Mg/2 Ml Vial IVPUSH 20 mg BID VINH Administration Remdesivir 100 mg/ Sodium 230 mls @ 115 mls/hr 10/01/20 16:00 Chloride IV 10/04/20 17:59 Q24H VINH Melatonin 6 mg 09/28/20 23:52 Melatonin 3 Mg Tablet PO BEDTIME PRN Insomnia Morphine Sulfate 1 mg 09/28/20 23:52 Morphine Sulfate 4 Mg/Ml Cartridge IVPUSH Q4H PRN Pain, SOB Senna 17.2 mg 09/28/20 23:52 Sennosides 8.6 Mg Tablet PO BEDTIME PRN Constipation Sodium Chloride 3 ml 09/29/20 00:00 10/01/20 07:37 0.9 % Sodium Chloride Flush 3 Ml Syringe IVFLUSH 3 ml QSHIFT VINH Administration Labs CBC & Chem 7: 10/01/20 05:44 10/01/20 05:44 Labs: Laboratory Results - last 24 hr 09/29/20 09/29/20 09/30/20 16:55 16:55 13:20 MCV MCH MCHC RDW Plt Count MPV Absolute Nucleated RBC Nucleated RBC % (auto) O2 Saturation 96.0 ABG pH at Pt Temp 7.42 ABG pH (Temp Correct) 7.43 ABG pCO2 at Pt Temp 27 L ABG pCO2 (Temp Corrct 26 L ABG pO2 at Pt Temp 86 ABG pO2 (Temp Correct 85 ABG HCO3 18 L ABG Base Excess (Actual) -4.7 Anion Gap Estim Creat Clear Calc Estimated GFR Random Glucose Calcium Ferritin Lactate Dehydrogenase C-Reactive Protein Procalcitonin Respiratory Panel Rivera See Note Adenovirus (Rapid PCR) Not Detected B.pert (TEM-PCR) Not Detected B.parapertussis DNA PCR Not Detected C. pneumoniae DNA (PCR) Not Detected Coronavirus (PCR) POSITIVE A Coronavirus OC43 (PCR) Not Detected Coronavirus HKU1 (PCR) Not Detected Coronavirus 229E (PCR) Not Detected Coronavirus NL63 (PCR) Not Detected Human Metapneumovir PCR Not Detected Influenza A (RT-PCR) Not Detected Influenza Type A (PCR) NEGATIVE Influenza B (RT-PCR) Not Detected Influenza Type B (PCR) NEGATIVE M. pneumoniae (PCR) Not Detected Parainfluenza 1 (PCR) Not Detected Parainfluenza 2 (PCR) Not Detected Parainfluenza 3 (PCR) Not Detected Parainfluenza 4 (PCR) Not Detected RSV (PCR) Not Detected RSV RNA Qual (PCR) NEGATIVE Entero/Rhino (PCR) Not Detected SARS-CoV-2 RNA (RT-PCR) Detected A 10/01/20 10/01/20 10/01/20 05:44 05:44 05:44 MCV 84.7 MCH 29.0 MCHC 34.3 RDW 12.2 Plt Count 130 L D MPV 10.4 Absolute Nucleated RBC 0.000 Nucleated RBC % (auto) 0.0 O2 Saturation ABG pH at Pt Temp ABG pH (Temp Correct) ABG pCO2 at Pt Temp ABG pCO2 (Temp Corrct ABG pO2 at Pt Temp ABG pO2 (Temp Correct ABG HCO3 ABG Base Excess (Actual) Anion Gap 13 Estim Creat Clear Calc 94.0 Estimated GFR > 60 Random Glucose 129 H D Calcium 8.1 L Ferritin 2514 H Lactate Dehydrogenase 570 H C-Reactive Protein 6.59 H Procalcitonin Respiratory Panel Rivera Adenovirus (Rapid PCR) B.pert (TEM-PCR) B.parapertussis DNA PCR C. pneumoniae DNA (PCR) Coronavirus (PCR) Coronavirus OC43 (PCR) Coronavirus HKU1 (PCR) Coronavirus 229E (PCR) Coronavirus NL63 (PCR) Human Metapneumovir PCR Influenza A (RT-PCR) Influenza Type A (PCR) Influenza B (RT-PCR) Influenza Type B (PCR) M. pneumoniae (PCR) Parainfluenza 1 (PCR) Parainfluenza 2 (PCR) Parainfluenza 3 (PCR) Parainfluenza 4 (PCR) RSV (PCR) RSV RNA Qual (PCR) Entero/Rhino (PCR) SARS-CoV-2 RNA (RT-PCR) 10/01/20 05:44 MCV MCH MCHC RDW Plt Count MPV Absolute Nucleated RBC Nucleated RBC % (auto) O2 Saturation ABG pH at Pt Temp ABG pH (Temp Correct) ABG pCO2 at Pt Temp ABG pCO2 (Temp Corrct ABG pO2 at Pt Temp ABG pO2 (Temp Correct ABG HCO3 ABG Base Excess (Actual) Anion Gap Estim Creat Clear Calc Estimated GFR Random Glucose Calcium Ferritin Lactate Dehydrogenase C-Reactive Protein Procalcitonin 0.08 Respiratory Panel Rivera Adenovirus (Rapid PCR) B.pert (TEM-PCR) B.parapertussis DNA PCR C. pneumoniae DNA (PCR) Coronavirus (PCR) Coronavirus OC43 (PCR) Coronavirus HKU1 (PCR) Coronavirus 229E (PCR) Coronavirus NL63 (PCR) Human Metapneumovir PCR Influenza A (RT-PCR) Influenza Type A (PCR) Influenza B (RT-PCR) Influenza Type B (PCR) M. pneumoniae (PCR) Parainfluenza 1 (PCR) Parainfluenza 2 (PCR) Parainfluenza 3 (PCR) Parainfluenza 4 (PCR) RSV (PCR) RSV RNA Qual (PCR) Entero/Rhino (PCR) SARS-CoV-2 RNA (RT-PCR) Progress Note: A&P (1) Pneumonia due to COVID-19 virus: Status: Acute Assessment and Plan: 69-year-old male with a past medical history of chronic back pain, history of COVID-19 positive in May of 2019; presented to the hospital with chief complaint of generalized weakness. Noted to have COVID-19 positive and hypoxia. Of note, patient mentioned that he was covid positive in 05/2019 however he then stated that the date was wrong and he was sick from what he thought was covid. Apparently he was sick in feb 2020 but was never formally diagnosed with covid 19. Acute hypoxic respiratory failure secondary to COVID-19 worsening hypoxia, up to 6 Lnc, now on non rebreather, asymptomatic blood gas within normal limits history of COVID and 2020 ID started remdesivir Decadron, azithromycin isolation, Monitor resp status closely Thrombocytopenia chronic no bleeding follow cbc Elevated ddimer cta neg secondary to covid DVT prophylaxis: Lovenox Code status: Full code Attending Dr. Ortiz Quality Stroke Does the patient have a stroke diagnosis?: No VTE Prior VTE?: No VTE Risk Level:: Medical - moderate - high VTE Device Contraindication: Treatment Not Indicated VTE Drug Contraindication: N/A - Med Ordered
--- NOTE | 2020-10-01 15:36 | PM.IDPN ---
Subjective Subjective Date of Service: 10/01/20 Critical Care Time (minutes): 15 Comment: He notes that his breathing is slightly better than this morning Objective Data Labs CBC & Chem 7: 10/01/20 05:44 10/01/20 05:44 Labs: Laboratory Results - last 24 hr 10/01/20 10/01/20 10/01/20 05:44 05:44 05:44 WBC 7.9 RBC 4.72 Hgb 13.7 L Hct 40.0 L MCV 84.7 MCH 29.0 MCHC 34.3 RDW 12.2 Plt Count 130 L D MPV 10.4 Absolute Nucleated RBC 0.000 Nucleated RBC % (auto) 0.0 Sodium 138 Potassium 4.3 Chloride 108 Carbon Dioxide 21 L Anion Gap 13 BUN 25 H Creatinine 0.98 Estim Creat Clear Calc 94.0 Estimated GFR > 60 Random Glucose 129 H D Calcium 8.1 L Ferritin 2514 H Lactate Dehydrogenase 570 H C-Reactive Protein 6.59 H Procalcitonin 10/01/20 05:44 WBC RBC Hgb Hct MCV MCH MCHC RDW Plt Count MPV Absolute Nucleated RBC Nucleated RBC % (auto) Sodium Potassium Chloride Carbon Dioxide Anion Gap BUN Creatinine Estim Creat Clear Calc Estimated GFR Random Glucose Calcium Ferritin Lactate Dehydrogenase C-Reactive Protein Procalcitonin 0.08 Physical Exam Vital Signs: Vital Signs: Last Vital Signs Temp 96.8 F 10/01/20 15:18 Pulse 65 10/01/20 15:18 Resp 22 H 10/01/20 15:18 BP 129/62 10/01/20 15:18 Pulse Ox 93 10/01/20 15:18 Body Mass Index 31.2 Const: General: cooperative HENMT: Head: Yes normal to inspection Mouth: Normal oral and palatal mucosa present Resp: Effort & Inspection: abnormal respiratory pattern Cardio: Rate: regular rate Rhythm: regular rhythm GI: Palpation (GI): Soft to palpation and nontender Skin: General skin exam: no rashes or lesions noted Extrem: General: Yes normal to inspection Assessment and Plan Assessment and plan (1) Pneumonia due to COVID-19 virus: Problem details: He now says he never had COVID in May He has it now though as cycle threshold is only 17 Status: Acute Assessment and Plan: I would continue steroids I added Remdesivir per protocol I would stop azithomycin as likely this is all COVID (2) Hypoxia: Status: Acute Time Spent With Patient Time: Total time spent is greater than 50% in coordination of care (as documented) at patient's floor/unit and/or counseling patient: Time with patient: 15 - 24 minutes
[2020-10-01] MEDS: Remdesivir 100 MG in 0.9 % Sodium Chloride 230 ML 115 MG IV (17:02)
[2020-10-01] MEDS: Enoxaparin Sodium 40 MG/0.4 ML SYRINGE SUBCUT (19:43)
[2020-10-02] VITALS (8 sets, daily range): BP systolic 116–151; BP diastolic 58–64; PULSE 54–67; RESP 18–24; TEMP 36–37.4; O2SAT 89–95
[2020-10-02] MEDS: Acetaminophen 325 MG TABLET 650 MG PO (00:17)
[2020-10-02 06:47] LABS: Hematocrit 39.9 % (42-52); Hemoglobin 13.6 g/dl (14.0-18.0); Mean Corpuscular HGB Conc 34.1 g/dl (31.0-36.0); Mean Corpuscular Hemoglobin 28.8 pg (27.0-33.0); Mean Corpuscular Volume 84.4 fL (80-98); Mean Platelet Volume 9.4 fL (9.4-12.4); Platelet Count 144 X10*3/uL (160-400); Red Blood Count 4.73 X10*6/uL (4.60-5.80); White Blood Count 7.7 X10*3/uL (4.8-10.8)
[2020-10-02 07:11] LABS: Lactate Dehydrogenase 764 U/L (118-273)
[2020-10-02 07:25] LABS: Anion Gap 12 (12-20); Blood Urea Nitrogen 24 mg/dL (9-16); Calcium 8.6 mg/dL (8.4-10.2); Carbon Dioxide 26 mmol/L (22-29); Chloride 107 mmol/L (96-108); Creatinine Clr Calc Pharmacy 78.7; Estimated Glomerular Filt Rate > 60; Glucose Random 160 mg/dL (60-115); Potassium 4.5 mmol/L (3.3-5.1); Sodium 140 mmol/L (135-145)
[2020-10-02 09:05] LABS: Ferritin 2778 ng/mL (20-250)
[2020-10-02] MEDS: dexAMETHasone 6 MG TABLET PO (09:13)
[2020-10-02] MEDS: Benzonatate 100 MG CAPSULE PO (09:13)
[2020-10-02] MEDS: 0.9 % Sodium Chloride Flush 3 ML SYRINGE IVFLUSH ×2 (09:13→16:05)
[2020-10-02] MEDS: Famotidine/PF 20 MG/2 ML VIAL IVPUSH ×2 (09:13→20:20)
--- NOTE | 2020-10-02 13:46 | PM.IMPN ---
Subjective Subjective Date of Service: 10/02/20 Interval History: Follow up Covid 19 increased oxygen some sob today Physical Exam Vital Signs: Vital Signs: Last Vital Signs Temp 98.3 F 10/02/20 11:23 Pulse 67 10/02/20 11:23 Resp 24 H 10/02/20 11:23 BP 126/58 L 10/02/20 11:23 Pulse Ox 92 10/02/20 11:23 Body Mass Index 31.2 Appearing in no acute distress lung sounds normal expansion heart regular rate rhythm abdomen nontender neuro patient is alert x3, no focal deficits Objective Data Current Medications Generic Name Dose Route Start Last Admin Trade Name Freq PRN Reason Stop Dose Admin Acetaminophen 650 mg 09/28/20 23:52 10/02/20 00:17 Acetaminophen 325 Mg Tablet PO 650 mg Q6H PRN Administration Pain, Mild (Pain Scale 1-3) Albuterol Sulfate 4 puff 09/28/20 23:56 Albuterol Sulfate 90 Mcg 8 Gm Inhaler INHALE Q2H PRN Shortness of Breath/Wheezing Benzonatate 100 mg 09/28/20 23:55 10/02/20 09:13 Benzonatate 100 Mg Capsule PO 100 mg TID PRN Administration Cough Dexamethasone 6 mg 09/29/20 09:00 10/02/20 09:13 Dexamethasone 6 Mg Tablet PO 6 mg DAILY VINH Administration Enoxaparin Sodium 40 mg 09/28/20 23:45 10/01/20 19:43 Enoxaparin Sodium 40 Mg/0.4 Ml Syringe SUBCUT 40 mg BEDTIME VINH Administration Famotidine 20 mg 09/29/20 09:00 10/02/20 09:13 Famotidine/Pf 20 Mg/2 Ml Vial IVPUSH 20 mg BID VINH Administration Remdesivir 100 mg/ Sodium 230 mls @ 115 mls/hr 10/01/20 16:00 10/01/20 19:48 Chloride IV 10/04/20 17:59 Infused Q24H VINH Infusion Melatonin 6 mg 09/28/20 23:52 Melatonin 3 Mg Tablet PO BEDTIME PRN Insomnia Morphine Sulfate 1 mg 09/28/20 23:52 Morphine Sulfate 4 Mg/Ml Cartridge IVPUSH Q4H PRN Pain, SOB Senna 17.2 mg 09/28/20 23:52 Sennosides 8.6 Mg Tablet PO BEDTIME PRN Constipation Sodium Chloride 3 ml 09/29/20 00:00 10/02/20 09:13 0.9 % Sodium Chloride Flush 3 Ml Syringe IVFLUSH 3 ml QSHIFT VINH Administration Labs CBC & Chem 7: 10/02/20 06:27 10/02/20 06:27 Labs: Laboratory Results - last 24 hr 10/02/20 10/02/20 10/02/20 06:27 06:27 06:27 MCV 84.4 MCH 28.8 MCHC 34.1 RDW 12.0 Plt Count 144 L MPV 9.4 Absolute Nucleated RBC 0.000 Nucleated RBC % (auto) 0.0 Anion Gap 12 Estim Creat Clear Calc 78.7 Estimated GFR > 60 Random Glucose 160 H Calcium 8.6 D Ferritin 2778 H Lactate Dehydrogenase 764 H C-Reactive Protein 7.50 H Microbiology Microbiology Results: Microbiology 10/01/20 09:09 Blood - Venous Blood Culture - Preliminary No growth after 24 hours. 10/01/20 09:02 Blood - Venous Blood Culture - Preliminary No growth after 24 hours. Progress Note: A&P (1) Pneumonia due to COVID-19 virus: Status: Acute Assessment and Plan: 69-year-old male with a past medical history of chronic back pain, history of COVID-19 positive in May of 2019; presented to the hospital with chief complaint of generalized weakness. Noted to have COVID-19 positive and hypoxia. Of note, patient mentioned that he was covid positive in 05/2019 however he then stated that the date was wrong and he was sick from what he thought was covid. Apparently he was sick in feb 2020 but was never formally diagnosed with covid 19. Acute hypoxic respiratory failure secondary to COVID-19. ferritin (2778), LDH (764) and CRP(7.50)worse. worsening hypoxia, now on Aerosol mask 80% 10 liters. 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 Continue Decadron, azithromycin isolation, Monitor resp status closely Thrombocytopenia chronic no bleeding follow cbc Elevated ddimer cta neg secondary to covid DVT prophylaxis: Lovenox Code status: Full code Attending Dr. Ortiz Quality Stroke Does the patient have a stroke diagnosis?: No VTE Prior VTE?: No VTE Risk Level:: Medical - moderate - high VTE Device Contraindication: Treatment Not Indicated VTE Drug Contraindication: N/A - Med Ordered
[2020-10-02] MEDS: Remdesivir 100 MG in 0.9 % Sodium Chloride 230 ML 115 MG IV (16:05)
[2020-10-02] MEDS: Enoxaparin Sodium 40 MG/0.4 ML SYRINGE SUBCUT (20:20)
[2020-10-03] MEDS: 0.9 % Sodium Chloride Flush 3 ML SYRINGE IVFLUSH ×3 (00:31→15:54)
[2020-10-03 03:46] VITALS: BP 133/63; PULSE 59; RESP 19; TEMP 37.1; O2SAT 94
[2020-10-03 06:32] LABS: PLT CLUMP 1
[2020-10-03 06:34] LABS: Hemoglobin 14.5 g/dl (14.0-18.0); Mean Corpuscular HGB Conc 34.5 g/dl (31.0-36.0); Mean Corpuscular Hemoglobin 29.2 pg (27.0-33.0); Mean Corpuscular Volume 84.7 fL (80-98); Mean Platelet Volume 9.1 fL (9.4-12.4); Platelet Count 157 X10*3/uL (160-400); Red Blood Count 4.96 X10*6/uL (4.60-5.80); Red Cell Distribution Width 12.1 % (11.0-16.0); White Blood Count 8.4 X10*3/uL (4.8-10.8)
[2020-10-03 07:04] LABS: Lactate Dehydrogenase 854 U/L (118-273)
[2020-10-03 07:08] LABS: Anion Gap 10 (12-20); Blood Urea Nitrogen 23 mg/dL (9-16); Calcium 8.4 mg/dL (8.4-10.2); Carbon Dioxide 28 mmol/L (22-29); Chloride 105 mmol/L (96-108); Creatinine Clr Calc Pharmacy 88.6; Estimated Glomerular Filt Rate > 60; Glucose Random 125 mg/dL (60-115); Potassium 4.4 mmol/L (3.3-5.1); Sodium 139 mmol/L (135-145)
[2020-10-03 07:49] VITALS: BP 125/59; PULSE 74; RESP 22; TEMP 37.7; O2SAT 85
[2020-10-03] MEDS: dexAMETHasone 6 MG TABLET PO (07:51)
[2020-10-03] MEDS: Famotidine/PF 20 MG/2 ML VIAL IVPUSH ×2 (07:52→20:45)
[2020-10-03 08:01] LABS: Ferritin 2879 ng/mL (20-250)
[2020-10-03] MEDS: ondansetron HCL 4 MG/2 ML VIAL IVPUSH (08:31)
[2020-10-03 09:38] LABS: D Dimer 14155 NG/ML
[2020-10-03 12:00] VITALS: BP 109/57; PULSE 80; RESP 23; TEMP 36.6; O2SAT 90
--- NOTE | 2020-10-03 12:43 | MHC.CM.PN ---
Male 69 DX Covid. Patient continues to require increased oxygen R/T SPo2. DP To be determined by the Patients recovery. The original DP was to Pts fathers home. No services and family transport. PT EVAL once Pt able to tolerate. CM will follow to assess for a change in discharge needs.
--- NOTE | 2020-10-03 14:09 | HO.PM.IMPN ---
Subjective Subjective Date of Service: 10/03/20 Interval History: seen and examined this AM reports feeling slight improvement, but still extreme hypoxia with minimal improvement reports he is unable to tolerate prone position reviewed and completed MOLST form him him, he does not want to be intubated under any circumstance, but would try cpap/bipap ROS General - no fevers or chills Cardiovascular - no chest pain Respiratory - +cough, shortness of breath, CHANEL Abdominal- no abdominal pain, nausea, vomiting, diarrhea Physical Exam Vital Signs: Vital Signs: Last Vital Signs Temp 97.9 F 10/03/20 12:00 Pulse 80 10/03/20 12:00 Resp 23 H 10/03/20 12:00 BP 109/57 L 10/03/20 12:00 Pulse Ox 90 L 10/03/20 12:00 Body Mass Index 31.2 Const: Other: General - no acute distress, appears comfortable Cardiovascular - regular rate and rhythm, S1-S2 Lungs - normal respiratory effort, clear to auscultation bilaterally, no wheezing Abdomen - soft, nontender, no rebound or guarding Extremities - no edema bilaterally Neuro - awake and alert, no focal deficits Objective Data Current Medications Generic Name Dose Route Start Last Admin Trade Name Freq PRN Reason Stop Dose Admin Acetaminophen 650 mg 09/28/20 23:52 10/02/20 00:17 Acetaminophen 325 Mg Tablet PO 650 mg Q6H PRN Administration Pain, Mild (Pain Scale 1-3) Albuterol Sulfate 4 puff 09/28/20 23:56 Albuterol Sulfate 90 Mcg 8 Gm Inhaler INHALE Q2H PRN Shortness of Breath/Wheezing Benzonatate 100 mg 09/28/20 23:55 10/02/20 09:13 Benzonatate 100 Mg Capsule PO 100 mg TID PRN Administration Cough Dexamethasone 6 mg 09/29/20 09:00 10/03/20 07:51 Dexamethasone 6 Mg Tablet PO 6 mg DAILY VINH Administration Enoxaparin Sodium 40 mg 09/28/20 23:45 10/02/20 20:20 Enoxaparin Sodium 40 Mg/0.4 Ml Syringe SUBCUT 40 mg BEDTIME VINH Administration Famotidine 20 mg 09/29/20 09:00 10/03/20 07:52 Famotidine/Pf 20 Mg/2 Ml Vial IVPUSH 20 mg BID VINH Administration Remdesivir 100 mg/ Sodium 230 mls @ 115 mls/hr 10/01/20 16:00 10/02/20 18:23 Chloride IV 10/04/20 17:59 Infused Q24H VINH Infusion Melatonin 6 mg 09/28/20 23:52 Melatonin 3 Mg Tablet PO BEDTIME PRN Insomnia Morphine Sulfate 1 mg 09/28/20 23:52 Morphine Sulfate 4 Mg/Ml Cartridge IVPUSH Q4H PRN Pain, SOB Ondansetron HCl 4 mg 10/03/20 08:18 10/03/20 08:31 Ondansetron Hcl 4 Mg/2 Ml Vial IVPUSH 4 mg Q8H PRN Administration Nausea and Vomiting Senna 17.2 mg 09/28/20 23:52 Sennosides 8.6 Mg Tablet PO BEDTIME PRN Constipation Sodium Chloride 3 ml 09/29/20 00:00 10/03/20 07:51 0.9 % Sodium Chloride Flush 3 Ml Syringe IVFLUSH 3 ml QSHIFT VINH Administration Labs CBC & Chem 7: 10/03/20 06:27 10/03/20 06:27 Labs: Laboratory Results - last 24 hr 10/03/20 10/03/20 10/03/20 06:27 06:27 06:27 WBC 8.4 RBC 4.96 Hgb 14.5 Hct 42.0 MCV 84.7 MCH 29.2 MCHC 34.5 RDW 12.1 Plt Count 157 L MPV 9.1 L Absolute Nucleated RBC 0.000 Nucleated RBC % (auto) 0.0 D-Dimer Sodium 139 Potassium 4.4 Chloride 105 Carbon Dioxide 28 Anion Gap 10 L BUN 23 H Creatinine 1.04 Estim Creat Clear Calc 88.6 Estimated GFR > 60 Random Glucose 125 H Calcium 8.4 Ferritin 2879 H Lactate Dehydrogenase 854 H 10/03/20 08:50 WBC RBC Hgb Hct MCV MCH MCHC RDW Plt Count MPV Absolute Nucleated RBC Nucleated RBC % (auto) D-Dimer 96147 Sodium Potassium Chloride Carbon Dioxide Anion Gap BUN Creatinine Estim Creat Clear Calc Estimated GFR Random Glucose Calcium Ferritin Lactate Dehydrogenase Microbiology Microbiology Results: Microbiology 10/01/20 09:09 Blood Culture - Preliminary Blood - Venous No growth after 48 hours. 10/01/20 09:02 Blood Culture - Preliminary Blood - Venous No growth after 48 hours. Quality Stroke Does the patient have a stroke diagnosis?: No VTE Prior VTE?: No VTE Risk Level:: Medical - moderate - high VTE Device Contraindication: Treatment Not Indicated VTE Drug Contraindication: N/A - Med Ordered Assessment and Plan (1) Pneumonia due to COVID-19 virus: Status: Acute Assessment and Plan: 69-year-old male with a past medical history of chronic back pain, history of COVID-19 positive in May of 2019; presented to the hospital with chief complaint of generalized weakness. Noted to have COVID-19 positive and hypoxia. Of note, patient mentioned that he was covid positive in 05/2019 however he then stated that the date was wrong and he was sick from what he thought was covid. Apparently he was sick in feb 2020 but was never formally diagnosed with covid 19. Acute hypoxic respiratory failure secondary to COVID-19 hypoxia persists FiO2 about the same unable to tolerate HFNC due to prior nasal septal defect continue decadron - will increase continue remedesivir -- day 4/5 d-dimer significantly elevated -- 14k (will repeat PE studies -- will use perfusion scan as he has already received contrast 5 days ago) continue other supportive care Thrombocytopenia mild and nearly normal MOLST form completed with patient - he does not want to be intubated. Okay with all other aspects of care. Called his Poli @ [phone] and updates given Full Code DVT elainex, Kulwant
[2020-10-03 15:49] VITALS: BP 152/75; PULSE 60; RESP 20; TEMP 36.6; O2SAT 96
[2020-10-03] MEDS: Remdesivir 100 MG in 0.9 % Sodium Chloride 230 ML 115 MG IV (15:53)
--- NOTE | 2020-10-03 16:31 | PM.IDPN ---
Subjective Subjective Date of Service: 10/03/20 Critical Care Time (minutes): 15 Comment: he is still short of breath Objective Data Labs CBC & Chem 7: 10/03/20 06:27 10/03/20 06:27 Labs: Laboratory Results - last 24 hr 10/03/20 10/03/20 10/03/20 06:27 06:27 06:27 WBC 8.4 RBC 4.96 Hgb 14.5 Hct 42.0 MCV 84.7 MCH 29.2 MCHC 34.5 RDW 12.1 Plt Count 157 L MPV 9.1 L Absolute Nucleated RBC 0.000 Nucleated RBC % (auto) 0.0 D-Dimer Sodium 139 Potassium 4.4 Chloride 105 Carbon Dioxide 28 Anion Gap 10 L BUN 23 H Creatinine 1.04 Estim Creat Clear Calc 88.6 Estimated GFR > 60 Random Glucose 125 H Calcium 8.4 Ferritin 2879 H Lactate Dehydrogenase 854 H 10/03/20 08:50 WBC RBC Hgb Hct MCV MCH MCHC RDW Plt Count MPV Absolute Nucleated RBC Nucleated RBC % (auto) D-Dimer 41035 Sodium Potassium Chloride Carbon Dioxide Anion Gap BUN Creatinine Estim Creat Clear Calc Estimated GFR Random Glucose Calcium Ferritin Lactate Dehydrogenase Microbiology Microbiology Results: Microbiology 10/01/20 09:09 Blood - Venous Blood Culture - Preliminary No growth after 48 hours. 10/01/20 09:02 Blood - Venous Blood Culture - Preliminary No growth after 48 hours. Physical Exam Vital Signs: Vital Signs: Last Vital Signs Temp 97.8 F 10/03/20 15:49 Pulse 60 10/03/20 15:49 Resp 20 10/03/20 15:49 BP 152/75 H 10/03/20 15:49 Pulse Ox 96 10/03/20 15:49 Body Mass Index 31.2 Const: General: cooperative Resp: Effort & Inspection: abnormal respiratory pattern Cardio: Rate: regular rate Rhythm: regular rhythm GI: Palpation (GI): Soft to palpation and nontender Assessment and Plan Assessment and plan (1) Pneumonia due to COVID-19 virus: Problem details: COVID pneumonia Getting steroids and Remdesivir He is on high levels oxygen,11 Status: Acute Assessment and Plan: Check CRP Pulmonary consult ?Remdesivir candidate Time Spent With Patient Time: Total time spent is greater than 50% in coordination of care (as documented) at patient's floor/unit and/or counseling patient: Time with patient: 15 - 24 minutes
[2020-10-03 17:58] LABS: C Reactive Protein 7.63 mg/dL (< or = 0.50)
[2020-10-03 19:16] VITALS: BP 135/61; PULSE 65; RESP 20; TEMP 36.6; O2SAT 90
[2020-10-03] MEDS: Enoxaparin Sodium 40 MG/0.4 ML SYRINGE SUBCUT (20:45)
[2020-10-03 23:12] VITALS: BP 124/61; PULSE 67; RESP 18; TEMP 37.7; O2SAT 92
[2020-10-04] VITALS (7 sets, daily range): BP systolic 114–146; BP diastolic 53–74; PULSE 65–88; RESP 16–20; TEMP 36.2–36.8; O2SAT 86–95
[2020-10-04] MEDS: 0.9 % Sodium Chloride Flush 3 ML SYRINGE IVFLUSH ×3 (00:24→16:36)
--- NOTE | 2020-10-04 02:45 | PC.NURSE ---
PT ON HUMIDIFIED AEROSOL FACE MASK 11L/80%;SATS DECREASING TO 82-83%.PT LYING ON RIGHT SIDE.INSTRUCTED TO LIE ON BACK WITH HOB UP.RESPIRATORY IN ROOM.SATS STILL STAYING 83-84%.O2 CHANGED TO 100% NON REBREATHER BY RESPIRATORY THERAPIST,SATS IMPROVED TO 95%.WILL CONT TO ASSESS.
[2020-10-04] MEDS: Famotidine/PF 20 MG/2 ML VIAL IVPUSH ×2 (08:08→21:23)
[2020-10-04] MEDS: dexAMETHasone 6 MG TABLET PO (08:09)
[2020-10-04 09:00] LABS: Hematocrit 46.8 % (42-52); Hemoglobin 15.9 g/dl (14.0-18.0); Mean Corpuscular Hemoglobin 28.8 pg (27.0-33.0); Mean Corpuscular Volume 84.8 fL (80-98); Mean Platelet Volume 9.3 fL (9.4-12.4); Platelet Count 141 X10*3/uL (160-400); Red Blood Count 5.52 X10*6/uL (4.60-5.80); White Blood Count 10.2 X10*3/uL (4.8-10.8)
[2020-10-04 09:29] LABS: Anion Gap 14 (12-20); Blood Urea Nitrogen 31 mg/dL (9-16); C Reactive Protein 11.61 mg/dL (< or = 0.50); Calcium 8.8 mg/dL (8.4-10.2); Carbon Dioxide 25 mmol/L (22-29); Chloride 104 mmol/L (96-108); Creatinine Clr Calc Pharmacy 100.1; Estimated Glomerular Filt Rate > 60; Glucose Random 128 mg/dL (60-115); Potassium 4.5 mmol/L (3.3-5.1); Sodium 138 mmol/L (135-145)
[2020-10-04 09:32] LABS: B Type Natriuretic Peptide 47 pg/mL (<100)
[2020-10-04 09:48] LABS: Procalcitonin 0.11 ng/mL
[2020-10-04 09:51] LABS: D Dimer 39750 NG/ML
--- NOTE | 2020-10-04 11:54 | P.PNIM_ITS ---
Subjective Subjective Date of Service: 10/04/20 Interval History: Seen and evaluated this morning, follow-up for COVID-19 pneumonia Reports feeling worse today, On non-rebreather. Not talking much. Review of Systems Review of Systems: Yes all other systems are reviewed and are negative Cardiovascular Cardiovascular: Denies chest pain Respiratory +SOB Gastrointestinal Gastrointestinal: Denies abdominal pain Physical Exam Vital Signs: Vital Signs: Last Vital Signs Temp 97.1 F 10/04/20 07:24 Pulse 85 10/04/20 07:24 Resp 16 10/04/20 07:24 BP 143/67 H 10/04/20 07:24 Pulse Ox 93 10/04/20 08:50 Body Mass Index 31.2 Const: General: comfortable, ill appearing and lethargic Nutritional Appear ance: well nourished Orientation/consciousness: lethargic HENMT: Head: Yes normocephalic and Yes atraumatic Eyes: Sclerae: sclerae normal Chest: Chest palpation & inspection: normal inspection of the chest Resp: Effort & Inspection: normal respiratory effort Cardio: Rate: regular rate Rhythm: regular rhythm GI: Palpation (GI): Soft to palpation and nontender Neuro: Cranial nerves: Yes CN's II-XII intact bilaterally and Yes Bilaterally intact EOM present Objective Data Current Medications Generic Name Dose Route Start Last Admin Trade Name Kishorq PRN Reason Stop Dose Admin Acetaminophen 650 mg 09/28/20 23:52 10/02/20 00:17 Acetaminophen 325 Mg Tablet PO 650 mg Q6H PRN Administration Pain, Mild (Pain Scale 1-3) Albuterol Sulfate 4 puff 09/28/20 23:56 Albuterol Sulfate 90 Mcg 8 Gm Inhaler INHALE Q2H PRN Shortness of Breath/Wheezing Benzonatate 100 mg 09/28/20 23:55 10/02/20 09:13 Benzonatate 100 Mg Capsule PO 100 mg TID PRN Administration Cough Dexamethasone 6 mg 09/29/20 09:00 10/04/20 08:09 Dexamethasone 6 Mg Tablet PO 6 mg DAILY VINH Administration Enoxaparin Sodium 40 mg 09/28/20 23:45 10/03/20 20:45 Enoxaparin Sodium 40 Mg/0.4 Ml Syringe SUBCUT 40 mg BEDTIME VINH Administration Famotidine 20 mg 09/29/20 09:00 10/04/20 08:08 Famotidine/Pf 20 Mg/2 Ml Vial IVPUSH 20 mg BID VINH Administration Remdesivir 100 mg/ Sodium 230 mls @ 115 mls/hr 10/01/20 16:00 10/03/20 18:28 Chloride IV 10/04/20 17:59 Infused Q24H VINH Infusion Melatonin 6 mg 09/28/20 23:52 Melatonin 3 Mg Tablet PO BEDTIME PRN Insomnia Ondansetron HCl 4 mg 10/03/20 08:18 10/03/20 08:31 Ondansetron Hcl 4 Mg/2 Ml Vial IVPUSH 4 mg Q8H PRN Administration Nausea and Vomiting Senna 17.2 mg 09/28/20 23:52 Sennosides 8.6 Mg Tablet PO BEDTIME PRN Constipation Sodium Chloride 3 ml 09/29/20 00:00 10/04/20 08:09 0.9 % Sodium Chloride Flush 3 Ml Syringe IVFLUSH 3 ml QSHIFT VINH Administration Labs CBC & Chem 7: 10/04/20 08:40 10/04/20 08:39 Labs: Laboratory Results - last 24 hr 10/03/20 10/04/20 10/04/20 16:52 08:39 08:39 WBC RBC Hgb Hct MCV MCH MCHC RDW Plt Count MPV Absolute Nucleated RBC Nucleated RBC % (auto) D-Dimer Sodium 138 Potassium 4.5 Chloride 104 Carbon Dioxide 25 Anion Gap 14 BUN 31 H Creatinine 0.92 Estim Creat Clear Calc 100.1 Estimated GFR > 60 Random Glucose 128 H Calcium 8.8 C-Reactive Protein 7.63 H 11.61 H B-Natriuretic Peptide Procalcitonin 0.11 10/04/20 10/04/20 10/04/20 08:40 08:40 08:40 WBC 10.2 RBC 5.52 Hgb 15.9 Hct 46.8 MCV 84.8 MCH 28.8 MCHC 34.0 RDW 12.0 Plt Count 141 L MPV 9.3 L Absolute Nucleated RBC 0.000 Nucleated RBC % (auto) 0.0 D-Dimer 90510 Sodium Potassium Chloride Carbon Dioxide Anion Gap BUN Creatinine Estim Creat Clear Calc Estimated GFR Random Glucose Calcium C-Reactive Protein B-Natriuretic Peptide 47 Procalcitonin Microbiology Microbiology Results: Microbiology 10/01/20 09:09 Blood Culture - Preliminary Blood - Venous No growth after 48 hours. 10/01/20 09:02 Blood Culture - Preliminary Blood - Venous No growth after 48 hours. Quality Stroke Does the patient have a stroke diagnosis?: No VTE Prior VTE?: No VTE Risk Level:: Medical - moderate - high VTE Device Contraindication: Treatment Not Indicated VTE Drug Contraindication: N/A - Med Ordered Assessment and Plan (1) Pneumonia due to COVID-19 virus: Status: Acute (2) Hypoxia: Status: Acute Assessment and Plan: 69-year-old male with a past medical history of chronic back pain, history of COVID-19 positive in May of 2019; presented to the hospital with chief complaint of generalized weakness. Noted to have COVID-19 positive and hypoxia. Of note, patient mentioned that he was covid positive in 05/2019 however he then stated that the date was wrong and he was sick from what he thought was covid. Apparently he was sick in feb 2020 but was never formally diagnosed with covid 19. Acute hypoxic respiratory failure secondary to COVID-19 hypoxia persists, on NRB. CRP, d-dimer, ferritin trending up unable to tolerate HFNC due to prior nasal septal defect -continue decadron day 07/30 -continue remedesivir - day 07/25 d-dimer significantly elevated at 14k, VQ from 10/04 very low probability for PE continue other supportive care -pulmonary consult Thrombocytopenia mild and nearly normal MOLST form completed with patient - he does not want to be intubated. Okay with all other aspects of care. Poli @ [phone] Full Code DVT pptx, Lovenox Attending: Dr. chavez
--- NOTE | 2020-10-04 15:43 | PM.CNPUL ---
History of Present Illness History of Present Illness Consult date: 10/04/20 Requesting physician: Tigist Anderson Reason for consult: other (COVID-19 positive, hypoxia) Chief complaint: Covid positive Narrative: 69-year-old gentleman, nonsmoker, with underlying history of chronic back pain and COVID-19 infection in May of 2019 admitted on 09/29/2020 with generalized weakness, dyspnea on exertion, and dry cough. Patient was noted to be mildly hypoxic with CT chest suggestive of underlying COVID-19 and positive COVID-19 serology. He has been admitted to general medical [facility] and started on systemic glucocorticoids and remdesivir. Patient has been evaluated by infectious disease service. His CT angiogram demonstrated no pulmonary emboli. His venous bilateral lower extremity Doppler showed no deep venous thrombosis. His perfusion scan showed segmental defect that is likely related to underlying prominent hilum. Patient continues on non-rebreather mask with O2 saturation above 90%. Review of Systems Constitutional: Constitutional: Denies daytime sleepiness, Denies excessive sweating, Denies fatigue, Denies fever(s), Denies lethargy, Denies malaise, Denies night sweats, Denies snoring and Denies weight loss Eyes: Eyes: Denies blurry vision and Denies itchy eyes ENT: Denies nasal congestion, Denies post nasal drip, Denies sinus pain, Denies sinus pressure and Denies other ( Thrush) Cardiovascular: Cardiovascular: Denies chest pain, Denies pedal edema, Reports dyspnea, Denies orthopnea and Denies paroxysmal nocturnal dyspnea Respiratory: Respiratory: Reports cough, Denies hemoptysis, Denies excessive phlegm production, Reports dyspnea, Denies snoring and Denies wheezing Gastrointestinal: Gastrointestinal: Denies abdominal pain and Denies heartburn Musculoskeletal: Musculoskeletal: Denies myalgias, Denies arthralgias and Denies joint swelling Integumentary/Breasts: Skin/Breast: Denies rash Neurologic: Denies memory loss and Denies seizure-like activity Psychiatric: Psychiatric: Denies abnormal sleep pattern, Denies anxiety and Denies memory loss Endocrine: Endocrine: Denies excessive sweating, Denies fatigue and Denies heat intolerance Hematologic/Lymphatic: Hematologic/Lymphatic: Denies easy bruising Allergic/Immunologic: Allergic/Immunologic: Denies itchy eyes, Denies seasonal rhinorrhea and Denies wheezing PMFSH Family History Family history: reviewed and not pertinent Social History Social History Household Members: Spouse Housing: House Do you presently have visiting nurse or other home services: No Patient Tobacco Use Status: Never used Tobacco Use of substances other than those prescribed or required for medical reasons: No Currently Displaying Signs/Symptoms of Drug Intoxication Withdrawal: No Have you been hit, kicked, punched, or otherwise hurt by someone within the past year? If so, by whom?: No Do you feel safe in your current relationship?: Yes Is there a partner from a previous relationship who is making you feel unsafe now?: No Are you made to feel afraid or neglected: No Advance Directives: Yes Advance Directives Information Provided: Yes Advance Directives on File: No Advance Directives Date on File: 09/29/20 Do you have thoughts of harming others: None Do you have a plan to hurt others: No Plan Recently lost weight without trying: Yes How much weight loss: 2-13 pounds Eating poorly because of decreased appetite: Yes Nutrition screen score: 4 Nutrition Risks: Poor intake 0-25% >4 days Poor oral hygiene: No Current occupational status: unemployed Meds Allergies Allergy/AdvReac Type Severity Reaction Status Date / Time Opioids - Morphine Analogues AdvReac Severe NAUSEA & Unverified 12/08/19 19:50 [OPIOIDS - MORPHINE VOMITING ANALOGUES] Active Medications: Current Medications Generic Name Dose Route Start Last Admin Trade Name Freq PRN Reason Stop Dose Admin Acetaminophen 650 mg 09/28/20 23:52 10/02/20 00:17 Acetaminophen 325 Mg Tablet PO 650 mg Q6H PRN Administration Pain, Mild (Pain Scale 1-3) Albuterol Sulfate 4 puff 09/28/20 23:56 Albuterol Sulfate 90 Mcg 8 Gm Inhaler INHALE Q2H PRN Shortness of Breath/Wheezing Benzonatate 100 mg 09/28/20 23:55 10/02/20 09:13 Benzonatate 100 Mg Capsule PO 100 mg TID PRN Administration Cough Dexamethasone 6 mg 09/29/20 09:00 10/04/20 08:09 Dexamethasone 6 Mg Tablet PO 6 mg DAILY VINH Administration Enoxaparin Sodium 40 mg 09/28/20 23:45 10/03/20 20:45 Enoxaparin Sodium 40 Mg/0.4 Ml Syringe SUBCUT 40 mg BEDTIME VINH Administration Famotidine 20 mg 09/29/20 09:00 10/04/20 08:08 Famotidine/Pf 20 Mg/2 Ml Vial IVPUSH 20 mg BID VINH Administration Remdesivir 100 mg/ Sodium 230 mls @ 115 mls/hr 10/01/20 16:00 10/03/20 18:28 Chloride IV 10/04/20 17:59 Infused Q24H VINH Infusion Melatonin 6 mg 09/28/20 23:52 Melatonin 3 Mg Tablet PO BEDTIME PRN Insomnia Ondansetron HCl 4 mg 10/03/20 08:18 10/03/20 08:31 Ondansetron Hcl 4 Mg/2 Ml Vial IVPUSH 4 mg Q8H PRN Administration Nausea and Vomiting Senna 17.2 mg 09/28/20 23:52 Sennosides 8.6 Mg Tablet PO BEDTIME PRN Constipation Sodium Chloride 3 ml 09/29/20 00:00 10/04/20 08:09 0.9 % Sodium Chloride Flush 3 Ml Syringe IVFLUSH 3 ml QSHIFT VINH Administration Home Medications Medication Instructions Recorded Confirmed Last Taken Type No Known Home Meds 09/28/20 09/28/20 Unknown History Physical Exam Vital Signs: Vital Signs: Last Vital Signs Temp 97.4 F 10/04/20 12:00 Pulse 72 10/04/20 12:00 Resp 18 10/04/20 12:00 BP 114/53 L 10/04/20 12:00 Pulse Ox 95 10/04/20 12:00 Body Mass Index 31.2 Const: General: no acute distress, alert and awake Eyes: Sclerae: sclerae normal EOM: EOMs intact bilaterally Neck: Neck: Yes no lymphadenopathy, Yes trachea midline and Yes supple Resp: Effort & Inspection: normal respiratory effort and no respiratory distress Auscultation: crackles (Mild bilateral) Cardio: Rate: regular rate Rhythm: regular rhythm Heart sounds: no gallops, no murmurs and no rubs GI: Palpation (GI): Soft to palpation and Other GI palpation findings present ( Nontender) Auscultation: normal bowel sounds Extrem: General: Yes no pedal edema, No clubbing and No cyanosis Results Laboratory Findings CBC and BMP: 10/04/20 08:40 10/04/20 08:39 ABG, PT/INR, D-dimer: PT/INR, D-dimer D-Dimer [id number] NG/ML 10/04/20 08:40 Abnormal lab findings: Abnormal Labs 09/28/20 09/28/20 09/28/20 16:22 16:22 17:31 WBC 4.6 L Hgb Hct Plt Count 87 L MPV Immature Gran % (Auto) Neut % (Auto) 83.5 H Lymph % (Auto) 11.4 L Lymph # (Auto) 0.5 L ABG pCO2 at Pt Temp ABG pCO2 (Temp Corrct ABG HCO3 Sodium 134 L Carbon Dioxide Anion Gap BUN 18 H Random Glucose Calcium 8.3 L Ferritin Total Bilirubin 1.1 H Direct Bilirubin 0.6 H AST 45 H Lactate Dehydrogenase C-Reactive Protein Total Protein 6.4 L Urine Protein 2+ H Urine Blood 2+ H Urine RBC 5-9 H Coronavirus (PCR) COVID-19 ([facility]) SARS-CoV-2 RNA (RT-PCR) 09/28/20 09/29/20 09/29/20 19:55 05:56 05:56 WBC 4.4 L Hgb 13.7 L Hct 40.3 L Plt Count 88 L MPV Immature Gran % (Auto) 0.5 H Neut % (Auto) 81.1 H Lymph % (Auto) 14.3 L Lymph # (Auto) 0.6 L ABG pCO2 at Pt Temp ABG pCO2 (Temp Corrct ABG HCO3 Sodium 133 L Carbon Dioxide Anion Gap BUN 21 H Random Glucose 207 H D Calcium 7.9 L Ferritin Total Bilirubin Direct Bilirubin AST Lactate Dehydrogenase C-Reactive Protein Total Protein Urine Protein Urine Blood Urine RBC Coronavirus (PCR) COVID-19 ([facility]) Positive A SARS-CoV-2 RNA (RT-PCR) 09/29/20 09/29/20 09/30/20 16:55 16:55 13:20 WBC Hgb Hct Plt Count MPV Immature Gran % (Auto) Neut % (Auto) Lymph % (Auto) Lymph # (Auto) ABG pCO2 at Pt Temp 27 L ABG pCO2 (Temp Corrct 26 L ABG HCO3 18 L Sodium Carbon Dioxide Anion Gap BUN Random Glucose Calcium Ferritin Total Bilirubin Direct Bilirubin AST Lactate Dehydrogenase C-Reactive Protein Total Protein Urine Protein Urine Blood Urine RBC Coronavirus (PCR) POSITIVE A COVID-19 ([facility]) SARS-CoV-2 RNA (RT-PCR) Detected A 10/01/20 10/01/20 10/01/20 05:44 05:44 05:44 WBC Hgb 13.7 L Hct 40.0 L Plt Count 130 L D MPV Immature Gran % (Auto) Neut % (Auto) Lymph % (Auto) Lymph # (Auto) ABG pCO2 at Pt Temp ABG pCO2 (Temp Corrct ABG HCO3 Sodium Carbon Dioxide 21 L Anion Gap BUN 25 H Random Glucose 129 H D Calcium 8.1 L Ferritin 2514 H Total Bilirubin Direct Bilirubin AST Lactate Dehydrogenase 570 H C-Reactive Protein 6.59 H Total Protein Urine Protein Urine Blood Urine RBC Coronavirus (PCR) COVID-19 ([facility]) SARS-CoV-2 RNA (RT-PCR) 10/02/20 10/02/20 10/02/20 06:27 06:27 06:27 WBC Hgb 13.6 L Hct 39.9 L Plt Count 144 L MPV Immature Gran % (Auto) Neut % (Auto) Lymph % (Auto) Lymph # (Auto) ABG pCO2 at Pt Temp ABG pCO2 (Temp Corrct ABG HCO3 Sodium Carbon Dioxide Anion Gap BUN 24 H Random Glucose 160 H Calcium Ferritin 2778 H Total Bilirubin Direct Bilirubin AST Lactate Dehydrogenase 764 H C-Reactive Protein 7.50 H Total Protein Urine Protein Urine Blood Urine RBC Coronavirus (PCR) COVID-19 ([facility]) SARS-CoV-2 RNA (RT-PCR) 10/03/20 10/03/20 10/03/20 06:27 06:27 06:27 WBC Hgb Hct Plt Count 157 L MPV 9.1 L Immature Gran % (Auto) Neut % (Auto) Lymph % (Auto) Lymph # (Auto) ABG pCO2 at Pt Temp ABG pCO2 (Temp Corrct ABG HCO3 Sodium Carbon Dioxide Anion Gap 10 L BUN 23 H Random Glucose 125 H Calcium Ferritin 2879 H Total Bilirubin Direct Bilirubin AST Lactate Dehydrogenase 854 H C-Reactive Protein Total Protein Urine Protein Urine Blood Urine RBC Coronavirus (PCR) COVID-19 ([facility]) SARS-CoV-2 RNA (RT-PCR) 10/03/20 10/04/20 10/04/20 16:52 08:39 08:40 WBC Hgb Hct Plt Count 141 L MPV 9.3 L Immature Gran % (Auto) Neut % (Auto) Lymph % (Auto) Lymph # (Auto) ABG pCO2 at Pt Temp ABG pCO2 (Temp Corrct ABG HCO3 Sodium Carbon Dioxide Anion Gap BUN 31 H Random Glucose 128 H Calcium Ferritin Total Bilirubin Direct Bilirubin AST Lactate Dehydrogenase C-Reactive Protein 7.63 H 11.61 H Total Protein Urine Protein Urine Blood Urine RBC Coronavirus (PCR) COVID-19 ([facility]) SARS-CoV-2 RNA (RT-PCR) Microbiology: Microbiology 10/01/20 09:09 Blood - Venous Blood Culture - Preliminary No growth after 48 hours. 10/01/20 09:02 Blood - Venous Blood Culture - Preliminary No growth after 48 hours. Assessment and Plan (1) Acute respiratory distress syndrome (ARDS) due to COVID-19 virus: Status: Acute Impression: 69-year-old gentleman with COVID-19 related acute hypoxic respiratory failure/ARDS, now maintaining normoxemia on non-rebreather mask. His chest imaging is negative for pulmonary emboli. Recommendation: Agree with systemic glucocorticoids and a course of remdesivir. (2) Acute respiratory failure with hypoxia: Status: Acute Procedures Date of Service Date of Service: 10/04/20
[2020-10-04] MEDS: Remdesivir 100 MG in 0.9 % Sodium Chloride 230 ML 115 MG IV (16:40)
[2020-10-04] MEDS: Enoxaparin Sodium 40 MG/0.4 ML SYRINGE SUBCUT (21:23)
[2020-10-05 02:17] LABS: Legionella Ag Urine Not Detected (Not Detected)
[2020-10-05 03:58] VITALS: BP 127/80; PULSE 86; RESP 20; TEMP 36.4; O2SAT 96
[2020-10-05 08:00] VITALS: BP 125/58; PULSE 78; RESP 18; TEMP 36.8; O2SAT 98
[2020-10-05] MEDS: Famotidine/PF 20 MG/2 ML VIAL IVPUSH (09:01)
[2020-10-05] MEDS: dexAMETHasone 6 MG TABLET PO (09:01)
[2020-10-05] MEDS: 0.9 % Sodium Chloride Flush 3 ML SYRINGE IVFLUSH (09:15)
--- NOTE | 2020-10-05 11:19 | MHC.CM.PN ---
Per ROUNDS discussion, Patient us not yet medically cleared for dc (still requiring non rebreather on and off). Home is the goal for dc and CM will follow for possible need to adjust the dc plan.
[2020-10-05 11:35] VITALS: BP 135/70; PULSE 73; RESP 16; TEMP 37.6; O2SAT 91
--- NOTE | 2020-10-05 12:18 | HO.PM.IMPN ---
Subjective Subjective Date of Service: 10/06/20 Interval History: seen and examined this morning follow up for covid 19 oxygenation stable overnight patient reporting breathing feels about the same, having body aches Constitutional Constitutional: Reports body ache(s), Denies chills and Reports malaise Cardiovascular Cardiovascular: Denies chest pain and Denies palpitations Gastrointestinal Gastrointestinal: Denies diarrhea and Denies vomiting Endocrine Endocrine: Denies palpitations Physical Exam Vital Signs: Vital Signs: Last Vital Signs Temp 99.7 F 10/05/20 11:35 Pulse 73 10/05/20 11:35 Resp 16 10/05/20 11:35 BP 135/70 10/05/20 11:35 Pulse Ox 91 L 10/05/20 11:35 Body Mass Index 31.2 Const: General: comfortable, alert, awake and tired appearing Nutritional Appearance: well nourished HENMT: Head: Yes normocephalic and Yes atraumatic Eyes: Sclerae: sclerae normal Chest: Chest palpation & inspection: normal inspection of the chest Resp: Effort & Inspection: normal respiratory effort and no respiratory distress Cardio: Rate: regular rate Rhythm: regular rhythm GI: Palpation (GI): Soft to palpation and nontender Neuro: Cranial nerves: Yes CN's II-XII intact bilaterally and Yes Bilaterally intact EOM present Extrem: Other: no leg edema Objective Data Current Medications Generic Name Dose Route Start Last Admin Trade Name Freq PRN Reason Stop Dose Admin Acetaminophen 650 mg 09/28/20 23:52 10/02/20 00:17 Acetaminophen 325 Mg Tablet PO 650 mg Q6H PRN Administration Pain, Mild (Pain Scale 1-3) Albuterol Sulfate 4 puff 09/28/20 23:56 Albuterol Sulfate 90 Mcg 8 Gm Inhaler INHALE Q2H PRN Shortness of Breath/Wheezing Benzonatate 100 mg 09/28/20 23:55 10/02/20 09:13 Benzonatate 100 Mg Capsule PO 100 mg TID PRN Administration Cough Dexamethasone 6 mg 09/29/20 09:00 10/05/20 09:01 Dexamethasone 6 Mg Tablet PO 6 mg DAILY VINH Administration Enoxaparin Sodium 40 mg 09/28/20 23:45 10/04/20 21:23 Enoxaparin Sodium 40 Mg/0.4 Ml Syringe SUBCUT 40 mg BEDTIME VINH Administration Famotidine 20 mg 09/29/20 09:00 10/05/20 09:01 Famotidine/Pf 20 Mg/2 Ml Vial IVPUSH 20 mg BID VINH Administration Melatonin 6 mg 09/28/20 23:52 Melatonin 3 Mg Tablet PO BEDTIME PRN Insomnia Ondansetron HCl 4 mg 10/03/20 08:18 10/03/20 08:31 Ondansetron Hcl 4 Mg/2 Ml Vial IVPUSH 4 mg Q8H PRN Administration Nausea and Vomiting Senna 17.2 mg 09/28/20 23:52 Sennosides 8.6 Mg Tablet PO BEDTIME PRN Constipation Sodium Chloride 3 ml 09/29/20 00:00 10/05/20 09:15 0.9 % Sodium Chloride Flush 3 Ml Syringe IVFLUSH 3 ml QSHIFT VINH Administration Labs CBC & Chem 7: 10/06/20 04:38 10/06/20 04:38 Labs: Laboratory Results - last 24 hr 09/29/20 18:35 Ur L.pneumophila Ag Not Detected Quality Stroke Does the patient have a stroke diagnosis?: No VTE Prior VTE?: No VTE Risk Level:: Medical - moderate - high VTE Device Contraindication: Treatment Not Indicated VTE Drug Contraindication: N/A - Med Ordered Assessment and Plan (1) Pneumonia due to COVID-19 virus: Status: Acute (2) Hypoxia: Status: Acute Assessment and Plan: 69-year-old male with a past medical history of chronic back pain, history of COVID-19 positive in May of 2019; presented to the hospital with chief complaint of generalized weakness. Noted to have COVID-19 positive and hypoxia. Of note, patient mentioned that he was covid positive in 05/2019 however he then stated that the date was wrong and he was sick from what he thought was covid. Apparently he was sick in feb 2020 but was never formally diagnosed with covid 19. Acute hypoxic respiratory failure secondary to COVID-19 hypoxia persists, on NRB. 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 Okay with all other aspects of care. Poli @ [phone] Full Code DVT pptx, [facility] Attending: Dr. chavez
[2020-10-05 15:18] VITALS: BP 132/65; PULSE 65; RESP 20; TEMP 36.4; O2SAT 93
[2020-10-05 19:31] VITALS: BP 140/72; PULSE 66; RESP 20; TEMP 36.5; O2SAT 93
[2020-10-05] MEDS: Enoxaparin Sodium 40 MG/0.4 ML SYRINGE SUBCUT (21:21)
[2020-10-05] MEDS: Ascorbic Acid 500 MG TABLET PO (21:22)
[2020-10-05] MEDS: Sodium Chloride 0.65 % Nasal 44 ML SPRBTL 1 SPRAY NOSTRIL-B (22:34)
[2020-10-06] VITALS (8 sets, daily range): BP systolic 117–126; BP diastolic 54–69; PULSE 66–80; RESP 18–34; TEMP 36–37.4; O2SAT 90–98
[2020-10-06] MEDS: Sodium Chloride 0.65 % Nasal 44 ML SPRBTL 1 SPRAY NOSTRIL-B (03:59)
[2020-10-06 05:07] LABS: Hematocrit 44.4 % (42-52); Hemoglobin 15.2 g/dl (14.0-18.0); Mean Corpuscular HGB Conc 34.2 g/dl (31.0-36.0); Mean Corpuscular Hemoglobin 28.8 pg (27.0-33.0); Mean Corpuscular Volume 84.1 fL (80-98); Mean Platelet Volume 9.2 fL (9.4-12.4); Red Blood Count 5.28 X10*6/uL (4.60-5.80); Red Cell Distribution Width 11.9 % (11.0-16.0); White Blood Count 10.1 X10*3/uL (4.8-10.8)
[2020-10-06 05:24] LABS: Platelet Count 95 X10*3/uL (160-400)
[2020-10-06 05:35] LABS: Anion Gap 17 (12-20); Blood Urea Nitrogen 32 mg/dL (9-16); Calcium 8.2 mg/dL (8.4-10.2); Carbon Dioxide 21 mmol/L (22-29); Chloride 104 mmol/L (96-108); Creatinine Clr Calc Pharmacy 101.2; Estimated Glomerular Filt Rate > 60; Glucose Random 134 mg/dL (60-115); Potassium 4.8 mmol/L (3.3-5.1); Sodium 137 mmol/L (135-145)
[2020-10-06 05:36] LABS: Alanine Aminotransferase 26 U/L (0-40); Alkaline Phosphatase 71 U/L (39-117); Aspartate Amino Transferase 28 U/L (5-37); Bilirubin Direct 0.7 mg/dL (0.0-0.5); Bilirubin Total 1.5 mg/dL (0.0-1.0); C Reactive Protein 15.61 mg/dL (< or = 0.50); Total Protein 5.7 g/dL (6.5-8.0)
--- NOTE | 2020-10-06 06:15 | PC.NURSE ---
pt desat into low 70's while prone on NRB 15L. Pt instructed to cough deeply, lungs clear and slightly diminished in the bases. Respiratory notified, and asked to bedside. Pt sat eventually came back up to 90%. MD notified. Will continue to watch closely.
[2020-10-06] MEDS: 0.9 % Sodium Chloride Flush 3 ML SYRINGE IVFLUSH ×3 (08:40→20:45)
[2020-10-06] MEDS: dexAMETHasone sod phosphate 4 MG/ML VIAL 6 MG IVPUSH (09:34)
--- NOTE | 2020-10-06 11:13 | HO.PM.IMPN ---
Subjective Subjective Date of Service: 10/06/20 <MONTSERRAT Mancera - Last Filed: 10/06/20 11:54> 10/06/20 <Joe Winchester MD - Last Filed: 10/06/20 12:19> Interval History: seen and examined this morning rapid response called for oxygen saturations in the 60s, but saturations improved with placement of new NRB otherwise feeling about the same. denies body aches today not eating much per nurse report <MONTSERRAT Mancera - Last Filed: 10/06/20 11:54> Constitutional Constitutional: Denies body ache(s), Denies chills, Denies fever(s) and Reports malaise <MONTSERRAT Mancera Last Filed: 10/06/20 11:54> Cardiovascular Cardiovascular: Denies chest pain and Denies palpitations <MONTSERRAT Mancera - Last Filed: 10/06/20 11:54> Gastrointestinal Gastrointestinal: Denies abdominal pain <MONTSERRAT Mancera - Last Filed: 10/06/20 11:54> Endocrine Endocrine: Denies palpitations <MONTSERRAT Mancera Last Filed: 10/06/20 11:54> Physical Exam Vital Signs: Vital Signs: Last Vital Signs Temp 97.2 F 10/06/20 09:35 Pulse 79 10/06/20 09:35 Resp 18 10/06/20 09:35 BP 125/58 L 10/06/20 09:35 Pulse Ox 90 L 10/06/20 09:35 Body Mass Index 31.2 <MONTSERRAT Mancera - Last Filed: 10/06/20 11:54> Const: General: comfortable, alert, awake and tired appearing <MONTSERRAT Mancera Last Filed: 10/06/20 11:54> Nutritional Appearance: well nourished <MONTSERRAT Mancera Last Filed: 10/06/20 11:54> HENMT: Head: Yes normocephalic and Yes atraumatic <MONTSERRAT Mancera Last Filed: 10/06/20 11:54> Eyes: Sclerae: sclerae normal <MONTSERRAT Mancera Last Filed: 10/06/20 11:54> Chest: Chest palpation & inspection: normal inspection of the chest <MONTSERRAT Mancera Last Filed: 10/06/20 11:54> Resp: Effort & Inspection: normal respiratory effort and no respiratory distress <MONTSERRAT Mancera Last Filed: 10/06/20 11:54> Cardio: Rate: regular rate <MONTSERRAT Mancera Last Filed: 10/06/20 11:54> Rhythm: regular rhythm <MONTSERRAT Mancera - Last Filed: 10/06/20 11:54> GI: Palpation (GI): Soft to palpation and nontender <MONTSERRAT Mancera Last Filed: 10/06/20 11:54> Neuro: Cranial nerves: Yes CN's II-XII intact bilaterally and Yes Bilaterally intact EOM present <MONTSERRAT Mancera Last Filed: 10/06/20 11:54> Extrem: Other: no leg edema <MONTSERRAT Mancera Last Filed: 10/06/20 11:54> Objective Data Current Medications Generic Name Dose Route Start Last Admin Trade Name Freq PRN Reason Stop Dose Admin Acetaminophen 650 mg 09/28/20 23:52 10/02/20 00:17 Acetaminophen 325 Mg Tablet PO 650 mg Q6H PRN Administration Pain, Mild (Pain Scale 1-3) Albuterol Sulfate 4 puff 09/28/20 23:56 Albuterol Sulfate 90 Mcg 8 Gm Inhaler INHALE Q2H PRN Shortness of Breath/Wheezing Ascorbic Acid 500 mg 10/05/20 21:00 10/06/20 08:58 Ascorbic Acid 500 Mg Tablet PO Not Given BID VINH Benzonatate 100 mg 09/28/20 23:55 10/02/20 09:13 Benzonatate 100 Mg Capsule PO 100 mg TID PRN Administration Cough Dexamethasone Sodium Phosphate 6 mg 10/06/20 09:05 10/06/20 09:34 Dexamethasone Sod Phosphate 4 Mg/Ml Vial IVPUSH 6 mg DAILY VINH Administration Enoxaparin Sodium 40 mg 09/28/20 23:45 10/05/20 21:21 Enoxaparin Sodium 40 Mg/0.4 Ml Syringe SUBCUT 40 mg BEDTIME VINH Administration Famotidine 20 mg 10/06/20 09:00 10/06/20 08:58 Famotidine 20 Mg Tablet PO Not Given DAILY VINH Melatonin 6 mg 09/28/20 23:52 Melatonin 3 Mg Tablet PO BEDTIME PRN Insomnia Ondansetron HCl 4 mg 10/03/20 08:18 10/03/20 08:31 Ondansetron Hcl 4 Mg/2 Ml Vial IVPUSH 4 mg Q8H PRN Administration Nausea and Vomiting Senna 17.2 mg 09/28/20 23:52 Sennosides 8.6 Mg Tablet PO BEDTIME PRN Constipation Sodium Chloride 3 ml 09/29/20 00:00 10/06/20 08:40 0.9 % Sodium Chloride Flush 3 Ml Syringe IVFLUSH 3 ml QSHIFT VINH Administration Sodium Chloride 1 spray 10/05/20 21:37 10/06/20 03:59 Sodium Chloride 0.65 % Nasal 44 Ml Sprbtl NOSTRIL-B 1 spray Q1H PRN Administration Nasal Congestion <MONTSERRAT Mancera - Last Filed: 10/06/20 11:54> Labs CBC & Chem 7: : 10/06/20 04:38 10/06/20 04:38 <MONTSERRAT Mancera - Last Filed: 10/06/20 11:54> Labs: Laboratory Results - last 24 hr 10/06/20 10/06/20 10/06/20 04:38 04:38 04:38 WBC 10.1 RBC 5.28 Hgb 15.2 Hct 44.4 MCV 84.1 MCH 28.8 MCHC 34.2 RDW 11.9 Plt Count 95 L D MPV 9.2 L Absolute Nucleated RBC 0.000 Nucleated RBC % (auto) 0.0 Sodium 137 Potassium 4.8 Chloride 104 Carbon Dioxide 21 L Anion Gap 17 BUN 32 H Creatinine 0.91 Estim Creat Clear Calc 101.2 Estimated GFR > 60 Random Glucose 134 H Calcium 8.2 L D Total Bilirubin Direct Bilirubin AST ALT Alkaline Phosphatase C-Reactive Protein C-React Prot High Sens Cancelled Total Protein Albumin 10/06/20 04:38 WBC RBC Hgb Hct MCV MCH MCHC RDW Plt Count MPV Absolute Nucleated RBC Nucleated RBC % (auto) Sodium Potassium Chloride Carbon Dioxide Anion Gap BUN Creatinine Estim Creat Clear Calc Estimated GFR Random Glucose Calcium Total Bilirubin 1.5 H Direct Bilirubin 0.7 H AST 28 ALT 26 Alkaline Phosphatase 71 D C-Reactive Protein 15.61 H C-React Prot High Sens Total Protein 5.7 L Albumin 3.0 L <MONTSERRAT Mancera - Last Filed: 10/06/20 11:54> Quality Stroke Does the patient have a stroke diagnosis?: No <MONTSERRAT Mancera - Last Filed: 10/06/20 11:54> VTE Prior VTE?: No <MONTSERRAT Mancera - Last Filed: 10/06/20 11:54> VTE Risk Level:: Medical - moderate - high <MONTSERRAT Mancera - Last Filed: 10/06/20 11:54> VTE Device Contraindication: Treatment Not Indicated <MONTSERRAT Mancera - Last Filed: 10/06/20 11:54> VTE Drug Contraindication: N/A - Med Ordered <MONTSERRAT Mancera - Last Filed: 10/06/20 11:54> Assessment and Plan (1) Pneumonia due to COVID-19 virus: Status: Acute <MONTSERRAT Mancera - Last Filed: 10/06/20 11:54> (2) Hypoxia: Status: Acute <MONTSERRAT Mancera - Last Filed: 10/06/20 11:54> Assessment and Plan: 69-year-old male with a past medical history of chronic back pain, history of COVID-19 positive in May of 2019; presented to the hospital with chief complaint of generalized weakness. Noted to have COVID-19 positive and hypoxia. Of note, patient mentioned that he was covid positive in 05/2019 however he then stated that the date was wrong and he was sick from what he thought was covid. Apparently he was sick in feb 2020 but was never formally diagnosed with covid 19. Acute hypoxic respiratory failure secondary to COVID-19 hypoxia persists, on NRB. 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 Therefore will continue with DVT ppx dose of lovenox -continue decadron day 09/29 -s/p treatment with remedesivir -vitamin C added at request of family -continue other supportive care -seen by pulmonary -seen by ID Thrombocytopenia -follow CBC MOLST form completed with patient - he does not want to be intubated. Okay with all other aspects of care. Poli @ [phone] Full Code DVT pptx, Lovenox Attending: Dr. Winchester <MONTSERRAT Mancera - Last Filed: 10/06/20 11:54>
--- NOTE | 2020-10-06 11:14 | PC.NURSE ---
This AM around 0830, patient de-satted to 65% on 100% non-rebreather when rolled from prone to side. [employer] MACHINE LOADER to bedside. Patient stabilized with O2 SAT in the 90s. No need for BiPap at this time per respiratory. Will continue to monitor.
[2020-10-06] MEDS: Ascorbic Acid 500 MG TABLET PO (20:44)
[2020-10-06] MEDS: Melatonin 3 MG TABLET 6 MG PO (20:44)
[2020-10-06] MEDS: Enoxaparin Sodium 40 MG/0.4 ML SYRINGE SUBCUT (20:44)
[2020-10-06] MEDS: LORazepam 2 MG/ML VIAL 0.5 MG IVPUSH (23:10)
[2020-10-07] VITALS (22 sets, daily range): BP systolic 113–134; BP diastolic 51–70; PULSE 60–86; RESP 14–36; TEMP 36.6–38.4; O2SAT 80–94
[2020-10-07] MEDS: 0.9 % Sodium Chloride Flush 3 ML SYRINGE IVFLUSH ×2 (08:02→19:29)
[2020-10-07] MEDS: dexAMETHasone sod phosphate 4 MG/ML VIAL 6 MG IVPUSH (08:02)
[2020-10-07] MEDS: Famotidine 20 MG TABLET PO (08:02)
[2020-10-07] MEDS: Ascorbic Acid 500 MG TABLET PO (08:02)
[2020-10-07 08:42] LABS: VBG Base Excess 0.8 mmol/L; VBG HCO3 24 mmol/L (22-26); VBG pCO2 36 mmHg; VBG pH 7.43 (7.32-7.43); VBG pO2 53 mmHg
[2020-10-07 08:43] LABS: Venous Blood Gas Refer to POC result
[2020-10-07] MEDS: ondansetron HCL 4 MG/2 ML VIAL IVPUSH (09:59)
[2020-10-07] MEDS: Oxymetazoline HCl 0.05 % Nasal 15 ML SPRAY 2 SPRAY NOSTRIL-B (10:08)
--- NOTE | 2020-10-07 10:15 | PC.NURSE ---
Patient's O2 SAT's 80-90%, increased WOB, RR in the 20s. Blood clot noted to left nare, overnight RN reported patient was having bloody noses. Stat VBG completed. Hospitalist to bedside, patient transferred to ICU on CPap at this time.
--- NOTE | 2020-10-07 10:43 | HO.PM.IMPN ---
Subjective Subjective Date of Service: 10/07/20 <MONTSERRAT Mancera - Last Filed: 10/07/20 10:56> 10/07/20 <Joann Mir MD - Last Filed: 10/07/20 13:05> Interval History: called by nurse this morning that patient was reporting difficultly breathing and oxygen saturation was decreasing into the 80s on NRB went to see patient who appeared tachypnic, reporting shortness of breath. also reported bloody nose and had put tissue in left nare discussed with patient about intubation which he had initially declined and he was agreeable if necessary ICU attending was contacted and was agreeable to transfer patient to ICU for cpap. <MONTSERRAT Mancera - Last Filed: 10/07/20 10:56> ENT Ears, Nose, Mouth, and Throat: Reports epistaxis <MONTSERRAT Mancera - Last Filed: 10/07/20 10:56> Respiratory shortness of breath <MONTSERRAT Mancera - Last Filed: 10/07/20 10:56> Physical Exam Vital Signs: Vital Signs: Last Vital Signs Temp 101.1 F H 10/07/20 10:00 Pulse 78 10/07/20 10:00 Resp 30 H 10/07/20 10:00 BP 131/70 10/07/20 10:00 Pulse Ox 90 L 10/07/20 10:00 Body Mass Index 31.2 <MONTSERRAT Mancera - Last Filed: 10/07/20 10:56> Const: General: awake, ill appearing and tired appearing <MONTSERRAT Mancera - Last Filed: 10/07/20 10:56> Nutritional Appearance: overweight <MONTSERRAT Mancera - Last Filed: 10/07/20 10:56> Eyes: Pupils: Equal, round and reactive pupils present <MONTSERRAT Mancera Last Filed: 10/07/20 10:56> EOM: EOMs intact bilaterally <MONTSERRAT Mancera - Last Filed: 10/07/20 10:56> Resp: Effort & Inspection: respiratory distress and tachypneic <MONTSERRAT Mancera Last Filed: 10/07/20 10:56> Auscultation: clear to auscultation bilaterally <MONTSERRAT Mancera Last Filed: 10/07/20 10:56> Cardio: Jugular venous distension: no JVD <MONTSERRAT Mancera Last Filed: 10/07/20 10:56> Rate: regular rate <MONTSERRAT Mancera Last Filed: 10/07/20 10:56> Rhythm: regular rhythm <MONTSERRAT Mancera Last Filed: 10/07/20 10:56> Neuro: Cranial nerves: Yes Equal, round and reactive pupils present <MONTSERRAT Mancera Last Filed: 10/07/20 10:56> Extrem: Other: no leg edema <MONTSERRAT Mancera Last Filed: 10/07/20 10:56> Objective Data Current Medications Generic Name Dose Route Start Last Admin Trade Name Freq PRN Reason Stop Dose Admin Acetaminophen 650 mg 09/28/20 23:52 10/02/20 00:17 Acetaminophen 325 Mg Tablet PO 650 mg Q6H PRN Administration Pain, Mild (Pain Scale 1-3) Albuterol Sulfate 4 puff 09/28/20 23:56 Albuterol Sulfate 90 Mcg 8 Gm Inhaler INHALE Q2H PRN Shortness of Breath/Wheezing Ascorbic Acid 500 mg 10/05/20 21:00 10/07/20 08:02 Ascorbic Acid 500 Mg Tablet PO 500 mg BID VINH Administration Benzonatate 100 mg 09/28/20 23:55 10/02/20 09:13 Benzonatate 100 Mg Capsule PO 100 mg TID PRN Administration Cough Dexamethasone Sodium Phosphate 6 mg 10/06/20 09:05 10/07/20 08:02 Dexamethasone Sod Phosphate 4 Mg/Ml Vial IVPUSH 6 mg DAILY VINH Administration Enoxaparin Sodium 40 mg 09/28/20 23:45 10/06/20 20:44 Enoxaparin Sodium 40 Mg/0.4 Ml Syringe SUBCUT 40 mg BEDTIME VINH Administration Famotidine 20 mg 10/06/20 09:00 10/07/20 08:02 Famotidine 20 Mg Tablet PO 20 mg DAILY VINH Administration Melatonin 6 mg 09/28/20 23:52 10/06/20 20:44 Melatonin 3 Mg Tablet PO 6 mg BEDTIME PRN Administration Insomnia Ondansetron HCl 4 mg 10/03/20 08:18 10/07/20 09:59 Ondansetron Hcl 4 Mg/2 Ml Vial IVPUSH 4 mg Q8H PRN Administration Nausea and Vomiting Senna 17.2 mg 09/28/20 23:52 Sennosides 8.6 Mg Tablet PO BEDTIME PRN Constipation Sodium Chloride 3 ml 09/29/20 00:00 10/07/20 08:02 0.9 % Sodium Chloride Flush 3 Ml Syringe IVFLUSH 3 ml QSHIFT VINH Administration Sodium Chloride 1 spray 10/05/20 21:37 10/06/20 03:59 Sodium Chloride 0.65 % Nasal 44 Ml Sprbtl NOSTRIL-B 1 spray Q1H PRN Administration Nasal Congestion <MONTSERRAT Mancera - Last Filed: 10/07/20 10:56> Labs CBC & Chem 7: : 10/06/20 04:38 10/06/20 04:38 <MONTSERRAT Mancera - Last Filed: 10/07/20 10:56> Labs: Laboratory Results - last 24 hr 10/07/20 08:34 VBG pH 7.43 VBG pCO2 36 VBG pO2 53 VBG HCO3 24 VBG O2 Saturation 82.0 VBG Base Excess 0.8 <MONTSERRAT Mancera - Last Filed: 10/07/20 10:56> Microbiology Microbiology Results: Microbiology 10/01/20 09:02 Blood Culture - Final Blood - Venous No growth after 5 days. 10/01/20 09:09 Blood Culture - Final Blood - Venous No growth after 5 days. <MONTSERRAT Mancera - Last Filed: 10/07/20 10:56> Quality Stroke Does the patient have a stroke diagnosis?: No <MONTSERRAT Mancera - Last Filed: 10/07/20 10:56> VTE Prior VTE?: No <MONTSERRAT Mancera - Last Filed: 10/07/20 10:56> VTE Risk Level:: Medical - moderate - high <MONTSERRAT Mancera - Last Filed: 10/07/20 10:56> VTE Device Contraindication: Treatment Not Indicated <MONTSERRAT Mancera - Last Filed: 10/07/20 10:56> VTE Drug Contraindication: N/A - Med Ordered <MONTSERRAT Mancera - Last Filed: 10/07/20 10:56> Assessment and Plan (1) Pneumonia due to COVID-19 virus: Status: Acute <MONTSERRAT Mancera - Last Filed: 10/07/20 10:56> (2) Hypoxia: Status: Acute <MONTSERART Mancera - Last Filed: 10/07/20 10:56> Assessment and Plan: 69-year-old male with a past medical history of chronic back pain, history of COVID-19 positive in May of 2019; presented to the hospital with chief complaint of generalized weakness. Noted to have COVID-19 positive and hypoxia. Of note, patient mentioned that he was covid positive in 05/2019 however he then stated that the date was wrong and he was sick from what he thought was covid. Apparently he was sick in feb 2020 but was never formally diagnosed with covid 19. Acute hypoxic respiratory failure secondary to COVID-19 hypoxia persists, dropped into 80s on NRB. in respiratory distress this morning inflammatory markers have been trending up. has been unable to tolerate HFNC due to prior nasal septal defect d-dimer significantly elevated at 14k, VQ from 10/04 very low probability for PE -continue decadron day 10/30 -s/p treatment with remedesivir -vitamin C added at request of family -continue other supportive care -seen by pulmonary -seen by ID Transfer to ICU for CPAP/further management. Discussed with Dr. Smith. Thrombocytopenia -follow CBC Initially did not want to be intubated, today he is agreeable if that becomes neccessary Called alanna Ashton @ [phone] the HCP and updated him with status change. Full Code DVT pptx, Lovenox Attending: Dr. Mir <MONTSERRAT Mancera - Last Filed: 10/07/20 10:56>
--- NOTE | 2020-10-07 10:52 | PM.CCPN ---
Subjective Subjective Date of Service: 10/07/20 Interval History: ICU day 1 for acute hypoxic respiratory failure, COVID-19 ARDS 69-year-old gentleman, nonsmoker, with underlying history of chronic back pain and COVID-19 infection in May of 2019 admitted on 09/29/2020 with generalized weakness, dyspnea on exertion, and dry cough. Patient was noted to be mildly hypoxic with CT chest suggestive of underlying COVID-19 and positive COVID-19 serology. He has been admitted to general medical [facility] and started on systemic glucocorticoids and remdesivir. Patient has been evaluated by infectious disease service. His CT angiogram demonstrated no pulmonary emboli. His venous bilateral lower extremity Doppler showed no deep venous thrombosis. His perfusion scan showed segmental defect that is likely related to underlying prominent hilum. He was not able to tolerate high-flow secondary to discomfort with deviated septum. His hospital course was significant for progressive increasing FiO2 requirements and on 10/07/2020 his required initiation of CPAP support and transfer to intensive care unit. Critical Care Time (minutes): 60 Physical Exam Vital Signs: Vital Signs: Last Vital Signs Temp 101.1 F H 10/07/20 10:00 Pulse 78 10/07/20 10:00 Resp 30 H 10/07/20 10:00 BP 131/70 10/07/20 10:00 Pulse Ox 90 L 10/07/20 10:00 Body Mass Index 31.2 Const: General: no acute distress, alert and awake Eyes: Sclerae: sclerae normal EOM: EOMs intact bilaterally Neck: Neck: Yes no lymphadenopathy, Yes trachea midline and Yes supple Resp: Effort & Inspection: normal respiratory effort (On CPAP) and no respiratory distress Auscultation: crackles (Diffuse bilateral) Cardio: Rate: regular rate Rhythm: regular rhythm Heart sounds: no gallops, no murmurs and no rubs GI: Palpation (GI): Soft to palpation and Other GI palpation findings present ( Nontender) Auscultation: normal bowel sounds Extrem: General: No clubbing, No cyanosis and Yes pedal edema (Trace bilateral) Objective Data Labs CBC & Chem 7: 10/06/20 04:38 10/06/20 04:38 Labs: Laboratory Results - last 24 hr 10/07/20 08:34 VBG pH 7.43 VBG pCO2 36 VBG pO2 53 VBG HCO3 24 VBG O2 Saturation 82.0 VBG Base Excess 0.8 Microbiology Microbiology Results: Microbiology 10/01/20 09:02 Blood - Venous Blood Culture - Final No growth after 5 days. 10/01/20 09:09 Blood - Venous Blood Culture - Final No growth after 5 days. Progress Note: A&P Assessment and plan (1) Acute respiratory failure with hypoxia: Status: Acute Assessment and Plan: Assessment: 69-year-old gentleman admitted with acute hypoxic respiratory failure secondary to COVID-19 ARDS, now requiring CPAP support. Plan: Neuro: No acute issues. Cardiac: No acute issues. Pulmonary: Acute hypoxic respiratory failure secondary to COVID-19 ARDS, now requiring CPAP support. Continue to titrate off as tolerated. Renal: No acute issues. Endo: No acute issues. GI: No acute issues. ID: Status post remdesivir. Continues on dexamethasone. Infectious Disease service care appreciated. Heme/Onc: No acute issues. Psych: No acute issues. Miscellaneous: No acute issues. Prophylaxis: Lovenox, famotidine Diet: Regular Critical care time spent: 60 minutes (2) Acute respiratory distress syndrome (ARDS) due to COVID-19 virus: Status: Acute Quality Stroke Does the patient have a stroke diagnosis?: No VTE Prior VTE?: No VTE Risk Level:: Medical - moderate - high VTE Device Contraindication: Treatment Not Indicated VTE Drug Contraindication: N/A - Med Ordered
--- NOTE | 2020-10-07 11:53 | PM.CCN ---
Critical Care Event Note Summary Date of Service: 10/07/20 Code activated: No Narrative: Patient requested intubation and ventilatory support, ifhis oxygen requirements exceed what noninvasive positive pressure ventilation can provide. Code status changed to full code. Critical Care Time (minutes): 0
--- NOTE | 2020-10-07 16:48 | PC.NURSE ---
patient alert and oriented upon transfer from [facility] to ICU about 10 am, and patient stated with two witnesses that he would prefer to be intubated if necessary; discussed with md and new order that patient is now full code.
--- NOTE | 2020-10-07 19:39 | PC.NURSE ---
Assumed care at 10:30 am. Patient alert, anxious, oriented x4. Patient, upon arrival, verbalized interest in being full code after discussion of what being intubated would entail, in witness of two RNs, discussed with MD and with nursing welding supervisor; MOLST form remains in chart, MD wrote order for full code, MOLST is now obsolete. Patient was initially on CPAP 14 and 100%, which was tolerated for a few hours, then as of 14:22, patient was exhibiting accessory muscle use/abdominal muscle use, on top of tachypnea as ongoing issue: RR 29-32, and discussed with MD in light of patient's reaction to opioids; new order to place patient on BiPap for more support, and RT came and placed patient on 18/8 with 60% fiO2; which patient responded well to, but does exhibit tidal volumes about 900-1300 ml, and minute volumes about 20-22, and RR about 28-32, and ok per RT. SpO2 around 88-92%; but when mask is removed for an instant to deliver ice chips, patient's SpO2 drops as low as 72%, which comes back up with re-application of mask. Work of breathing improved, overall. LS dim throughout; occasional dry nonproductive cough. When patient arrived, afrin was administered with excellent effect, and patient reported improved patency of nares. Patient with hunger reported, discussed with MD, ok to eat ice chips; also; plan was to use nasal bipap, which RT came and demonstrated that we do not currently have supplies for this; or patient will need possible TPN or feeding tube moving forward depending on his oxygen requirements per MD; and a nutrition consult was ordered to facilitate assessment. Last BM reported as 10/07. Patient on arrival per report had not been voiding lately, and discussed with MD and new order to place acosta, and 16 Fr acosta was placed with some difficulty and immediately 300 ccsc of tea colored/pink-tinged urine was released, and then patient continued to urinated a total of about 750 ccs this shift. Skin issues include a reddened bridge of his nose, to which an allewyn was applied; and external reddened hemorrhoids. Patient's son came in and obtained patient's laptop bag and two laptops and belongings list was updated,.
[2020-10-07] MEDS: Enoxaparin Sodium 40 MG/0.4 ML SYRINGE SUBCUT (20:29)
[2020-10-07] MEDS: Acetaminophen 325 MG TABLET 650 MG PO (22:35)
[2020-10-07] MEDS: Melatonin 3 MG TABLET 6 MG PO (22:37)
[2020-10-08] VITALS (32 sets, daily range): BP systolic 100–140; BP diastolic 44–74; PULSE 57–104; RESP 13–92; TEMP 37.4–39; O2SAT 86–100; BMI 28.0
[2020-10-08] MEDS: 0.9 % Sodium Chloride Flush 3 ML SYRINGE IVFLUSH ×4 (01:02→23:43)
--- NOTE | 2020-10-08 03:35 | PC.NURSE ---
Assumed care of pt at 1900. Pt lethargic but arousable and following commands. Bipap facemask on at settings of 18/8 and 80%. O2 sats 87-91%. Bridge of nose is red and pt states he has pain in this area. Bipap taken on for brief periods and NRB mask applied at these times. Pt will desat to 70's and at one point, 68% when mask was off. Pt takes a few ice chips and sips of water when bipap off. Tylenol and melatonin given for pain and sleep. Pt had difficulty swallowing as his throat was dry. He coughed up dry bloody sputum. Mouth care given and bipap re-applied. O2 sats came up fairly quick with deep breathing and relaxation methods. Pt did well with deep breathing. Repositioned pt q2h. He helps and moves well. Back care given. Vitals are stable. Temp low grade 99.9 core. Monitor shows NSR, 60's-70's, occ PVC noted.
[2020-10-08 05:23] LABS: VBG Base Excess 2.5 mmol/L; VBG HCO3 26 mmol/L (22-26); VBG pCO2 38 mmHg; VBG pH 7.44 (7.32-7.43); VBG pO2 48 mmHg
[2020-10-08 05:40] LABS: Basophils Percent Auto 0.2 % (0-2); Eosinophils Percent Auto 0.2 % (0-4); Hematocrit 43.1 % (42-52); Hemoglobin 14.8 g/dl (14.0-18.0); Imm Gran Abs Auto 0.64 X10*3/uL (0.00-0.03); Imm Gran Pct Auto 3.5 % (0.0-0.4); Lymphocytes Absolute Auto 0.6 X10*3/uL (1.2-4.9); Lymphocytes Percent Auto 3.5 % (20-40); MANUAL DIFF FLAG SCAN; Mean Corpuscular HGB Conc 34.3 g/dl (31.0-36.0); Mean Corpuscular Hemoglobin 29.5 pg (27.0-33.0); Mean Corpuscular Volume 85.9 fL (80-98); Mean Platelet Volume 9.5 fL (9.4-12.4); Monocytes Absolute Auto 0.5 X10*3/uL (0.1-1.2); Monocytes Percent Auto 2.5 % (2-11); Neutrophils Absolute Auto 16.6 X10*3/uL (2.0-8.3); Neutrophils Percent Auto 90.1 % (45-73); Platelet Count 104 X10*3/uL (160-400); Red Blood Count 5.02 X10*6/uL (4.60-5.80); Red Cell Distribution Width 12.1 % (11.0-16.0); SCAN SMEAR FLAG 1; White Blood Count 18.4 X10*3/uL (4.8-10.8)
[2020-10-08 06:05] LABS: Venous Blood Gas Refer to POC result
[2020-10-08 06:11] LABS: SLIDE REVIEW VERIFIED
[2020-10-08 06:17] LABS: Alanine Aminotransferase 23 U/L (0-40); Albumin Level 2.9 g/dL (3.5-5.0); Alkaline Phosphatase 75 U/L (39-117); Anion Gap 14 (12-20); Aspartate Amino Transferase 24 U/L (5-37); Bilirubin Total 1.5 mg/dL (0.0-1.0); Blood Urea Nitrogen 44 mg/dL (9-16); Calcium 8.4 mg/dL (8.4-10.2); Carbon Dioxide 25 mmol/L (22-29); Chloride 105 mmol/L (96-108); Creatinine Clr Calc Pharmacy 81.1; Estimated Glomerular Filt Rate > 60; Glucose Random 133 mg/dL (60-115); Magnesium 2.7 mg/dL (1.6-2.6); Phosphorus 4.7 mg/dL (2.7-4.5); Potassium 4.9 mmol/L (3.3-5.1); Sodium 139 mmol/L (135-145); Total Protein 5.8 g/dL (6.5-8.0)
--- NOTE | 2020-10-08 10:40 | MHC.CLN ---
Addendum entered by Gladis Hodge, DESIREE 10/08/20 13:13: PT TO START PPN PER MD RECOMMEND D10 AA4.25 AT 60ML/HR TO PROVIDE 734KCALS, 61G PROTEIN DISCUSSED WITH PHARMACY, REPLETE LYTES NEEDED Original Note: RE: CONSULT SEE CLINICAL NUTRITION ASSESSMENT
[2020-10-08] MEDS: Heparin Sodium,Porcine 5,000 UNIT/ML VIAL 5000 UNIT SUBCUT ×2 (10:57→17:33)
[2020-10-08] MEDS: Oxymetazoline HCl 0.05 % Nasal 15 ML SPRAY 1 SPRAY NOSTRIL-B (13:00)
--- NOTE | 2020-10-08 13:07 | P.PNCC_ITS ---
Subjective Subjective Date of Service: 10/08/20 Interval History: Mr. Cano was transferred down to ICU yesterday with hypoxemic respiratory failure secondary to bilat COVID pneumonia. 69-year-old male with past medical history of chronic back pain. The patient lives in [place]. He was symptomatic with what he thinks was COVID in May of 2019, but he was never tested, nor was he hospitalized. He has not had the COVID vaccine. At the end of last month, he drove here to [place] to attend his father?s . Had not been feeling well since then. Very tired. Presented to the [place] [facility] ED on September 28 c/o dyspnea on exertion and dry cough. Denied fevers or diarrhea. In the ED, the patient looked exhausted and dehydrated. Sat was 89% on room air. COVID positive, with cycle threshold 17. DDimer was 2100. CXR had questionable subtle infiltrates. CTPA chest showed mild-moderate COVID infiltrates. By my reading, PA size was borderline enlarged, RV is at least top normal, and RA is enlarged. The patient was admitted to Medicine and treated with Decadron and Zithromax x 3 days. Was also given a 5 day course of remdesivir. Venous duplex on September 29 was negative for DVT. His FiO2 escalated rapidly. [place] 03[place] [id number]. He was sent for perfusion scan which showed a segmental defect thought likely related to underlying prominent hilum. He was not able to tolerate high-flow secondary to discomfort with deviated septum. [place] [id number]. BNP was only 47. PCT was 0.1. Yesterday he was started on CPAP, and therefore transferred to ICU. Initial FiO2 was 60% which then escalated to 80%. His work of breathing increased yesterday afternoon and CPAP was escalated to BiPAP. On exam this morning, he is fully awake and appropriate, talks in short sentences. Tachypneic but nontoxic looking. HR 80, BP 123/67, RR 34 on BiPAP 18/8/80%, with Vt 1000-1300cc, Ve 40L, SpO2 91%. VBG this morning showed 7.44/38/+2. Work of breathing is mild to moderately increased, mainly on the basis of the respiratory rate. [id number]?. Tmax 101.1 yest morning. No JVD at 30 degrees. Trace accessory muscle use. Auscultation of the chest shows low- pitched clear breath sounds, with normal expiratory phase. Unable to hear heart tones. The rhythm is regular sinus on the monitor. Abdomen is benign with good bowel sounds. There is no peripheral edema. Neuro exam is nonfocal and fully intact. LABORATORY DATA: As below. Notably, white count is bumped to 18 this morning. BUN/creatinine are up to 44/1.0. Phos 4.7. IMPRESSION: 1. Bilateral COVID pneumonia with ARDS. Upped his Decadron to Solu-Medrol 80 mg bid. He?s had a 5-day course of remdesivir. We?re also going to try to get ivermectin into him. They?re small 3 mg tablets, 10 a day (30 mg daily x 5 days), as best he can swallow them. Also starting him on vitamin-D, aspirin, and thiamine. (I would also give him vitamin C and melatonin if he were able to take those pills.) 2 Acute hypoxemic respiratory failure. He?s on the edge, and we?re pushing the envelope in not intubating at this point. I?ve discussed that at length with the patient?s son Poli, and he is in agreement. I upped his PEEP to 10 and dropped his IPAP to 16 in order to decrease his tidal volumes. We?ll also start him on low-dose fentanyl infusion to control his respiratory rate. 3. Acute kidney injury. Probably dehydrated. We?ll give him a bolus of LR, and also start him on PPN. 4. Markedly elevated D-dimer. Al recheck a duplex scan, and repeat his troponin and BNP (surrogate screening tests for PE). For now, continuing with heparin 5000 units tid for DVT prophylaxis. 5. ID: White count is elevated, with low-grade temperature. We?ll start him on doxycycline. 6. Thrombocytopenia: ? Chronic. Nothing to do. 7. Nutrition: Starting PPN. If/when he gets intubated, we?ll start tube feeds. If his oxygenation improves a little bit, we might be able to get a Kaofeed tube in him while he?s on BiPAP. Had a long telephone conference call this morning with the patient's daughter HARDIK in [place] ([phone]) and son Poli in [place], [place] ([phone]). Discussed his course, current condition, and therapeutic options, including ivermectin. We discussed prognosis, mechanical ventilation, and trying to get of a Kaofeed tube in for giving meds. Spoke again later with Poli about the risk of not intubating now, and further about ivermectin. Critical care time (including full chart review, and hospital course summary): 110+ minutes Critical Care Time (minutes): 120 Physical Exam Vital Signs: Vital Signs: Last Vital Signs Temp 101.5 F H 10/08/20 13:00 Pulse 97 10/08/20 13:00 Resp 35 H 10/08/20 13:00 BP 140/66 H 10/08/20 13:00 Pulse Ox 94 10/08/20 13:00 Body Mass Index 28.0 Objective Data Labs CBC & Chem 7: 10/08/20 05:17 10/08/20 05:17 Labs: Laboratory Results - last 24 hr 10/08/20 10/08/20 10/08/20 05:15 05:17 05:17 WBC 18.4 H RBC 5.02 Hgb 14.8 Hct 43.1 MCV 85.9 MCH 29.5 MCHC 34.3 RDW 12.1 Plt Count 104 L MPV 9.5 Immature Gran % (Auto) 3.5 H Neut % (Auto) 90.1 H Lymph % (Auto) 3.5 L [place] % (Auto) 2.5 Eos % (Auto) 0.2 Baso % (Auto) 0.2 Lymph # (Auto) 0.6 L [place] # (Auto) 0.5 Eos # (Auto) 0.0 Baso # (Auto) 0.0 Abs Immat Gran (auto) 0.64 H Absolute Neuts (auto) 16.6 H Absolute Nucleated RBC 0.000 Nucleated RBC % (auto) 0.0 Smear Tech's Comments VERIFIED VBG pH 7.44 H VBG pCO2 38 VBG pO2 48 VBG HCO3 26 VBG O2 Saturation 77.0 VBG Base Excess 2.5 Sodium 139 Potassium 4.9 Chloride 105 Carbon Dioxide 25 Anion Gap 14 BUN 44 H Creatinine 1.08 Estim Creat Clear Calc 81.1 Estimated GFR > 60 Random Glucose 133 H Calcium 8.4 Phosphorus 4.7 H Magnesium 2.7 H Total Bilirubin 1.5 H AST 24 ALT 23 Alkaline Phosphatase 75 Total Protein 5.8 L Albumin 2.9 L Microbiology Microbiology Results: Microbiology 10/01/20 09:02 Blood - Venous Blood Culture - Final No growth after 5 days. 10/01/20 09:09 Blood - Venous Blood Culture - Final No growth after 5 days. Quality Stroke Does the patient have a stroke diagnosis?: No VTE Prior VTE?: No VTE Risk Level:: Medical - moderate - high VTE Device Contraindication: Treatment Not Indicated VTE Drug Contraindication: N/A - Med Ordered Critical Care Time Critical Care Time (minutes): 120
[2020-10-08] MEDS: Doxycycline Hyclate 100 MG in 0.9 % Sodium Chloride 250 ML 166.67 MG IV ×2 (13:30→21:44)
[2020-10-08] MEDS: methylPREDNISolone Sod Succ 125 MG/2 ML VIAL 80 MG IVPUSH ×2 (14:05→21:43)
[2020-10-08] MEDS: Cholecalciferol (Vitamin D3) 25 MCG TABLET 50 MCG PO (14:05)
[2020-10-08] MEDS: Acetaminophen 325 MG TABLET 650 MG PO (14:05)
[2020-10-08] MEDS: Famotidine/PF 20 MG/2 ML VIAL IVPUSH (14:06)
[2020-10-08] MEDS: Aspirin 81 MG TAB.CHEW PO (14:06)
[2020-10-08] MEDS: Lactated Ringers 500 ML IV (14:08)
[2020-10-08] MEDS: fentaNYL citrate/NS 1,000 MCG/100 ML PLAST..BAG 1 MCG IVCONT (14:18)
--- NOTE | 2020-10-08 14:50 | MHC.CM.PN ---
Pt residing in [place] and in [place] for family matters: COVID + requiring hi flow O2: Pt able to complete a HCP naming his son Poli as his agent. Copies in chart and scanned into [employer]. CM to follow. Pt originally to d/c to home when medically stable.
[2020-10-08] MEDS: Thiamine HCL 200 MG/2 ML VIAL IVPUSH ×2 (16:30→21:43)
--- NOTE | 2020-10-08 20:15 | PC.NURSE ---
Assumed care at 0700. Patient alert and oriented x4; anxious. Patient was provided with Healthcare proxy form after discussion with social work and HCP was signed indicating his son Poli as HCP. Patient was able to be titrated on BIpap by respiratory; he was taking tidal volumes about 900ml-1200 ml with minute volumes about 20, and respiratory rates around 20-42; MD aware, and settings were titrated by MD and RT to 14/10; and then onto high flow and nonrebreather; with 100% and 60 LPM as well as 100% NRB. Patient started on fentanyl gtt low dose per MD for work of breathing/tachypnea. Patiet febrile, Tmax was 102.4, tylenol with GOOD effect, down to 100.8. Doxycycline started. LR bolus of 500 ccs given. Patient asks for PRN afrin, discussed with MD and new PRN order started. This facilitated the taking of PO medications and Ivermectin was successfully begun. Patient was able to take PO applesauce, applejuice, ensure, and his medications. Patient was able to coordinate taking off NRB to administer glassess of liquids. After discussion with MD and bull fiddle player, patient was started on TPN as well.
--- NOTE | 2020-10-08 21:35 | P.PCNCC_ITS ---
Procedures Date of Service Date of Service: 10/08/20 Central Line Placement Verbal consent was obtained from the patient. Risk and benefits were explained in detailed. A quick time-out was made for clarification and proper patient identification, patient was positioned, landmarks were identified, US used to locate a large compressible IJ. The left neck was widely prepped and draped in a full sterile fashion. Ultrasound was used to locate again the left IJ, the vein was cannulated on the 1st pass with an 18 gauge thin needle, dark nonpulsatile blood return was obtained. The wire was threaded, a small incision was made at its base and dilator inserted. A triple-lumen central venous cathet er was advanced into the vein up to the hub without problems, wired was removed. Ports had good blood return and flushed x3. The catheter was secured with 3 sutures at 3 sites, a Biopatch and dry sterile dressing were applied.Post procedure chest x-ray showed the line to be in good position without pneumothorax. No bleeding or complications noted.: Consent for Procedure: Elective - informed consent obtained Time out performed: Yes Sterile Technique Used: Yes Patient placed on monitor/pulse ox: Yes MD prep: mask, gown and gloves Central line prep: Chlorhexidine scrub Local anesthesia used: lidocaine 1% Amount of anesthesia used (ml): 5 Ultrasound used for placement: Yes Central line lumen inserted: triple Post procedure: sutured in place, good blood return, all ports aspirated, flushed, capped and sterile dressing applied Post procedure x-ray: tip of catheter in good position and no pneumothorax seen Patient tolerated procedure: well and no complications
[2020-10-09] VITALS (35 sets, daily range): BP systolic 78–174; BP diastolic 50–88; PULSE 60–147; RESP 14–44; TEMP 37.1–38.1; O2SAT 81–94; BMI 27.7
[2020-10-09] MEDS: Heparin Sodium,Porcine 5,000 UNIT/ML VIAL 5000 UNIT SUBCUT ×3 (02:14→17:23)
[2020-10-09 06:01] LABS: VBG Base Excess 2.7 mmol/L; VBG HCO3 24 mmol/L (22-26); VBG pCO2 30 mmHg; VBG pH 7.51 (7.32-7.43); VBG pO2 59 mmHg
[2020-10-09 06:01] LABS: Venous Blood Gas Refer to POC result
[2020-10-09 06:05] LABS: Hematocrit 41.3 % (42-52); Hemoglobin 13.7 g/dl (14.0-18.0); Mean Corpuscular HGB Conc 33.2 g/dl (31.0-36.0); Mean Corpuscular Hemoglobin 28.7 pg (27.0-33.0); Mean Corpuscular Volume 86.6 fL (80-98); Mean Platelet Volume 9.7 fL (9.4-12.4); Platelet Count 100 X10*3/uL (160-400); Red Blood Count 4.77 X10*6/uL (4.60-5.80); Red Cell Distribution Width 11.9 % (11.0-16.0); White Blood Count 20.1 X10*3/uL (4.8-10.8)
[2020-10-09 06:30] LABS: Lactic Acid 2.3 mmol/L (0.5-2.0)
[2020-10-09 06:43] LABS: Alanine Aminotransferase 28 U/L (0-40); Albumin Level 2.6 g/dL (3.5-5.0); Alkaline Phosphatase 77 U/L (39-117); Anion Gap 11 (12-20); Aspartate Amino Transferase 28 U/L (5-37); Bilirubin Total 0.9 mg/dL (0.0-1.0); Blood Urea Nitrogen 40 mg/dL (9-16); C Reactive Protein 15.55 mg/dL (< or = 0.50); Calcium 7.8 mg/dL (8.4-10.2); Carbon Dioxide 27 mmol/L (22-29); Chloride 103 mmol/L (96-108); Creatinine Clr Calc Pharmacy 86.2; Estimated Glomerular Filt Rate > 60; Glucose Random 250 mg/dL (60-115); Phosphorus 3.3 mg/dL (2.7-4.5); Potassium 4.8 mmol/L (3.3-5.1); Sodium 136 mmol/L (135-145); Total Protein 5.6 g/dL (6.5-8.0)
[2020-10-09 06:46] LABS: B Type Natriuretic Peptide 42 pg/mL (<100)
[2020-10-09 07:08] LABS: D Dimer 32030 NG/ML
[2020-10-09 07:46] LABS: Procalcitonin 0.11 ng/mL
[2020-10-09 07:56] LABS: Reflex Lactate? Lactic Acid Added
[2020-10-09 08:20] LABS: Ferritin 3616 ng/mL (20-250)
[2020-10-09 08:34] LABS: Magnesium 2.5 mg/dL (1.6-2.6)
[2020-10-09] MEDS: Doxycycline Hyclate 100 MG in 0.9 % Sodium Chloride 250 ML 166.67 MG IV ×2 (10:04→21:57)
[2020-10-09] MEDS: Thiamine HCL 200 MG/2 ML VIAL IVPUSH ×2 (10:05→22:00)
[2020-10-09] MEDS: methylPREDNISolone Sod Succ 125 MG/2 ML VIAL 80 MG IVPUSH ×2 (10:05→21:59)
[2020-10-09] MEDS: Famotidine/PF 20 MG/2 ML VIAL IVPUSH (10:05)
--- NOTE | 2020-10-09 10:32 | MHC.CLN ---
F/U PT HAS CENTRAL LINE; TO START TPN PT RECEIVED PPN LAST EVENING D10AA4.25 AT 60ML/HR PROVIDED 734KCALS, 61G PROTEIN RECOMMEND SWITCHING TO D15AA5% AT 75ML/HR TO PROVIDE 1278KCALS, 90G PROTEIN (1.05G/KG BASED ON IBW); DISCUSSED WITH MD AND PHARMACY REPLETE LYTES NEEDED, CHECK TRIGS FOR POSSIBLE LIPIDS TOMORROW
[2020-10-09 11:08] LABS: ~Lactic Acid-LAB USE ONLY 2.4 mmol/L (0.5-2.0)
[2020-10-09 11:19] LABS: Triglycerides 113 mg/dL
[2020-10-09] MEDS: EPINEPHrine 1 MG/10 ML SYRINGE IVPUSH (12:24)
[2020-10-09] MEDS: propofoL 1,000 MG/100 ML VIAL 11.75 MG IVCONT (12:30)
[2020-10-09] MEDS: Midazolam HCl/PF 2 MG/2 ML VIAL IVPUSH (12:30)
[2020-10-09 12:39] LABS: Reflex Lactate? 2 Y
--- NOTE | 2020-10-09 12:55 | W.PM.CCHP ---
Procedures Date of Service Date of Service: 10/09/20 Intubation Intubation Comments: PROCEDURE NOTE: Emergent tracheal intubation. INDICATIONS: Bilateral COVID pneumonia, with respiratory and incipient ventilatory failure. Anesthesia: Versed 2mg, ketamine 50 mg, Zemuron 70 mg, epinephrine 30ug. PROCEDURE: The patient was preoxygenated on BiPAP 100%. He was given Versed 2mg, followed 1 min later by the rest of the above regimen. Tracheal intubation was accomplished with a #3 Glidescope, on the 1st attempt, atraumatic, with no difficulty. There was immediate good quantitative end-tidal CO2, about 28mm. Kirill SpO2 was 82%. No bradycardia or hypotension occurred. The endotracheal tube was secured at 27 cm at the upper tooth. The patient soniya the procedure well with no complications. CXR showed the endotracheal tube about 4 cm above the yenifer (I disagree with the radiologist). The tube was advanced 1 cm.
--- NOTE | 2020-10-09 12:56 | PM.CCPN ---
Subjective Subjective Date of Service: 10/10/20 Interval History: Mr. Cano was transferred down to ICU on October 07 with hypoxemic respiratory failure secondary to bilat COVID pneumonia. 69-year-old male with past medical history of chronic back pain. The patient lives in [place]. He was symptomatic with what he thinks was COVID in May of 2019, but he was never tested, nor was he hospitalized. He has not had the COVID vaccine. At the end of August, he drove here to [place] to attend his father?s . Had not been feeling well since then. Very tired. Presented to the [place] ED on September 28 c/o dyspnea on exertion and dry cough. Denied fevers or diarrhea. In the ED, the Sat was 89% on room air. COVID positive, with cycle threshold 17. DDimer was 2100. CXR had questionable subtle infiltrates. CTPA chest showed mild-moderate COVID infiltrates. By my reading, PA size was borderline enlarged, RV at least top normal, and RA enlarged. The patient was admitted to Medicine and treated with Decadron, plus Zithromax x 3 days. Was also given a 5 day course of remdesivir. Venous duplex on September 29 was negative for DVT. His FiO2 escalated rapidly. On [place] 03, [place] [address]. He was sent for perfusion scan which showed a segmental defect thought likely related to underlying prominent hilum. He was not able to tolerate high-flow secondary to deviated septum. [place] 10[place]04[place] [address]. BNP was only 47. PCT was 0.1. On October 07, he required escalation to CPAP, and was therefore transferred to ICU. Initial FiO2 was 60% which then escalated to 80%. His work of breathing increased and CPAP was escalated to BiPAP. Yesterday morning was requiring CPAP 80%. In the afternoon they were able to transition him to non-rebreather face mask plus 6 L nasal cannula. However, last night, he required escalation back to CPAP, requiring up to 100% FiO2. This morning not long after shift change, he aspirated while trying to drink. He was put back on CPAP. Respiratory rate later this morning was up to the 40s, even on fentanyl infusion, with sat low 80s on CPAP 100%, with incipient gross ventilatory failure. He was therefore ?electively? intubated (see separate note). Currently sedated on propofol and fentanyl. See vital signs below. Regular sinus rhythm. Sat 91% on FiO2 90%/+10. Peak inspiratory pressure with tidal volume 500 cc is running about 29 cm. Tmax 101.5 yesterday. Been afebrile since doxycycline was started yesterday. No JVD at 30 degrees. Abdomen is benign with good bowel sounds. There is no peripheral edema. Neuro exam is nonfocal and fully intact. LABORATORY DATA: As below. Notably, white count is bumped to 20 this morning after upping the steroids yesterday. BUN/creatinine are down to 40/0.9. Phos is down to 3.3. Albumin is down to 2.6. Troponin 30, BNP 42. Lactic acid is 2.3. D-dimer is down to 32,000, ferritin is up to 3616, CRP is steady, prolactin continues low. Chest x-ray post intubation shows moderate bilateral infiltrates. Duplex scan yesterday showed a small calf vein DVT in a branch of the right peroneal vein. IMPRESSION: 1. Bilateral COVID pneumonia with ARDS. Now on Solu-Medrol 80 mg bid and a 5 day course of ivermectin. He?s had a 5-day course of remdesivir. Also on vitamin-B, vit C, Vit D, thiamine, melatonin, and ASA. 2 Acute hypoxemic respiratory failure. Required intubation. He?s now in for the long haul. 3. Acute kidney injury. Improved post hydration yesterday. 4. Markedly elevated D-dimer. Associated with calf DVT. Cannot rule out other micro pulmonary VTE. Normal troponin and BNP rule out significant PE, for all intents and purposes. For now, continuing with heparin 5000 units tid for DVT prophylaxis, plus aspirin. 5. ID: White count elevated, with low-grade temperature. Started doxycycline yesterday, now afebrile, for whatever it is worth. Still no suggestion that he has bacterial sepsis. I have drawn blood cultures however. 6. Thrombocytopenia: ? Chronic. Nothing to do. 7. Nutrition: At least mild if not moderate protein calorie malnutrition. Starting tube feeds. Had a long telephone conference call this afternoon the patient's daughter HARDIK in [place] ([phone]), son Poli in [place], [place] ([phone]), and another daughter. Discussed this morning?s events, expected course, prognosis, and therapeutic options. Survivability likely less than 50%. Expect mechanical ventilation at least 2 weeks, possibly tracheostomy. Critical care time (excluding procedures): 75+ minutes Critical Care Time (minutes): 75 Physical Exam Vital Signs: Vital Signs: Last Vital Signs Temp 100.0 F 10/09/20 12:00 Pulse 120 H 10/09/20 12:00 Resp 14 10/09/20 12:00 BP 161/83 H 10/09/20 12:00 Pulse Ox 90 L 10/09/20 12:00 Body Mass Index 27.7 Objective Data Labs CBC & Chem 7: 10/09/20 05:45 10/09/20 05:45 Labs: Laboratory Results - last 24 hr 10/09/20 10/09/20 10/09/20 05:45 05:45 05:45 WBC 20.1 H RBC 4.77 Hgb 13.7 L Hct 41.3 L MCV 86.6 MCH 28.7 MCHC 33.2 RDW 11.9 Plt Count 100 L MPV 9.7 Absolute Nucleated RBC 0.000 Nucleated RBC % (auto) 0.0 D-Dimer 62167 VBG pH VBG pCO2 VBG pO2 VBG HCO3 VBG O2 Saturation VBG Base Excess Sodium 136 Potassium 4.8 Chloride 103 Carbon Dioxide 27 Anion Gap 11 L BUN 40 H Creatinine 0.94 Estim Creat Clear Calc 86.2 Estimated GFR > 60 Random Glucose 250 H D Lactic Acid Lactic Acid Fup @ 2Hr Calcium 7.8 L D Phosphorus 3.3 Magnesium 2.5 Ferritin 3616 H Total Bilirubin 0.9 AST 28 ALT 28 Alkaline Phosphatase 77 Troponin I High Sens C-Reactive Protein 15.55 H B-Natriuretic Peptide Total Protein 5.6 L Albumin 2.6 L Triglycerides 113 Procalcitonin 10/09/20 10/09/20 10/09/20 05:45 05:45 05:45 WBC RBC Hgb Hct MCV MCH MCHC RDW Plt Count MPV Absolute Nucleated RBC Nucleated RBC % (auto) D-Dimer VBG pH VBG pCO2 VBG pO2 VBG HCO3 VBG O2 Saturation VBG Base Excess Sodium Potassium Chloride Carbon Dioxide Anion Gap BUN Creatinine Estim Creat Clear Calc Estimated GFR Random Glucose Lactic Acid 2.3 H* Lactic Acid Fup @ 2Hr Calcium Phosphorus Magnesium Ferritin Total Bilirubin AST ALT Alkaline Phosphatase Troponin I High Sens 30.0 D C-Reactive Protein B-Natriuretic Peptide 42 Total Protein Albumin Triglycerides Procalcitonin 0.11 10/09/20 10/09/20 05:53 10:35 WBC RBC Hgb Hct MCV MCH MCHC RDW Plt Count MPV Absolute Nucleated RBC Nucleated RBC % (auto) D-Dimer VBG pH 7.51 H VBG pCO2 30 VBG pO2 59 VBG HCO3 24 VBG O2 Saturation TNP VBG Base Excess 2.7 Sodium Potassium Chloride Carbon Dioxide Anion Gap BUN Creatinine Estim Creat Clear Calc Estimated GFR Random Glucose Lactic Acid Lactic Acid Fup @ 2Hr 2.4 H* Calcium Phosphorus Magnesium Ferritin Total Bilirubin AST ALT Alkaline Phosphatase Troponin I High Sens C-Reactive Protein B-Natriuretic Peptide Total Protein Albumin Triglycerides Procalcitonin Microbiology Microbiology Results: Microbiology 10/01/20 09:02 Blood - Venous Blood Culture - Final No growth after 5 days. 10/01/20 09:09 Blood - Venous Blood Culture - Final No growth after 5 days. Quality Stroke Does the patient have a stroke diagnosis?: No VTE Prior VTE?: No VTE Risk Level:: Medical - moderate - high VTE Device Contraindication: Treatment Not Indicated VTE Drug Contraindication: N/A - Med Ordered Critical Care Time Critical Care Time (minutes): 90
--- NOTE | 2020-10-09 13:12 | PC.NURSE ---
Pt tachypneic this morning RR into to 40's, able to be temporarly verbally consoled with rates down to 30s, states SOB, Vt 900-1100ml on CPAP 12 FiO2 100%, pt aspirated on a small amt apple juice, SaO2 down to 50% per RT. Fentanyl drip increased to 50mcg/hr with minimal effect. SaO2 back up to 92%, however, RR back up to 40s and SaO2 dropped down to 81%. Pt ultimately ended up getting intubated at 1215 #7 ET tube 27cm at incisors, breath sounds auscultated bilaterally, OG tube in place.
[2020-10-09] MEDS: Ketamine HCl/NS 50 MG/5 ML SYRINGE IVPUSH (13:23)
[2020-10-09] MEDS: Rocuronium Bromide 50 MG/5 ML VIAL 100 MG IVPUSH (13:23)
[2020-10-09] MEDS: Ascorbic Acid 500 MG TABLET 1000 MG PO (13:31)
[2020-10-09 13:46] LABS: Cancel Lactic Acid Canceled
[2020-10-09 13:52] LABS: VBG Base Excess -3.3 mmol/L; VBG HCO3 28 mmol/L (22-26); VBG pCO2 80 mmHg; VBG pH 7.14 (7.32-7.43); VBG pO2 124 mmHg
[2020-10-09 13:53] LABS: Venous Blood Gas Refer to POC result
--- NOTE | 2020-10-09 14:52 | MHC.CLN ---
RE: CONSULT PT IS NOW INTUBATED AND SEDATED RECOMMEND PROMOTE AT MAX GOAL RATE 85ML/HR WITH 240ML Q SHIFT FREE WATER FLUSHES TO PROVIDE 2040KCALS (2738KCALS WITH SEDATION; 28KCALS/KG), 128G PROTEIN (1.3G/KG), 2431ML TOTAL WATER FROM FORMULA AND FLUSHES (24.5ML/KG) START FORMULA AT 20ML AND INCREASE BY 10ML Q 4 HRS UNTIL MAX GOAL OF 85ML IS ACHIEVED MONITOR TOLERANCE, RESIDUALS AND LYTES
--- NOTE | 2020-10-09 15:04 | MHC.CM.PN ---
Pt in ICU with COVID. Now requiring intubation: HCP on file. Original d/c plan was for a d/c to his brother's home prior to returning to [place] where he resides. CM to follow
[2020-10-09] MEDS: propofoL 1,000 MG/100 ML VIAL 26.43 MG IVCONT (15:50)
[2020-10-09] MEDS: fentaNYL citrate/NS 1,000 MCG/100 ML PLAST..BAG 10 MCG IVCONT ×2 (16:07→23:33)
[2020-10-09 16:45] LABS: Venous Blood Gas Refer to POC result
[2020-10-09 16:46] LABS: VBG Base Excess -3.3 mmol/L; VBG HCO3 24 mmol/L (22-26); VBG pCO2 56 mmHg; VBG pH 7.24 (7.32-7.43); VBG pO2 70 mmHg
[2020-10-09] MEDS: fentaNYL citrate/PF 100 MCG/2 ML VIAL IVPUSH (17:10)
[2020-10-09] MEDS: Ascorbic Acid 500 MG TABLET 1000 MG G-TUBE ×2 (17:23→23:35)
[2020-10-09 19:30] LABS: Glucose, Whole Blood 277 mg/dL (60-115)
[2020-10-09] MEDS: Insulin Regular, Human 100 UNIT/ML 3 ML VIAL IVPUSH (21:57)
[2020-10-09] MEDS: Famotidine 20 MG TABLET G-TUBE (22:00)
[2020-10-09] MEDS: Melatonin 3 MG TABLET 9 MG G-TUBE (22:00)
[2020-10-09] MEDS: 0.9 % Sodium Chloride Flush 3 ML SYRINGE IVFLUSH (23:33)
[2020-10-09] MEDS: propofoL 1,000 MG/100 ML VIAL 17.62 MG IVCONT (23:34)
[2020-10-10] VITALS (31 sets, daily range): BP systolic 102–141; BP diastolic 47–66; PULSE 71–111; RESP 13–29; TEMP 36.9–38; O2SAT 76–95; BMI 28.3
[2020-10-10 01:42] LABS: Glucose, Whole Blood 242 mg/dL (60-115)
[2020-10-10] MEDS: Heparin Sodium,Porcine 5,000 UNIT/ML VIAL 5000 UNIT SUBCUT ×3 (02:03→16:53)
[2020-10-10] MEDS: propofoL 1,000 MG/100 ML VIAL 23.5 MG IVCONT ×5 (02:03→17:58)
[2020-10-10] MEDS: Insulin Regular/NS 100 UNIT/100 ML PLAST..BAG IVCONT ×2 (02:24→14:45)
[2020-10-10 05:28] LABS: VBG Base Excess -1.9 mmol/L; VBG HCO3 24 mmol/L (22-26); VBG pCO2 46 mmHg; VBG pH 7.32 (7.32-7.43); VBG pO2 57 mmHg
[2020-10-10 05:33] LABS: Venous Blood Gas Refer to POC result
[2020-10-10 05:46] LABS: Hematocrit 40.6 % (42-52); Hemoglobin 13.4 g/dl (14.0-18.0); Mean Corpuscular Hemoglobin 28.9 pg (27.0-33.0); Mean Corpuscular Volume 87.5 fL (80-98); Mean Platelet Volume 9.7 fL (9.4-12.4); Platelet Count 121 X10*3/uL (160-400); Red Blood Count 4.64 X10*6/uL (4.60-5.80); Red Cell Distribution Width 12.1 % (11.0-16.0)
[2020-10-10 05:51] LABS: White Blood Count 39.1 X10*3/uL (4.8-10.8)
[2020-10-10] MEDS: Ascorbic Acid 500 MG TABLET 1000 MG G-TUBE ×4 (05:56→23:57)
[2020-10-10 06:11] LABS: Anion Gap 13 (12-20); Blood Urea Nitrogen 67 mg/dL (9-16); Calcium 7.8 mg/dL (8.4-10.2); Carbon Dioxide 24 mmol/L (22-29); Chloride 105 mmol/L (96-108); Creatinine Clr Calc Pharmacy 36.6; Estimated Glomerular Filt Rate 30; Glucose Random 195 mg/dL (60-115); Phosphorus 4.2 mg/dL (2.7-4.5); Potassium 5.2 mmol/L (3.3-5.1); Sodium 137 mmol/L (135-145)
[2020-10-10 06:12] LABS: Lactic Acid 1.6 mmol/L (0.5-2.0)
[2020-10-10 06:20] LABS: D Dimer 10815 NG/ML
--- NOTE | 2020-10-10 06:38 | PC.NURSE ---
CARE ASSUMED 23;15...REMAINS TUBED/VENTED PCV MODE...SAO2 93-94% WITH PEEP 10/FIO2 90%...Ve 17-19 l/m...POC GLUCOSE 01:40 = 242.....PREVIOUSLY RECEIVED INSULIN R 5 UNITS IV 10PM...PER ICU PA STARTED INSULIN 4 UNITS/HR...RECHECK GLUCOSE 0515= 196...INSULIN MAINTAINED 4 UNITS/HR
[2020-10-10 07:16] LABS: Glucose, Whole Blood 196 mg/dL (60-115)
[2020-10-10 07:18] LABS: Ferritin 4109 ng/mL (20-250)
[2020-10-10 07:37] LABS: Glucose, Whole Blood 201 mg/dL (60-115)
[2020-10-10] MEDS: fentaNYL citrate/NS 1,000 MCG/100 ML PLAST..BAG 10 MCG IVCONT (08:46)
[2020-10-10] MEDS: Doxycycline Hyclate 100 MG in 0.9 % Sodium Chloride 250 ML 166.67 MG IV ×2 (08:46→19:41)
[2020-10-10] MEDS: Cholecalciferol (Vitamin D3) 25 MCG TABLET 50 MCG G-TUBE (08:47)
[2020-10-10] MEDS: Famotidine 20 MG TABLET G-TUBE ×2 (08:47→19:42)
[2020-10-10] MEDS: Aspirin 81 MG TAB.CHEW G-TUBE (08:47)
[2020-10-10] MEDS: 0.9 % Sodium Chloride Flush 3 ML SYRINGE IVFLUSH (08:48)
[2020-10-10] MEDS: Thiamine HCL 200 MG/2 ML VIAL IVPUSH ×2 (08:48→19:42)
[2020-10-10] MEDS: methylPREDNISolone Sod Succ 125 MG/2 ML VIAL 80 MG IVPUSH ×2 (08:48→19:42)
[2020-10-10 09:51] LABS: Glucose, Whole Blood 166 mg/dL (60-115)
[2020-10-10] MEDS: 0.9 % Sodium Chloride 1,000 ML 500 ML IV (10:42)
[2020-10-10] MEDS: Metoclopramide HCl 10 MG/2 ML VIAL 5 MG IVPUSH ×2 (11:04→17:58)
[2020-10-10] MEDS: Sodium Zirconium Cyclosilicate 10 GM POWD.PACK OG-TUBE ×3 (11:04→19:42)
--- NOTE | 2020-10-10 11:08 | MHC.CLN ---
FOLLOW UP PATIENT IS INTUBATED, SEDATED AND RECEIVING TUBE FEEDING. PATIENT CURRENTLY RECEIVING PROMOTE TUBE FEEDING AT 50 ML PER HOUR WITH 240ML Q SHIFT FREE WATER FLUSHES PROVIDING 1200 KCAL (1820 KCAL WITH SEDATION; 18.2 KCAL/KG), 75.4 G PROTEIN (.75 G/KG), 1727 ML FREE WATER FROM FORMULA AND FLUSHES (17.25 ML/KG) DISCUSSED WITH MD AT ROUNDS. NURSING REPORTS HIGH RESIDUALS AND RENAL LABS ELEVATED. CHANGE FORMULA TO NEPRO. RECOMMEND NEPRO AT MAX GOAL RATE 50 ML PER HOUR WITH 300 ML EVERY 6 HOURS FREE WATER FLUSHES TO PROVIDE 2124 KCALS (2744 KCALS WITH SEDATION; 27.4 KCALS/KG), 97 G PROTEIN (.97 G/KG), 2072 ML TOTAL WATER FROM FORMULA AND FLUSHES (20.7 ML/KG) START FORMULA AT 20 ML AND INCREASE BY 10 ML Q 4 HRS UNTIL MAX GOAL OF 50 5ML IS ACHIEVED. MONITOR TOLERANCE, RESIDUALS AND LYTES
--- NOTE | 2020-10-10 11:55 | CA_ITS ---
Transthoracic Echocardiogram Patient (Last, First, Middle): Adam Cano C Gender: Male Date of : 1950 Age: 69 Procedure Date: 10/10/2020 Procedure Type: Transthoracic Echocardiogram Location: ICU Height: 187.96 cm Weight: 99.79 kg BSA: 2.26 m2 Heart Rate: bpm BP: 131 / 56 mmHg Supervisor Cabinetmaker: AMENA Referring MD: Orlin Zhang MD Internal Medicine Nurse: Charles Khoury MD Symptoms: hypotension, JANA. LV fxn, right heart, IVC, volume status. Study Quality: Poor ECG Rhythm: Sinus Conclusions: - 1. Technically poor study, as no images could be obtained from parasternal and apical windows 2. IVC is of normal size suggestive of normal volume status with normal measured RV systolic pressure on this study, could be underestimated 3. Rest of the cardiac structures not well visualized Findings Left Ventricle The left ventricle was not well visualized. Right Ventricle The right ventricle was not well visualized. Atria The left atrium was not well visualized. There is no evidence of interatrial shunt. The right atrium was not well visualized. Aortic Valve The aortic valve was not well visualized. Mitral Valve The mitral valve was not well visualized. Pulmonic Valve The pulmonic valve was not well visualized. Tricuspid Valve The right ventricular systolic pressure is normal. The right ventricular systolic pressure is 35 mmHg. Normal right atrial pressure. Great Vessels The aorta was not well visualized. The pulmonary artery was not well visualized. Venous The inferior vena cava is normal in size and collapses greater than 50% with inspiration. Pericardium/Pleural The pericardium was not well visualized. Prior Study Comparison No prior study available for comparison. Measurements Tricuspid Valve TR Pk Jamey: 2.81 TR Pk Grad: 32.00 RA Press: 3.00 RVSP: 35.00 Updated in Other Vendor System with Status of Final Charles Khoury MD electronically signed on 10/10/2020 4:23:00 PM with status of Final
--- NOTE | 2020-10-10 12:05 | MHC.CM.PN ---
Pt continues in ICU: vented with COVID: No plans for weaning today: pt from [place] and is visiting family here. CM to follow for finalization of d/c plans
--- NOTE | 2020-10-10 13:18 | P.PNCC_ITS ---
Subjective Subjective Date of Service: 10/10/20 Interval History: Mr. Cano was transferred down to ICU on October 07 with hypoxemic respiratory failure secondary to bilat COVID pneumonia. 69-year-old male with past medical history of chronic back pain. The patient lives in [place]. He was symptomatic with what he thinks was COVID in May of 2019, but he was never tested, nor was he hospitalized. He has not had the COVID vaccine. At the end of August, he drove here to [place] to attend his father?s . Had not been feeling well since then. Very tired. Presented to the [place] ED on September 28 c/o dyspnea on exertion and dry cough. Denied fevers or diarrhea. In the ED, the Sat was 89% on room air. COVID positive, with cycle threshold 17. DDimer was 2100. CXR had questionable subtle infiltrates. CTPA chest showed mild-moderate COVID infiltrates. By my reading, PA size was borderline enlarged, RV at least top normal, and RA enlarged. The patient was admitted to Medicine and treated with Decadron, plus Zithromax x 3 days. Was also given a 5 day course of remdesivir. Venous duplex on September 29 was negative for DVT. His FiO2 escalated rapidly. On October 03, [place] [address]. He was sent for perfusion scan which showed a segmental defect thoug ht likely related to underlying prominent hilum. He was not able to tolerate high-flow secondary to deviated septum. [place] 10/04[place] [address]. BNP was only 47. PCT was 0.1. On October 07, he required escalation to CPAP, and was therefore transferred to ICU. Initial FiO2 was 60% which then escalated to 80%. His work of breathing increased and CPAP was escalated to BiPAP. The next day he was able to go onto NRBFM plus O2 nasal cannula, but he deteriorated that night and the next morn ing, so he was intubated yesterday morning. Notably, the post intubation CXR suggested pneumomediastinum and poss SQ emphysema to me, altho the radiologist didn?t call it. Currently sedated on propofol @ 40ug, and fentanyl 100ug. Opens eyes to command, altho noninteractive. See vital signs below. Regular sinus rhythm. On PC rate 26, 22/10, 95%/+10, rate was 27-28, Vt was 720cc, Sat 93%. He has gross SQ emphysema from mid chest to the neck. I dropped the insp press to 14, tidal vols were unchanged at 500-800cc, RR 28, Ve 16L, PIP 25cm, ETCO2 24, Sat 90%. Central venous blood gas this morning showed 7.32/46/-2. Tmax 100.6. No JVD at 30 degrees. Abdomen is benign with good bowel sounds. There is no peripheral edema. Neuro exam is nonfocal/noninteractive, otherwise intact. LABORATORY DATA: As below. Notably, white count is bumped further to 39 this morning after upping the steroids two days ago. BUN/creatinine are up to 67/2.2, but phos is only up to 4.2. Lactic acid down to 1.6. D-dimer is down to 10,000, ferritin is up to 4100. Urine Na is 21. Chest x-ray this morning shows a small PTX, probably 20-25%. I put a chest tube in (see separate procedure), resulting in almost full resolution, with just a tiny rim of residual air laterally. Duplex scan on 10/08 showed a small calf vein DVT in a branch of the right peroneal vein. Repeat US will be done today. ECHOCARDIOGRAM done at the bedside by the [facility], interpreted by me. Image quality: Fair. Unable to obtain any images from the parasternal or apical planes. Subcostal images suggested normal LV wall thickness with normal LV function, ejection fraction at least 60%. No regional wall motion abnormalit ies noted. RV size is normal. RV function could not be evaluated. 1+ TR by color-flow Doppler; Off axis CWD was measured 2.5 m/sec. IVC measured 1.5 cm with good insp collapse. IMPRESSION: 1. Bilateral COVID pneumonia with ARDS. Now on Solu-Medrol 80 mg bid and a 5 day course of ivermectin. He?s had a 5-day course of remdesivir. Also on vitamin-B, vit C, Vit D, thiamine, melatonin, and ASA. 2 Acute hypoxemic respiratory failure. Required intubation. Developed barotrauma immediately with PPV, even at low airway pressures. Multiple discussions with Radiology. He?s now in for the long haul. 3. Acute kidney injury. Marked increase in his indices today, but urine Na and the echo suggests he?s dry. Wrote for crystalloid bolus and infusion. Recheck labs this evening and recheck urine Na in the morning. 4. Markedly elevated D-dimer. Associated with calf DVT. Cannot rule out pulm onary micro-VTE. Normal troponin and BNP rule out significant PE, for all intents and purposes. For now, continuing with heparin 5000 units tid for DVT prophylaxis, plus aspirin. Repeat duplex scan later today 5. ID: White count elevated, with low-grade temperature. Started doxycycline 10/08. Blood cultures drawn yesterday are negative. Still no suggestion that he has bacterial sepsis. We?ll send a u/a and a sputum. 6. Thrombocytopenia: ? Chronic. Nothing to do. 7. Hyperglycemia. 2? steroids. On insulin drip. 8. Metabolic. Started loKelma to prevent hyperkalemia. 9. Nutrition: At least mild if not moderate protein calorie malnutrition. Starting on Nepro. Called his son Poli in [place], [place] ([phone]) and updated him on today?s events, including the PTX and the worse JANA, and the prognostic significance thereof. Critical care time (excluding procedures): 75+ minutes Critical Care Time (minutes): 75 Physical Exam Vital Signs: Vital Signs: Last Vital Signs Temp 98.4 F 10/10/20 13:00 Pulse 85 10/10/20 13:00 Resp 29 H 10/10/20 13:00 BP 131/56 L 10/10/20 13:00 Pulse Ox 86 L 10/10/20 13:00 Body Mass Index 28.3 Objective Data Labs CBC & Chem 7: 10/10/20 05:15 10/10/20 05:15 Labs: Laboratory Results - last 24 hr 10/09/20 10/09/20 10/09/20 13:41 16:37 19:25 WBC RBC Hgb Hct MCV MCH MCHC RDW Plt Count MPV Absolute Nucleated RBC Nucleated RBC % (auto) D-Dimer VBG pH 7.14 L* 7.24 L VBG pCO2 80 56 VBG pO2 124 70 VBG HCO3 28 H 24 VBG O2 Saturation 97.0 89.0 VBG Base Excess -3.3 -3.3 Sodium Potassium Chloride Carbon Dioxide Anion Gap BUN Creatinine Estim Creat Clear Calc Estimated GFR POC Glucose 277 H Random Glucose Lactic Acid Calcium Phosphorus Ferritin 10/10/20 10/10/20 10/10/20 01:34 05:13 05:15 WBC 39.1 H* RBC 4.64 Hgb 13.4 L Hct 40.6 L MCV 87.5 MCH 28.9 MCHC 33.0 RDW 12.1 Plt Count 121 L MPV 9.7 Absolute Nucleated RBC 0.000 Nucleated RBC % (auto) 0.0 D-Dimer VBG pH VBG pCO2 VBG pO2 VBG HCO3 VBG O2 Saturation VBG Base Excess Sodium Potassium Chloride Carbon Dioxide Anion Gap BUN Creatinine Estim Creat Clear Calc Estimated GFR POC Glucose 242 H 196 H Random Glucose Lactic Acid Calcium Phosphorus Ferritin 10/10/20 10/10/20 10/10/20 05:15 05:15 05:15 WBC RBC Hgb Hct MCV MCH MCHC RDW Plt Count MPV Absolute Nucleated RBC Nucleated RBC % (auto) D-Dimer 84432 VBG pH VBG pCO2 VBG pO2 VBG HCO3 VBG O2 Saturation VBG Base Excess Sodium 137 Potassium 5.2 H Chloride 105 Carbon Dioxide 24 Anion Gap 13 BUN 67 H D Creatinine 2.21 H Estim Creat Clear Calc 36.6 Estimated GFR 30 POC Glucose Random Glucose 195 H Lactic Acid 1.6 Calcium 7.8 L Phosphorus 4.2 Ferritin 4109 H 10/10/20 10/10/20 10/10/20 05:19 07:17 09:45 WBC RBC Hgb Hct MCV MCH MCHC RDW Plt Count MPV Absolute Nucleated RBC Nucleated RBC % (auto) D-Dimer VBG pH 7.32 VBG pCO2 46 VBG pO2 57 VBG HCO3 24 VBG O2 Saturation 85.0 VBG Base Excess -1.9 Sodium Potassium Chloride Carbon Dioxide Anion Gap BUN Creatinine Estim Creat Clear Calc Estimated GFR POC Glucose 201 H 166 H Random Glucose Lactic Acid Calcium Phosphorus Ferritin Microbiology Microbiology Results: Microbiology 10/01/20 09:02 Blood - Venous Blood Culture - Final No growth after 5 days. 10/01/20 09:09 Blood - Venous Blood Culture - Final No growth after 5 days. Quality Stroke Does the patient have a stroke diagnosis?: No VTE Prior VTE?: No VTE Risk Level:: Medical - moderate - high VTE Device Contraindication: Treatment Not Indicated VTE Drug Contraindication: N/A - Med Ordered Critical Care Time Critical Care Time (minutes): 90
[2020-10-10] MEDS: 0.9 % Sodium Chloride 1,000 ML 50 ML IVCONT (13:25)
[2020-10-10 13:35] LABS: Glucose, Whole Blood 164 mg/dL (60-115)
--- NOTE | 2020-10-10 14:54 | PC.NURSE ---
Pt noted to have new subcutaneous emphysema 4th intercostal space to shoulders bilat up to jaw. MD aware. Repeat CXR ordered, pneumothorax noted. Chest tube placed right upper lobe 1300 per MD MINESH, attached to [facility]rium chest tube system dry suction water seal at [id number] bellow is out, tidaling present, no airleak, repeat CXR complete. Switched to nepro tube feed. Insulin drip at 5u/hr last two POC 166 and 164 4hrs apart. Propofol at 40mcg/kg/min, levo at 0.05, got 1L NS at 500ml/hr 2/2 increased BUN/creat, U/O 30ml/hr. NS x1 liter at 50ml/hr. Fentanyl increased to 200mcg/hr to decrease Vt, now averaging 450ml Vt Ve down to 12. ]
--- NOTE | 2020-10-10 15:25 | W.PM.CCHP ---
Procedures Date of Service Date of Service: 10/10/20 Chest Tube Chest Tube 1: Progress: PROCEDURE: Insertion Hector pigtail pneumothorax drainage catheter. INDICATION: Right pneumothorax 2? barotrauma. ANESTHESIA: Local plus propofol & fentanyl infusions. PROCEDURE: CXR done after discovery of SQ emphysema identified a right pneumothorax this morning. A thorocostomy tube was placed emergently. The right chest was widely prepped. The 18 g needle from the [employer] pneumothorax tray was placed into the chest above the second rib in the MCL. Air was easily aspirated on entering the thoracic cavity. The wire was threaded, then the needle withdrawn and the large cabrera dilator inserted. The dilator was then removed from the wire and replaced by the pigtail mounted on its inner stylette. The pigtail was advanced easily about 6-8? into the chest, and then hooked up to a Heimlich valve. The pigtail was then sutured x 1 to the anter chest wall, and a DSD applied. Postop chest x-ray showed the pigtail in good position with trivial residual pneumothorax. The patient tolerated the procedure well w no complications.
[2020-10-10] MEDS: fentaNYL citrate/NS 1,000 MCG/100 ML PLAST..BAG 20 MCG IVCONT ×3 (15:53→23:57)
[2020-10-10 16:02] LABS: Glucose Urine UA NEG (NEG); Leukocyte Esterase Urine NEG (NEG); Nitrite Urine NEG (NEG); PH 5.5 (5.0-8.0); Specific Gravity - Urine 1.025 (1.005-1.025); Urine Blood 2+ (NEG); Urine Ketones NEG (NEG); Urine Protein 1+ MG/DL (NEG-TRACE)
[2020-10-10 16:04] LABS: Appearance Urine HAZY; Color Urine YELLOW
[2020-10-10 16:22] LABS: Amorphous Sediment Urine TRACE /LPF; Bacteria Urine 1+ /LPF; Mucus Urine TRACE /LPF; Squamous Epithelial Cell Urine TRACE /LPF; Uric Acid Crystals Urine 1+ /LPF
[2020-10-10 17:47] LABS: Glucose, Whole Blood 127 mg/dL (60-115)
[2020-10-10 18:58] LABS: Anion Gap 14 (12-20); Blood Urea Nitrogen 76 mg/dL (9-16); Calcium 7.9 mg/dL (8.4-10.2); Carbon Dioxide 23 mmol/L (22-29); Chloride 108 mmol/L (96-108); Creatinine Clr Calc Pharmacy 34.6; Estimated Glomerular Filt Rate 25; Glucose Random 133 mg/dL (60-115); Potassium 5.3 mmol/L (3.3-5.1); Sodium 140 mmol/L (135-145)
[2020-10-10] MEDS: Melatonin 3 MG TABLET 9 MG G-TUBE (19:42)
[2020-10-10 21:29] LABS: Glucose, Whole Blood 127 mg/dL (60-115)
[2020-10-10] MEDS: propofoL 1,000 MG/100 ML VIAL 29.37 MG IVCONT ×2 (21:32→23:57)
--- NOTE | 2020-10-10 21:42 | W.PM.CCHP ---
Procedures Date of Service Date of Service: 10/10/20
[2020-10-11] VITALS (30 sets, daily range): BP systolic 94–136; BP diastolic 43–63; PULSE 95–116; RESP 19–37; TEMP 37.1–38.1; O2SAT 87–94
[2020-10-11 02:17] LABS: Glucose, Whole Blood 106 mg/dL (60-115)
[2020-10-11] MEDS: Metoclopramide HCl 10 MG/2 ML VIAL 5 MG IVPUSH ×3 (02:35→21:10)
[2020-10-11] MEDS: Heparin Sodium,Porcine 5,000 UNIT/ML VIAL 5000 UNIT SUBCUT ×3 (02:35→17:33)
[2020-10-11] MEDS: propofoL 1,000 MG/100 ML VIAL 29.37 MG IVCONT ×2 (03:37→06:20)
[2020-10-11] MEDS: 0.9 % Sodium Chloride 1,000 ML 50 ML IVCONT (05:30)
[2020-10-11] MEDS: fentaNYL citrate/NS 1,000 MCG/100 ML PLAST..BAG 20 MCG IVCONT ×2 (05:33→10:21)
[2020-10-11] MEDS: Ascorbic Acid 500 MG TABLET 1000 MG G-TUBE ×3 (05:33→17:33)
[2020-10-11 05:38] LABS: VBG Base Excess -9.3 mmol/L; VBG HCO3 20 mmol/L (22-26); VBG pCO2 57 mmHg; VBG pH 7.14 (7.32-7.43); VBG pO2 59 mmHg
[2020-10-11 05:41] LABS: Hematocrit 42.4 % (42-52); Hemoglobin 13.1 g/dl (14.0-18.0); Mean Corpuscular HGB Conc 30.9 g/dl (31.0-36.0); Mean Corpuscular Hemoglobin 28.5 pg (27.0-33.0); Mean Corpuscular Volume 92.2 fL (80-98); Mean Platelet Volume 9.3 fL (9.4-12.4); Platelet Count 118 X10*3/uL (160-400); Red Cell Distribution Width 12.3 % (11.0-16.0)
[2020-10-11 05:44] LABS: White Blood Count 47.3 X10*3/uL (4.8-10.8)
--- NOTE | 2020-10-11 05:52 | PC.NURSE ---
Tmax 100.4 core. NSR/ST on tele, HR 90-110s. Levophed titrated to maintain MAP > 65. Sedated on propofol/fentanyl, responds to noxious stimuli, does not open eyes or follow commands, minimal C/G. Sedation titrated for vent synchrony. ETT #8, 26 cm at lip. PCV- f 26, Pi 16, Vt 450-700, PEEP 8, FiO2 titrated to 80%. RR 30, SpO2 92%. Bloody oral secretions, scant inline. Chest tube to R anterior chest, -20 cm suction, small amount of serosanguinous drainage, no air leak, dsg C/D/I. Nepro tf running at 20 mL/hr, GRV 120 mL. Insulin gtt titrated per protocol. Ceron in place, UOP 30 mL/hr, small shreds noted. Skin intact- bruising throughout and redness to buttocks. Barrier cream applied, air boots on, prevalon mattress, repo q2hr. PA made aware of critical AM labs. Family called/updated.
[2020-10-11 05:57] LABS: Venous Blood Gas Refer to POC result
[2020-10-11 05:57] LABS: Glucose, Whole Blood 131 mg/dL (60-115)
[2020-10-11] MEDS: Insulin Regular, Human 100 UNIT/ML 3 ML VIAL IVPUSH (06:00)
[2020-10-11 06:14] LABS: Alanine Aminotransferase 43 U/L (0-40); Albumin Level 2.5 g/dL (3.5-5.0); Alkaline Phosphatase 89 U/L (39-117); Anion Gap 17 (12-20); Aspartate Amino Transferase 44 U/L (5-37); Bilirubin Total 1.5 mg/dL (0.0-1.0); Blood Urea Nitrogen 85 mg/dL (9-16); Calcium 7.8 mg/dL (8.4-10.2); Carbon Dioxide 20 mmol/L (22-29); Chloride 107 mmol/L (96-108); Creatinine Clr Calc Pharmacy 25.7; Estimated Glomerular Filt Rate 18; Glucose Random 135 mg/dL (60-115); Magnesium 2.8 mg/dL (1.6-2.6); Phosphorus 8.5 mg/dL (2.7-4.5); Potassium 6.3 mmol/L (3.3-5.1); Sodium 138 mmol/L (135-145); Total Protein 5.5 g/dL (6.5-8.0)
[2020-10-11] MEDS: methylPREDNISolone Sod Succ 125 MG/2 ML VIAL 80 MG IVPUSH ×2 (08:14→21:11)
[2020-10-11] MEDS: Aspirin 81 MG TAB.CHEW G-TUBE (08:14)
[2020-10-11] MEDS: Cholecalciferol (Vitamin D3) 25 MCG TABLET 50 MCG G-TUBE (08:14)
[2020-10-11] MEDS: Famotidine 20 MG TABLET G-TUBE ×2 (08:14→21:11)
[2020-10-11] MEDS: Sodium Zirconium Cyclosilicate 10 GM POWD.PACK OG-TUBE ×3 (08:14→21:11)
[2020-10-11] MEDS: Thiamine HCL 200 MG/2 ML VIAL IVPUSH ×2 (08:15→21:11)
[2020-10-11] MEDS: Doxycycline Hyclate 100 MG in 0.9 % Sodium Chloride 250 ML 166.67 MG IV (08:20)
[2020-10-11 10:06] LABS: Glucose, Whole Blood 155 mg/dL (60-115)
[2020-10-11] MEDS: propofoL 1,000 MG/100 ML VIAL 23.5 MG IVCONT ×4 (10:30→23:01)
--- NOTE | 2020-10-11 10:33 | PHA.PROG ---
Addendum entered by Ambika Rodriguez [facility] 10/13/20 16:10: Random vancomycin level of 8.9 today suggests that a regimen of 1g q48 hours would be a less aggressive option with predicted AUC 490 which is toward the middle of the therapeutic range. Continue to dose by level using random vancomycin levels as a surrogate marker of AUC timed to be drawn 2 hours post-dialysis. ~Raquel Rodriguez, PharmD, BCPS, BCCCP x [phone] Original Note: Admission Date/Time: September 28, 2020 23:52 Indication: Empiric therapy for suspected bacterial infection potentially respiratory Weight in k.1 kg Adjusted body weight in K kg [place] body weight in K kg Obesity Dosing Indication % IBW: 122% (patient is at the border of dosing on adjusted vs actual body weight) Serum Creatinine - Last 168 Hours 10/06/20 10/08/20 10/09/20 04:38 05:17 05:45 Creatinine 0.91 1.08 0.94 10/10/20 10/10/20 10/11/20 05:15 18:10 05:30 Creatinine 2.21 H 2.54 H 3.42 H Estimated CrCl and GFR - Last 168 Hours 10/06/20 10/08/20 10/09/20 04:38 05:17 05:45 Estim Creat Clear Calc 101.2 81.1 86.2 Estimated GFR > 60 > 60 > 60 10/10/20 10/10/20 10/11/20 05:15 18:10 05:30 Estim Creat Clear Calc 36.6 34.6 25.7 Estimated GFR 30 25 18 Vancomycin Loading Dose: 1750 mg (17.5 mg/kg based on actual BW or 19.7 mg/kg based on adjusted BW; either way within the acceptable range for age and indication) Current Vancomycin Dosing Regimen: 1250 mg q48h (12.5 mg/kg based on actual BW or 14 mg/kg based on adjusted BW also within the acceptable range for age and indication) Vancomycin Monitoring using AUC goal of 400 - 600 range with trough as surrogate marker: n13.3 mg/L suggests a corresponding AUC of 432 mg/L/hr. The [employer] software will be used in combination with the dosing by level strategy based on the patient's renal function at this time. Date and Time for next Vancomycin Level to be drawn: Vancomycin random level 10/13 with Sat AM morning labs Pharmacist Comments on Vancomycin Plan: Patient with an elevated WBC of 47.3 so will use a septic dosing mindset. However, the patient also has a significantly elevated SCR that may be related to the COVID infection. However, the renal picture suggests that consideration of dialysis may be on the horizon so will tailor regimen starting with a q48h regimen with dosing in the afternoon that will easily accommodate dosing after dialysis should the need arise. Vancomycin dosing will take advantage of [employer] as a clinical decision support tool that uses Bayesian modeling to calculate individual patient's pharmacokinetic parameters and forecast the patient's drug concentration time course with the target goal AUC 24 range of 400 - 600 mg/L/hr. ~Raquel Rodriguez, PharmD, BCPS, BCCCP x [phone]
[2020-10-11] MEDS: Piperacillin Sodium/Tazobactam 3.375 GM in 0.9 % Sodium Chloride 50 ML IV ×3 (11:18→23:43)
--- NOTE | 2020-10-11 11:24 | MHC.CM.PN ---
Patient remains intubated/vented in ICU. Positive for Covid. Patient is from [facility]. Was here visiting family. Continue to monitor for d/c needs.
[2020-10-11 11:41] LABS: Alanine Aminotransferase 48 U/L (0-40); Albumin Level 2.5 g/dL (3.5-5.0); Alkaline Phosphatase 89 U/L (39-117); Anion Gap 14 (12-20); Aspartate Amino Transferase 47 U/L (5-37); Bilirubin Total 1.6 mg/dL (0.0-1.0); Blood Urea Nitrogen 90 mg/dL (9-16); Calcium 7.6 mg/dL (8.4-10.2); Carbon Dioxide 22 mmol/L (22-29); Chloride 107 mmol/L (96-108); Creatinine Clr Calc Pharmacy 23.1; Estimated Glomerular Filt Rate 16; Glucose Random 157 mg/dL (60-115); Potassium 6.4 mmol/L (3.3-5.1); Sodium 137 mmol/L (135-145); Total Protein 5.4 g/dL (6.5-8.0)
--- NOTE | 2020-10-11 12:44 | PM.CCPN ---
Subjective Subjective Date of Service: 10/11/20 Interval History: Mr. Cano was transferred down to ICU on October 07 with hypoxemic respiratory failure secondary to bilat COVID pneumonia. 69-year-old male with past medical history of chronic back pain. The patient lives in [place]. He was symptomatic with what he thinks was COVID in May of 2019, but he was never tested, nor was he hospitalized. He has not had the COVID vaccine. At the end of August, he drove here to [place] to attend his father?s . Had not been feeling well since then. Very tired. Presented to the [place] ED on September 28 c/o dyspnea on exertion and dry cough. Denied fevers or diarrhea. In the ED, the Sat was 89% on room air. COVID positive, with cycle threshold 17. DDimer was 2100. CXR had questionable subtle infiltrates. CTPA chest showed mild-moderate COVID infiltrates. By my reading, PA size was borderline enlarged, RV at least top normal, and RA enlarged. The patient was admitted to Medicine and treated with Decadron, plus Zithromax x 3 days. Was also given a 5 day course of remdesivir. Venous duplex on September 29 was negative for DVT. His FiO2 escalated rapidly. [place] October 03, [place] [address]. He was sent for perfusion scan which showed a segmental defect thought likely related to underlying prominent hilum. He was not able to tolerate high-flow secondary to deviated septum. [place] [address]. BNP was only 47. PCT was 0.1. On October 07, he required escalation to CPAP, and was therefore transferred to ICU. Initial FiO2 was 60% which then escalated to 80%. His work of breathing increased and CPAP was escalated to BiPAP. The next day he was able to go onto NRBFM plus O2 nasal cannula, but he deteriorated that night and the next morning, so he was intubated on October 09. The post intubation CXR suggested pneumomediastinum and poss SQ emphysema. The next morning he had obvious SQ emphysema on exam, and CXR showed a 20-25% right PTX, so a right pigtail thoracostomy was placed, with near full resolution of the PTX. We also dropped his insp pressure to 14. Duplex scan on 10/08 showed a small calf vein DVT in a branch of the right peroneal vein. We kept him on Heparin 5000 u tid and added ASA. Repeat US done yesterday was unchanged from 10/08 (ie. no progression). ECHOCARDIOGRAM done yesterday at the bedside by the tech, interpreted by me: Image quality: Fair. Unable to obtain any parasternal or apical images. Good images from the subcostal plane. Normal LV wall thickness with normal LV function, ejection fraction at least 60%. No regional wall motion abnormalities noted. RV size is normal. RV function could not be evaluated. 1+ TR by color-flow Doppler; off axis CWD measured 2.5 m/sec. IVC measured 1.5 cm with good insp collapse. We gave him a liter bolus of crystalloid, and put him on a crystalloid infusion. Currently sedated on propofol @ 40ug, and fentanyl 100ug. Also on Levophed @ 0.09ug and insulin drip. See vital signs below. Regular sinus rhythm. On PC rate 26, 16/10, 70%/+10, rate is 27-30, Vt avg 550cc, Ve 14L, PIP 27cm, ETCO2 38, Sat 91%. Central venous blood gas this morning showed 7.14/57/-9. Tmax 100.6. No JVD at 30 degrees. SQ emphysema now increasing on left side. Abdomen is soft, benign. Residuals increased to 500cc, despite reglan. There is no peripheral edema. Neuro exam is nonfocal/noninteractive, otherwise intact. LABORATORY DATA: As below. Notably, white count is further increased to 47 this morning. BUN/creatinine are up to 90/3.8 at 10am, with phos up to 8.5, potassium up to 6.4 despite bicarb and insulin, bicarb is 22. T bili 1.6, albumin is 2.5. Urine Na is 29. Chest x-ray this morning shows a small PTX on the L lateral lower left, probably less than 10%. Still has pneumomediastinum and subcutaneous emphysema. Pulmonary infiltrates on the chest x-ray don?t look too bad. IMPRESSION: 1. Bilateral COVID pneumonia with ARDS. Now on Solu-Medrol 80 mg bid and a 5 day course of ivermectin. He?s had a 5-day course of remdesivir. Also on vitamin-B, vit C, Vit D, thiamine, melatonin, and ASA. 2 Acute hypoxemic respiratory failure. Required intubation. Developed barotrauma immediately with PPV, even at low airway pressures. Discussed again with Radiology today. Hold on thoracostomy for now, repeat chest x-ray in 4 hours. Poor prognostic sign. 3. Acute kidney injury. Further marked increase in his indices today. With the phosphorus and potassium moving as they are, it?s pretty much a certainty that he?ll wind up on dialysis. 4. Markedly elevated D-dimer. Associated with calf DVT. Cannot rule out pulmonary micro-VTE. Normal troponin and BNP rule out significant PE, for all intents and purposes. For now, continuing with heparin 5000 units tid for DVT prophylaxis, plus aspirin. 5. ID: White count elevated, with low-grade temperature. Started doxycycline 10/08. Blood cultures drawn 10/09 are negative, u/a is negative, and he?s not making any sputum to send to Micro. Still no specific suggestion that he has bacterial sepsis, but with the WBC rising and developing renal failure, cannot take the chance that he?s not septic. We?ll change the doxycycline to Zosyn and vanco. 6. Thrombocytopenia: ? Chronic. Nothing to do. 7. Metabolic. Started loKelma to prevent hyperkalemia. Started bicarb drip. Diluted in D10 to allow us to give more insulin, to help control his potassium. 8. Hyperglycemia. 2? steroids. On insulin drip. 9. Nutrition: At least mild if not moderate protein calorie malnutrition. Holding tube feeds bec of high residuals. On Reglan. We?ll add erythromycin if we have it in the pharmacy. Called his son Poli in [place], [place] ([phone]) and updated him on today?s events, including the PTX and the worse JANA, and the prognostic significance thereof. Discussed at great length the significance of all the above, how we were getting deep into COVID and life support, how this is going to be a very prolonged course, if he survives, and that recovery is going to be arduous, difficult, and burn some. I asked him to talk with his sister and his mother about whether his father would want that. I told him that given that his father was in generally good health, his prognosis for someone his age and the current situation, is the best that it can be, so that was certainly in his favor. Critical care time (excluding procedures): 75 minutes Critical Care Time (minutes): 75 Physical Exam Vital Signs: Vital Signs: Last Vital Signs Temp 100.6 F H 10/11/20 12:00 Pulse 115 H 10/11/20 12:00 Resp 25 H 10/11/20 12:00 BP 114/54 L 10/11/20 12:00 Pulse Ox 91 L 10/11/20 12:00 Body Mass Index 28.3 Objective Data Labs CBC & Chem 7: 10/12/20 05:30 10/12/20 05:30 Labs: Laboratory Results - last 24 hr 10/10/20 10/10/20 10/10/20 05:15 13:24 13:27 WBC RBC Hgb Hct MCV MCH MCHC RDW Plt Count MPV Absolute Nucleated RBC Nucleated RBC % (auto) Smear Path Review SEE NOTE VBG pH VBG pCO2 VBG pO2 VBG HCO3 VBG O2 Saturation VBG Base Excess Sodium Potassium Chloride Carbon Dioxide Anion Gap BUN Creatinine Estim Creat Clear Calc Estimated GFR POC Glucose 164 H Random Glucose Calcium Phosphorus Magnesium Total Bilirubin AST ALT Alkaline Phosphatase Total Protein Albumin Urine Color Urine Appearance Urine pH Ur Specific [place] Urine Protein Urine Glucose (UA) Urine Ketones Urine Blood Urine Nitrite Ur Leukocyte Esterase Urine RBC Urine WBC Ur Squamous Epith Cells Uric Acid Crystals Amorphous Sediment Urine Bacteria Urine Mucus Ur Random Sodium 21.0 10/10/20 10/10/20 10/10/20 15:37 17:38 18:10 WBC RBC Hgb Hct MCV MCH MCHC RDW Plt Count MPV Absolute Nucleated RBC Nucleated RBC % (auto) Smear Path Review VBG pH VBG pCO2 VBG pO2 VBG HCO3 VBG O2 Saturation VBG Base Excess Sodium 140 Potassium 5.3 H Chloride 108 Carbon Dioxide 23 Anion Gap 14 BUN 76 H Creatinine 2.54 H Estim Creat Clear Calc 34.6 Estimated GFR 25 POC Glucose 127 H Random Glucose 133 H Calcium 7.9 L Phosphorus Magnesium Total Bilirubin AST ALT Alkaline Phosphatase Total Protein Albumin Urine Color YELLOW Urine Appearance HAZY Urine pH 5.5 Ur Specific [place] 1.025 Urine Protein 1+ H Urine Glucose (UA) NEG Urine Ketones NEG Urine Blood 2+ H Urine Nitrite NEG Ur Leukocyte Esterase NEG Urine RBC 15-29 H Urine WBC 1-4 Ur Squamous Epith Cells TRACE Uric Acid Crystals 1+ Amorphous Sediment TRACE Urine Bacteria 1+ Urine Mucus TRACE Ur Random Sodium 10/10/20 10/11/20 10/11/20 21:25 02:11 05:30 WBC 47.3 H* RBC 4.60 Hgb 13.1 L Hct 42.4 MCV 92.2 MCH 28.5 MCHC 30.9 L RDW 12.3 Plt Count 118 L MPV 9.3 L Absolute Nucleated RBC 0.000 Nucleated RBC % (auto) 0.0 Smear Path Review VBG pH VBG pCO2 VBG pO2 VBG HCO3 VBG O2 Saturation VBG Base Excess Sodium Potassium Chloride Carbon Dioxide Anion Gap BUN Creatinine Estim Creat Clear Calc Estimated GFR POC Glucose 127 H 106 Random Glucose Calcium Phosphorus Magnesium Total Bilirubin AST ALT Alkaline Phosphatase Total Protein Albumin Urine Color Urine Appearance Urine pH Ur Specific [place] Urine Protein Urine Glucose (UA) Urine Ketones Urine Blood Urine Nitrite Ur Leukocyte Esterase Urine RBC Urine WBC Ur Squamous Epith Cells Uric Acid Crystals Amorphous Sediment Urine Bacteria Urine Mucus Ur Random Sodium 10/11/20 10/11/20 10/11/20 05:30 05:31 05:35 WBC RBC Hgb Hct MCV MCH MCHC RDW Plt Count MPV Absolute Nucleated RBC Nucleated RBC % (auto) Smear Path Review VBG pH 7.14 L* VBG pCO2 57 VBG pO2 59 VBG HCO3 20 L VBG O2 Saturation 91.0 VBG Base Excess -9.3 Sodium 138 Potassium 6.3 H* Chloride 107 Carbon Dioxide 20 L Anion Gap 17 BUN 85 H* Creatinine 3.42 H Estim Creat Clear Calc 25.7 Estimated GFR 18 POC Glucose 131 H Random Glucose 135 H Calcium 7.8 L Phosphorus 8.5 H Magnesium 2.8 H Total Bilirubin 1.5 H AST 44 H D ALT 43 H Alkaline Phosphatase 89 Total Protein 5.5 L Albumin 2.5 L Urine Color Urine Appearance Urine pH Ur Specific [place] Urine Protein Urine Glucose (UA) Urine Ketones Urine Blood Urine Nitrite Ur Leukocyte Esterase Urine RBC Urine WBC Ur Squamous Epith Cells Uric Acid Crystals Amorphous Sediment Urine Bacteria Urine Mucus Ur Random Sodium 10/11/20 10/11/20 10/11/20 06:18 10:01 10:41 WBC RBC Hgb Hct MCV MCH MCHC RDW Plt Count MPV Absolute Nucleated RBC Nucleated RBC % (auto) Smear Path Review VBG pH VBG pCO2 VBG pO2 VBG HCO3 VBG O2 Saturation VBG Base Excess Sodium 137 Potassium 6.4 H* Chloride 107 Carbon Dioxide 22 Anion Gap 14 BUN 90 H* Creatinine 3.80 H Estim Creat Clear Calc 23.1 Estimated GFR 16 POC Glucose 155 H Random Glucose 157 H Calcium 7.6 L Phosphorus Magnesium Total Bilirubin 1.6 H AST 47 H ALT 48 H Alkaline Phosphatase 89 Total Protein 5.4 L Albumin 2.5 L Urine Color Urine Appearance Urine pH Ur Specific [place] Urine Protein Urine Glucose (UA) Urine Ketones Urine Blood Urine Nitrite Ur Leukocyte Esterase Urine RBC Urine WBC Ur Squamous Epith Cells Uric Acid Crystals Amorphous Sediment Urine Bacteria Urine Mucus Ur Random Sodium 29.0 Microbiology Microbiology Results: Microbiology 10/09/20 16:35 Blood - Venous Blood Culture - Preliminary No growth after 24 hours. 10/09/20 16:35 Blood - Venous Blood Culture - Preliminary No growth after 24 hours. 10/01/20 09:02 Blood - Venous Blood Culture - Final No growth after 5 days. 10/01/20 09:09 Blood - Venous Blood Culture - Final No growth after 5 days. Quality Stroke Does the patient have a stroke diagnosis?: No VTE Prior VTE?: No VTE Risk Level:: Medical - moderate - high VTE Device Contraindication: Treatment Not Indicated VTE Drug Contraindication: N/A - Med Ordered Critical Care Time Critical Care Time (minutes): 90
[2020-10-11] MEDS: Sodium Bicarbonate 8.4% 150 MEQ in Dextrose 5 % 850 ML 75 MEQ IV ×2 (13:08→23:43)
[2020-10-11] MEDS: Lactulose 20 GM/30 ML SOLUTION 30 GM OG-TUBE ×3 (14:19→21:11)
[2020-10-11 14:20] LABS: Glucose, Whole Blood 149 mg/dL (60-115)
[2020-10-11] MEDS: vancomycin HCL 1,000 MG, vancomycin HCL 750 MG in 0.9 % Sodium Chloride 500 ML 267.5 MG IV (14:20)
[2020-10-11] MEDS: fentaNYL citrate/NS 1,000 MCG/100 ML PLAST..BAG 15 MCG IVCONT (17:09)
[2020-10-11] MEDS: Insulin Regular/NS 100 UNIT/100 ML PLAST..BAG IVCONT (17:09)
[2020-10-11] MEDS: Chlorhexidine Gluc Oral Rinse 15 ML MOUTHWASH BUCCAL ×2 (17:14→21:10)
[2020-10-11] MEDS: Erythromycin Base 250 MG TABLET 500 MG OG-TUBE ×2 (17:15→21:11)
[2020-10-11 17:19] LABS: VBG Base Excess -7.9 mmol/L; VBG HCO3 19 mmol/L (22-26); VBG pCO2 49 mmHg; VBG pH 7.21 (7.32-7.43); VBG pO2 58 mmHg
[2020-10-11 17:31] LABS: Glucose, Whole Blood 155 mg/dL (60-115)
[2020-10-11 17:50] LABS: Lactic Acid 0.6 mmol/L (0.5-2.0)
[2020-10-11 18:01] LABS: Anion Gap 15 (12-20); Blood Urea Nitrogen 96 mg/dL (9-16); Calcium 7.4 mg/dL (8.4-10.2); Carbon Dioxide 21 mmol/L (22-29); Chloride 107 mmol/L (96-108); Creatinine Clr Calc Pharmacy 20.4; Estimated Glomerular Filt Rate 14; Glucose Random 188 mg/dL (60-115); Potassium 6.1 mmol/L (3.3-5.1); Sodium 137 mmol/L (135-145)
[2020-10-11 18:24] LABS: Venous Blood Gas Refer to POC result
[2020-10-11 21:11] LABS: Glucose, Whole Blood 173 mg/dL (60-115)
[2020-10-11] MEDS: Melatonin 3 MG TABLET 9 MG G-TUBE (21:11)
--- NOTE | 2020-10-11 22:45 | PC.NURSE ---
Tmax 100.4, VSS with levophed gtt. Sedated on Propofol and fentanyl, unable to follow commands, weak cough/gag, occasionally opens eyes, no tracking. Vent settings unchanged besides FIO2 to 80% during hemodialysis catheter insertion. Low u/o noted, MD aware, no BM. Bed bath given. Tube feedings stopped for high residuals. Family gave consent for hemodialysis catheter placement. Pt desatted to low 80s%, per pa at bedside, ok to put on 100%, able to titrate down.
--- NOTE | 2020-10-11 22:58 | W.PM.CCHP ---
Procedures Date of Service Date of Service: 10/11/20 Central Line Placement Right IJ: Central Line Comments: A 13 cm double-lumen hemodialysis catheter was placed under ultrasound. Postprocedural, no new pneumothorax was noted other than the previously visualized on both lungs at the apical areas. Consent for Procedure: Emergent-no informed consent obtained Time out performed: Yes Sterile Technique Used: Yes Patient placed on monitor/pulse ox: Yes MD prep: mask, gown and gloves Central line prep: Chlorhexidine scrub Local anesthesia used: lidocaine 1% Amount of anesthesia used (ml): 5 Ultrasound used for placement: Yes Central line lumen inserted: double Post procedure: sutured in place, good blood return, all ports aspirated, flushed, capped and sterile dressing applied Post procedure x-ray: tip of catheter in good position Patient tolerated procedure: well and no complications Complications: none
[2020-10-11] MEDS: fentaNYL citrate/NS 1,000 MCG/100 ML PLAST..BAG 17.5 MCG IVCONT (23:01)
[2020-10-11 23:11] LABS: Glucose, Whole Blood 198 mg/dL (60-115)
[2020-10-12] VITALS (33 sets, daily range): BP systolic 82–140; BP diastolic 43–59; PULSE 110–137; RESP 14–30; TEMP 37.5–38; O2SAT 88–95; BMI 30.2
[2020-10-12] MEDS: Ascorbic Acid 500 MG TABLET 1000 MG G-TUBE ×5 (01:25→23:58)
[2020-10-12] MEDS: 0.9 % Sodium Chloride Flush 3 ML SYRINGE IVFLUSH ×4 (01:25→23:57)
[2020-10-12] MEDS: Lactulose 20 GM/30 ML SOLUTION 30 GM OG-TUBE (01:25)
[2020-10-12] MEDS: Heparin Sodium,Porcine 5,000 UNIT/ML VIAL 5000 UNIT SUBCUT ×3 (01:26→17:07)
[2020-10-12] MEDS: Metoclopramide HCl 10 MG/2 ML VIAL 5 MG IVPUSH ×3 (01:46→19:22)
[2020-10-12] MEDS: propofoL 1,000 MG/100 ML VIAL 23.5 MG IVCONT ×7 (01:46→23:58)
[2020-10-12 01:59] LABS: Glucose, Whole Blood 137 mg/dL (60-115)
[2020-10-12] MEDS: fentaNYL citrate/NS 1,000 MCG/100 ML PLAST..BAG 17.5 MCG IVCONT ×4 (03:55→20:24)
[2020-10-12] MEDS: Piperacillin Sodium/Tazobactam 3.375 GM in 0.9 % Sodium Chloride 50 ML IV ×4 (04:19→22:45)
[2020-10-12 04:42] LABS: Glucose, Whole Blood 169 mg/dL (60-115)
[2020-10-12 05:32] LABS: VBG Base Excess -8.3 mmol/L; VBG HCO3 21 mmol/L (22-26); VBG pCO2 61 mmHg; VBG pH 7.14 (7.32-7.43); VBG pO2 62 mmHg
[2020-10-12 05:39] LABS: Basophils Absolute Auto 0.1 X10*3/uL (0.0-0.2); Basophils Percent Auto 0.1 % (0-2); Hematocrit 38.8 % (42-52); Hemoglobin 12.6 g/dl (14.0-18.0); Imm Gran Abs Auto 1.54 X10*3/uL (0.00-0.03); Imm Gran Pct Auto 4.6 % (0.0-0.4); Lymphocytes Absolute Auto 0.4 X10*3/uL (1.2-4.9); Lymphocytes Percent Auto 1.1 % (20-40); MANUAL DIFF FLAG SCAN; Mean Corpuscular HGB Conc 32.5 g/dl (31.0-36.0); Mean Corpuscular Hemoglobin 29.2 pg (27.0-33.0); Mean Corpuscular Volume 89.8 fL (80-98); Mean Platelet Volume 9.9 fL (9.4-12.4); Monocytes Absolute Auto 0.4 X10*3/uL (0.1-1.2); Monocytes Percent Auto 1.3 % (2-11); Neutrophils Absolute Auto 31.1 X10*3/uL (2.0-8.3); Neutrophils Percent Auto 92.9 % (45-73); Red Blood Count 4.32 X10*6/uL (4.60-5.80); Red Cell Distribution Width 12.5 % (11.0-16.0); SCAN SMEAR FLAG 1
[2020-10-12 05:49] LABS: Platelet Count 96 X10*3/uL (160-400)
[2020-10-12 05:50] LABS: White Blood Count 33.5 X10*3/uL (4.8-10.8)
[2020-10-12 05:55] LABS: SLIDE REVIEW VERIFIED
[2020-10-12 05:59] LABS: D Dimer 3964 NG/ML
[2020-10-12 06:11] LABS: Alanine Aminotransferase 47 U/L (0-40); Albumin Level 2.3 g/dL (3.5-5.0); Alkaline Phosphatase 90 U/L (39-117); Anion Gap 19 (12-20); Aspartate Amino Transferase 40 U/L (5-37); Bilirubin Total 2.1 mg/dL (0.0-1.0); Blood Urea Nitrogen 109 mg/dL (9-16); Calcium 7.3 mg/dL (8.4-10.2); Carbon Dioxide 22 mmol/L (22-29); Chloride 104 mmol/L (96-108); Creatinine Clr Calc Pharmacy 15.9; Estimated Glomerular Filt Rate 10; Glucose Random 184 mg/dL (60-115); Phosphorus 9.4 mg/dL (2.7-4.5); Potassium 5.8 mmol/L (3.3-5.1); Sodium 139 mmol/L (135-145); Total Protein 5.1 g/dL (6.5-8.0)
[2020-10-12 06:23] LABS: C Reactive Protein 31.89 mg/dL (< or = 0.50)
[2020-10-12 06:36] LABS: Glucose, Whole Blood 169 mg/dL (60-115)
[2020-10-12 07:19] LABS: Ferritin 6294 ng/mL (20-250)
[2020-10-12] MEDS: Alteplase Cath Clear 2 MG VIAL 1 MG INTRAARTER ×2 (07:50→07:51)
[2020-10-12] MEDS: Erythromycin Base 250 MG TABLET 500 MG OG-TUBE ×3 (08:39→20:06)
[2020-10-12] MEDS: Cholecalciferol (Vitamin D3) 25 MCG TABLET 50 MCG G-TUBE (08:39)
[2020-10-12] MEDS: Chlorhexidine Gluc Oral Rinse 15 ML MOUTHWASH BUCCAL ×3 (08:39→20:06)
[2020-10-12] MEDS: Aspirin 81 MG TAB.CHEW G-TUBE (08:39)
[2020-10-12] MEDS: methylPREDNISolone Sod Succ 125 MG/2 ML VIAL 80 MG IVPUSH ×2 (08:40→20:06)
[2020-10-12] MEDS: Thiamine HCL 200 MG/2 ML VIAL IVPUSH ×2 (08:40→20:06)
[2020-10-12] MEDS: Famotidine 20 MG TABLET G-TUBE ×2 (08:41→20:06)
[2020-10-12 08:45] LABS: Venous Blood Gas Refer to POC result
[2020-10-12] MEDS: Heparin Sodium,Porcine 1,000 UNIT/ML VIAL 3000 UNIT IV (09:18)
[2020-10-12 09:23] LABS: Glucose, Whole Blood 148 mg/dL (60-115)
[2020-10-12] MEDS: Sodium Bicarbonate 8.4% 150 MEQ in Dextrose 5 % 850 ML 75 MEQ IV ×2 (10:46→23:57)
[2020-10-12 10:52] LABS: Glucose, Whole Blood 146 mg/dL (60-115)
--- NOTE | 2020-10-12 11:12 | MHC.CLN ---
Addendum entered by Sindy Camarillo RD 10/12/20 11:28: LABS REVIEWED WITH INCREASING BUN AND Cr 10/12. HD TO BEGIN TODAY. Original Note: FOLLOW UP NOT CURRENTLY RECEIVING TUBE FEEDING DUE TO HIGH RESIDUALS. HEMODIALYSIS TO START TODAY. RESUME CURRENT TUBE FEED IF TOLERATED. FOLLOWING FOR NUTRITIONAL NEEDS.
--- NOTE | 2020-10-12 11:27 | PC.NURSE ---
Patient remains intubated, COVID (+) Receiving HD this AM. Low grade temp with tachycardia 110s. Per MD bicarb drip stopped. Titrating Levophed for fluctuating BPs, up to 0.3mcg/kg/min. At approximately 0938 HR was noted in the 190s with SBP 60s, desat to low 80s. MD called to bedside. Levophed titrated and currently sits at 0.2mcg/kg/min. Per MD, 6mg Adenosine given IVP 0950, rhythm at the time diagnosed as Afib by Dr. Zhang. 20mg IVP Nimbex given at 0951, MD advanced ETT to 28@LL. HD stopped per MD order. 300mg IVP Amiodarone given at 0953. HR with conversion pause to the 80s with immediate return to tachycardia, SR 120s at 0954. Patient noted to be incontinent of large amounts of brown loose stool. Incontinence care provided along with full bed bath and linen change. Repostioned for pressure relief, pillows used to BUEs to aid in edema relief. Oral care provided. Patient remains restrained for ETT protection. Meds continue as ordered.
[2020-10-12] MEDS: Sodium Zirconium Cyclosilicate 10 GM POWD.PACK OG-TUBE ×3 (11:51→20:07)
[2020-10-12 12:41] LABS: Glucose, Whole Blood 167 mg/dL (60-115)
[2020-10-12 12:53] LABS: HBS Num1 0.73 mIU/mL (0-7.99); ~Hepatitis B Surface Antibody NONREACTIVE (Nonreactive)
[2020-10-12 13:25] LABS: HBc Num1 0.16 S/CO (0.00-0.79); HBsAGNum1 0.18 S/CO (0.00-0.99); Hepatitis B Core Antibody Nonreactive (Nonreactive); Hepatitis B Surface Antigen Negative (Negative)
[2020-10-12 13:44] LABS: Vancomycin Random 12.9 mcg/mL (15-20)
[2020-10-12 14:25] LABS: Glucose, Whole Blood 157 mg/dL (60-115)
[2020-10-12] MEDS: Insulin Regular/NS 100 UNIT/100 ML PLAST..BAG 5.5 UNIT IVCONT (14:26)
--- NOTE | 2020-10-12 15:38 | MHC.CM.ED ---
Patient remains intubated/vented in ICU. Continue to monitor for d/c needs.
--- NOTE | 2020-10-12 16:13 | P.PNCC_ITS ---
Subjective Subjective Date of Service: 10/12/20 Interval History: Mr. Cano was transferred down to ICU on October 07 with hypoxemic respiratory failure secondary to bilat COVID pneumonia. 69-year-old male with past medical history of chronic back pain. The patient lives in [place]. He was symptomatic with what he thinks was COVID in May of 2019, but he was never tested, nor was he hospitalized. He has not had the COVID vaccine. At the end of August, he drove here to [place] to attend his father?s . Had not been feeling well since then. Very tired. Presented to the [place] ED on September 28 c/o dyspnea on exertion and dry cough. Denied fevers or diarrhea. In the ED, the Sat was 89% on room air. COVID positive, with cycle threshold 17. DDimer was 2100. CXR had questionable subtle infiltrates. CTPA chest showed mild-moderate COVID infiltrates. By my reading, PA size was borderline enlarged, RV at least top normal, and RA enlarged. The patient was admitted to Medicine and treated with Decadron, plus Zithromax x 3 days. Was also given a 5 day course of remdesivir. Venous duplex on September 29 was negative for DVT. His FiO2 escalated rapidly. On October 03, [place] [id number]. He was sent for perfusion scan which showed a segmental defect thoug ht likely related to underlying prominent hilum. He was not able to tolerate high-flow secondary to deviated septum. [place] 10[place]04[place] [id number]. BNP was only 47. PCT was 0.1. On October 07, he required escalation to CPAP, and was therefore transferred to ICU. Initial FiO2 was 60% which then escalated to 80%. His work of breathing increased and CPAP was escalated to BiPAP. The next day he was able to go onto NRBFM plus O2 nasal cannula, but he deteriorated that night and the next morn ing, so he was intubated on October 09. The post intubation CXR suggested pneumomediastinum and poss SQ emphysema. The next morning he had obvious SQ emphysema on exam, and CXR showed a 20-25% right PTX, so a right pigtail thoracostomy was placed, with near full resolution of the PTX. We also dropped his insp pressure to 14. Duplex scan on 10/08 showed a small calf vein DVT in a branch of the right peroneal vein. We kept him on Heparin 5000 u tid and added ASA. Repeat US done 10/10 was unchanged from 10/08 (ie. no progression). F/U CXR yesterday morning showed a small PTX on the lower lateral aspect of the left lung, probably less than 10%. Still had pneumomediastinum and subcutaneous emphysema. No tube was placed Two f/u CXRs showed resolution of that PTX. ECHOCARDIOGRAM done 10/10 at the bedside by the [facility], interpreted by me. Unable to obtain any parasternal or apical images. Good images from the subcostal plane. Normal LV wall thickness with normal LV function, ejection fraction at least 60%. No regional wall motion abnormalities noted. RV size is normal. RV function could not be evaluated. 1+ TR by color-flow Doppler; off axis CWD measured 2.5 m/sec. IVC measured 1.5 cm with good insp collapse. Bec of worsening renal indices and hyperkalemia, we placed a RIJ temporary hemodialysis catheter last night, and started hemodialysis this morning. Flow through the dialysis catheter was poor. At about 1-1/2 hours into dialysis, the patient went in to atrial fibrillation at a rapid rate. He dropped his blood pressure into the 60s. I gave him a bolus of amiodarone in preparation for cardioversion. While the amiodarone bolus was going in, he cardioverted spont aneously into sinus rhythm at a rate of 133, which then came down into the 120s. His blood pressure stabilized immediately. However we terminated dialysis with a plan to replace the dialysis catheter and dialyze him again tomorrow. Currently sedated on propofol @ 40ug, and fentanyl 175ug. Also on Levophed @ 0.2ug, insulin 5.5u/hr, and bicarb at 75cc/hr. Heart rate is 113, sinus rhythm. Blood pressure is 122/53. On PC rate 26, 16/10, 100%/+10, rate is 30, Vt avg 540cc, Ve 14L, PIP 30cm, ETCO2 40, Sat 91%. Central venous blood gas this morning showed 7.14/61/-8. Tmax 100.4. No JVD at 30 degrees. SQ emphysema less than yesterday, patience on the right. I pulled the RIJ temporary dialysis catheter. Abdomen is soft, benign. Residuals now less than 50 cc on Reglan and erythromycin. There is no peripheral edema. Neuro exam is nonfocal/noninteractive. LABORATORY DATA: As below. Notably, white count is down to 33. BUN/creatinine are up to 109/5.6 prior to dialysis this morning, with phos up to 9.4. Potassium was 5.8 on the bicarb and insulin drips. Bicarb was 22. T bili is up to 2.1, albumin is 2.3. D-dimer down to 3964, but ferritin is up to 6200 and CRP is up to 32. Chest x-ray this morning is read as showing a tiny pneumothorax on the left, which I am unable to find. Still has pneumomediastinum and subcutaneous emphysema. IMPRESSION: 1. Bilateral COVID pneumonia with ARDS. Now on Solu-Medrol 80 mg bid and finishing a 5 day course of ivermectin. He?s had a 5-day course of remdesivir. Also on vitamin-B, vit C, Vit D, thiamine, melatonin, and ASA. 2 Acute hypoxemic respiratory failure. Required intubation. Developed barotrauma immediately with PPV, even at low airway pressures. Poor prognostic sign. Continuing to hold on left thoracostomy and watching the CXR. Since he?s requiring 100% FiO2, we?ll repeat the CXR now. 3. Acute kidney injury. Further marked increase in his indices yest afternoon and today. Without question needs dialysis. We?ll put a femoral catheter in [facility] and dialyze him again tomorrow morning. 4. Markedly elevated D-dimer. Dramatic decrease with ivermectin and aspirin, FWIW. Has small calf DVT. Cannot rule out pulmonary micro-VTE. Normal troponin and BNP rule out significant PE, for all intents and purposes. If he has dialysis clotting problems with the new catheter tomorrow, we?ll increase the heparin to 7500u tid. Continuing with aspirin. 5. ID: White count coming down after switching doxycycline to Zosyn and vanco. Cultures negative so far. Sputum Gram Stain not very impressive, only 1+ polys. 6. Thrombocytopenia: ? Chronic. Nothing to do. 7. Metabolic. On loKelma, bicarb, and insulin. And we?ll start dialysis in earnest tomorrow. Recheck BMP now. 8. Hyperglycemia. 2? steroids. On insulin drip. 9. Nutrition: At least mild if not moderate protein calorie malnutrition. Residuals down, restarting tube feeds. D/W Dr. Gaitan twice today. Updated daughter AJ by telephone on today?s events. Critical care time (excluding procedures): 90 minutes Critical Care Time (minutes): 90 Physical Exam Vital Signs: Vital Signs: Last Vital Signs Temp 100.2 F 10/12/20 15:55 Pulse 118 H 10/12/20 15:55 Resp 19 10/12/20 15:55 BP 129/55 L 10/12/20 15:55 Pulse Ox 93 10/12/20 15:55 Body Mass Index 30.2 Objective Data Labs CBC & Chem 7: 10/12/20 05:30 10/12/20 05:30 Labs: Laboratory Results - last 24 hr 10/11/20 10/11/20 10/11/20 17:10 17:15 17:16 WBC RBC Hgb Hct MCV MCH MCHC RDW Plt Count MPV Immature Gran % (Auto) Neut % (Auto) Lymph % (Auto) [place] % (Auto) Eos % (Auto) Baso % (Auto) Lymph # (Auto) [place] # (Auto) Eos # (Auto) Baso # (Auto) Abs Immat Gran (auto) Absolute Neuts (auto) Absolute Nucleated RBC Nucleated RBC % (auto) Smear Tech's Comments D-Dimer VBG pH 7.21 L VBG pCO2 49 VBG pO2 58 VBG HCO3 19 L VBG O2 Saturation 88.0 VBG Base Excess -7.9 Sodium 137 Potassium 6.1 H* Chloride 107 Carbon Dioxide 21 L Anion Gap 15 BUN 96 H* Creatinine 4.30 H* Estim Creat Clear Calc 20.4 Estimated GFR 14 POC Glucose Random Glucose 188 H Lactic Acid 0.6 Calcium 7.4 L Phosphorus Ferritin Total Bilirubin AST ALT Alkaline Phosphatase C-Reactive Protein Total Protein Albumin Random Vancomycin Hep Bs Antigen Hep Bs Antibody Hep B Core Total Ab 10/11/20 10/11/20 10/11/20 17:26 21:05 23:04 WBC RBC Hgb Hct MCV MCH MCHC RDW Plt Count MPV Immature Gran % (Auto) Neut % (Auto) Lymph % (Auto) [place] % (Auto) Eos % (Auto) Baso % (Auto) Lymph # (Auto) [place] # (Auto) Eos # (Auto) Baso # (Auto) Abs Immat Gran (auto) Absolute Neuts (auto) Absolute Nucleated RBC Nucleated RBC % (auto) Smear Tech's Comments D-Dimer VBG pH VBG pCO2 VBG pO2 VBG HCO3 VBG O2 Saturation VBG Base Excess Sodium Potassium Chloride Carbon Dioxide Anion Gap BUN Creatinine Estim Creat Clear Calc Estimated GFR POC Glucose 155 H 173 H 198 H Random Glucose Lactic Acid Calcium Phosphorus Ferritin Total Bilirubin AST ALT Alkaline Phosphatase C-Reactive Protein Total Protein Albumin Random Vancomycin Hep Bs Antigen Hep Bs Antibody Hep B Core Total Ab 10/12/20 10/12/20 10/12/20 01:31 03:59 05:24 WBC RBC Hgb Hct MCV MCH MCHC RDW Plt Count MPV Immature Gran % (Auto) Neut % (Auto) Lymph % (Auto) [place] % (Auto) Eos % (Auto) Baso % (Auto) Lymph # (Auto) [place] # (Auto) Eos # (Auto) Baso # (Auto) Abs Immat Gran (auto) Absolute Neuts (auto) Absolute Nucleated RBC Nucleated RBC % (auto) Smear Tech's Comments D-Dimer VBG pH 7.14 L* VBG pCO2 61 VBG pO2 62 VBG HCO3 21 L VBG O2 Saturation 86.0 VBG Base Excess -8.3 Sodium Potassium Chloride Carbon Dioxide Anion Gap BUN Creatinine Estim Creat Clear Calc Estimated GFR POC Glucose 137 H 169 H Random Glucose Lactic Acid Calcium Phosphorus Ferritin Total Bilirubin AST ALT Alkaline Phosphatase C-Reactive Protein Total Protein Albumin Random Vancomycin Hep Bs Antigen Hep Bs Antibody Hep B Core Total Ab 10/12/20 10/12/20 10/12/20 05:30 05:30 05:30 WBC 33.5 H* RBC 4.32 L Hgb 12.6 L Hct 38.8 L MCV 89.8 MCH 29.2 MCHC 32.5 RDW 12.5 Plt Count 96 L MPV 9.9 Immature Gran % (Auto) 4.6 H Neut % (Auto) 92.9 H Lymph % (Auto) 1.1 L [place] % (Auto) 1.3 L Eos % (Auto) 0.0 Baso % (Auto) 0.1 Lymph # (Auto) 0.4 L [place] # (Auto) 0.4 Eos # (Auto) 0.0 Baso # (Auto) 0.1 Abs Immat Gran (auto) 1.54 H Absolute Neuts (auto) 31.1 H Absolute Nucleated RBC 0.000 Nucleated RBC % (auto) 0.0 Smear Tech's Comments VERIFIED D-Dimer 3964 VBG pH VBG pCO2 VBG pO2 VBG HCO3 VBG O2 Saturation VBG Base Excess Sodium 139 Potassium 5.8 H Chloride 104 Carbon Dioxide 22 Anion Gap 19 BUN 109 H* Creatinine 5.68 H* Estim Creat Clear Calc 15.9 Estimated GFR 10 POC Glucose Random Glucose 184 H Lactic Acid Calcium 7.3 L Phosphorus 9.4 H Ferritin 6294 H Total Bilirubin 2.1 H AST 40 H ALT 47 H Alkaline Phosphatase 90 C-Reactive Protein 31.89 H Total Protein 5.1 L Albumin 2.3 L Random Vancomycin Hep Bs Antigen Hep Bs Antibody Hep B Core Total Ab 10/12/20 10/12/20 10/12/20 05:43 08:52 10:43 WBC RBC Hgb Hct MCV MCH MCHC RDW Plt Count MPV Immature Gran % (Auto) Neut % (Auto) Lymph % (Auto) [place] % (Auto) Eos % (Auto) Baso % (Auto) Lymph # (Auto) [place] # (Auto) Eos # (Auto) Baso # (Auto) Abs Immat Gran (auto) Absolute Neuts (auto) Absolute Nucleated RBC Nucleated RBC % (auto) Smear Tech's Comments D-Dimer VBG pH VBG pCO2 VBG pO2 VBG HCO3 VBG O2 Saturation VBG Base Excess Sodium Potassium Chloride Carbon Dioxide Anion Gap BUN Creatinine Estim Creat Clear Calc Estimated GFR POC Glucose 169 H 148 H 146 H Random Glucose Lactic Acid Calcium Phosphorus Ferritin Total Bilirubin AST ALT Alkaline Phosphatase C-Reactive Protein Total Protein Albumin Random Vancomycin Hep Bs Antigen Hep Bs Antibody Hep B Core Total Ab 10/12/20 10/12/20 10/12/20 11:57 12:05 12:52 WBC RBC Hgb Hct MCV MCH MCHC RDW Plt Count MPV Immature Gran % (Auto) Neut % (Auto) Lymph % (Auto) [place] % (Auto) Eos % (Auto) Baso % (Auto) Lymph # (Auto) [place] # (Auto) Eos # (Auto) Baso # (Auto) Abs Immat Gran (auto) Absolute Neuts (auto) Absolute Nucleated RBC Nucleated RBC % (auto) Smear Tech's Comments D-Dimer VBG pH VBG pCO2 VBG pO2 VBG HCO3 VBG O2 Saturation VBG Base Excess Sodium Potassium Chloride Carbon Dioxide Anion Gap BUN Creatinine Estim Creat Clear Calc Estimated GFR POC Glucose 167 H Random Glucose Lactic Acid Calcium Phosphorus Ferritin Total Bilirubin AST ALT Alkaline Phosphatase C-Reactive Protein Total Protein Albumin Random Vancomycin 12.9 L Hep Bs Antigen Negative Hep Bs Antibody NONREACTIVE Hep B Core Total Ab Nonreactive 10/12/20 14:17 WBC RBC Hgb Hct MCV MCH MCHC RDW Plt Count MPV Immature Gran % (Auto) Neut % (Auto) Lymph % (Auto) [place] % (Auto) Eos % (Auto) Baso % (Auto) Lymph # (Auto) [place] # (Auto) Eos # (Auto) Baso # (Auto) Abs Immat Gran (auto) Absolute Neuts (auto) Absolute Nucleated RBC Nucleated RBC % (auto) Smear Tech's Comments D-Dimer VBG pH VBG pCO2 VBG pO2 VBG HCO3 VBG O2 Saturation VBG Base Excess Sodium Potassium Chloride Carbon Dioxide Anion Gap BUN Creatinine Estim Creat Clear Calc Estimated GFR POC Glucose 157 H Random Glucose Lactic Acid Calcium Phosphorus Ferritin Total Bilirubin AST ALT Alkaline Phosphatase C-Reactive Protein Total Protein Albumin Random Vancomycin Hep Bs Antigen Hep Bs Antibody Hep B Core Total Ab Microbiology Microbiology Results: Microbiology 10/11/20 23:11 Sputum - Suctioned Gram Stain - Final 10/09/20 16:35 Blood - Venous Blood Culture - Preliminary No growth after 48 hours. 10/09/20 16:35 Blood - Venous Blood Culture - Preliminary No growth after 48 hours. 10/01/20 09:02 Blood - Venous Blood Culture - Final No growth after 5 days. 10/01/20 09:09 Blood - Venous Blood Culture - Final No growth after 5 days. Quality Stroke Does the patient have a stroke diagnosis?: No VTE Prior VTE?: No VTE Risk Level:: Medical - moderate - high VTE Device Contraindication: Treatment Not Indicated VTE Drug Contraindication: N/A - Med Ordered Critical Care Time Critical Care Time (minutes): 90
[2020-10-12 17:18] LABS: Glucose, Whole Blood 134 mg/dL (60-115)
[2020-10-12 17:50] LABS: Procalcitonin 2.78 ng/mL
[2020-10-12 18:18] LABS: Glucose, Whole Blood 147 mg/dL (60-115)
--- NOTE | 2020-10-12 18:22 | PC.NURSE ---
Since this AM incident of extreme tachy with hypotension Afib, patient has remained tachycardic but in SR. BP has remained stable on Levophed at 0.2mcg/kg/min. Sedation unchanged, Fentanyl and Propofol, see MAR. Two large loose stools this shift. Meds as ordered and tube feeds restarted. Bicarb drip infusing as ordered. Insulin drip titrated per drip protocol.Right IJ dialysis catheter removed today by Dr. Zhang. No complications, site with Xeroform and gauze covered with Tegaderm. Vent settings unchanged all day, PC 26, with FiO2 at 100%, Pi 16, PEEP 10. Min volumes between 12-16. EtCO2 max 51. Md and RT aware. Lungs with exp/insp shonchi throughout, no secretions inline. Minimal oral secretions, scant pink tinge. Chest tube to Right pectoral area, DSG clean/dry/intact. (+) surrounding crepitus Anuric as of this morning, only having put out 20mL this shift. Left IJ TLC intact, white port open for use. Per MD, HD to be done 10/13 once HD cath placed tonight by [facility].
--- NOTE | 2020-10-12 19:22 | PM.PNNEP ---
Assessment & Plan Time Spent With Patient Time: 1. JANA due to Acute tubular injury in the setting of COVID-19/ Sepsis Pt is Oliguric 2. Hyperkalemia 3. Bilateral COVID pneumonia with ARDS. 4. resp Failure Had HD today Poor flows D/w Dr. Zhang - New Line will be placed for HD again in AM May need Daily HD F/u K CardioPul support Continue COVID Rx thx Will Follow Dr. Gaitan Total time spent is greater than 50% in coordination of care (as documented) at patient's floor/unit and/or counseling patient: Subjective Subjective Date of Service: 10/12/20 Interval history: Pt on covid isolation K is better Ad TPA placed in the HD line due to poor flows Had 1.5 hrs HD today Physical Exam Vital Signs: Vital Signs: Last Vital Signs Temp 100.0 F 10/12/20 19:00 Pulse 116 H 10/12/20 19:00 Resp 26 H 10/12/20 19:00 BP 138/53 L 10/12/20 19:00 Pulse Ox 93 10/12/20 19:00 Body Mass Index 30.2 Intubated On COVID Isolation - Exma not dome Objective Data Labs CBC & Chem 7: 10/12/20 05:30 10/12/20 05:30 Labs: Laboratory Results - last 24 hr 10/11/20 10/11/20 10/12/20 21:05 23:04 01:31 WBC RBC Hgb Hct MCV MCH MCHC RDW Plt Count MPV Immature Gran % (Auto) Neut % (Auto) Lymph % (Auto) [place] % (Auto) Eos % (Auto) Baso % (Auto) Lymph # (Auto) [place] # (Auto) Eos # (Auto) Baso # (Auto) Abs Immat Gran (auto) Absolute Neuts (auto) Absolute Nucleated RBC Nucleated RBC % (auto) Smear Tech's Comments D-Dimer VBG pH VBG pCO2 VBG pO2 VBG HCO3 VBG O2 Saturation VBG Base Excess Sodium Potassium Chloride Carbon Dioxide Anion Gap BUN Creatinine Estim Creat Clear Calc Estimated GFR POC Glucose 173 H 198 H 137 H Random Glucose Calcium Phosphorus Ferritin Total Bilirubin AST ALT Alkaline Phosphatase C-Reactive Protein Total Protein Albumin Procalcitonin Random Vancomycin Hep Bs Antigen Hep Bs Antibody Hep B Core Total Ab 10/12/20 10/12/20 10/12/20 03:59 05:24 05:30 WBC 33.5 H* RBC 4.32 L Hgb 12.6 L Hct 38.8 L MCV 89.8 MCH 29.2 MCHC 32.5 RDW 12.5 Plt Count 96 L MPV 9.9 Immature Gran % (Auto) 4.6 H Neut % (Auto) 92.9 H Lymph % (Auto) 1.1 L [place] % (Auto) 1.3 L Eos % (Auto) 0.0 Baso % (Auto) 0.1 Lymph # (Auto) 0.4 L [place] # (Auto) 0.4 Eos # (Auto) 0.0 Baso # (Auto) 0.1 Abs Immat Gran (auto) 1.54 H Absolute Neuts (auto) 31.1 H Absolute Nucleated RBC 0.000 Nucleated RBC % (auto) 0.0 Smear Tech's Comments VERIFIED D-Dimer VBG pH 7.14 L* VBG pCO2 61 VBG pO2 62 VBG HCO3 21 L VBG O2 Saturation 86.0 VBG Base Excess -8.3 Sodium Potassium Chloride Carbon Dioxide Anion Gap BUN Creatinine Estim Creat Clear Calc Estimated GFR POC Glucose 169 H Random Glucose Calcium Phosphorus Ferritin Total Bilirubin AST ALT Alkaline Phosphatase C-Reactive Protein Total Protein Albumin Procalcitonin Random Vancomycin Hep Bs Antigen Hep Bs Antibody Hep B Core Total Ab 10/12/20 10/12/20 10/12/20 05:30 05:30 05:30 WBC RBC Hgb Hct MCV MCH MCHC RDW Plt Count MPV Immature Gran % (Auto) Neut % (Auto) Lymph % (Auto) [place] % (Auto) Eos % (Auto) Baso % (Auto) Lymph # (Auto) [place] # (Auto) Eos # (Auto) Baso # (Auto) Abs Immat Gran (auto) Absolute Neuts (auto) Absolute Nucleated RBC Nucleated RBC % (auto) Smear Tech's Comments D-Dimer 3964 VBG pH VBG pCO2 VBG pO2 VBG HCO3 VBG O2 Saturation VBG Base Excess Sodium 139 Potassium 5.8 H Chloride 104 Carbon Dioxide 22 Anion Gap 19 BUN 109 H* Creatinine 5.68 H* Estim Creat Clear Calc 15.9 Estimated GFR 10 POC Glucose Random Glucose 184 H Calcium 7.3 L Phosphorus 9.4 H Ferritin 6294 H Total Bilirubin 2.1 H AST 40 H ALT 47 H Alkaline Phosphatase 90 C-Reactive Protein 31.89 H Total Protein 5.1 L Albumin 2.3 L Procalcitonin 2.78 Random Vancomycin Hep Bs Antigen Hep Bs Antibody Hep B Core Total Ab 10/12/20 10/12/20 10/12/20 05:43 08:52 10:43 WBC RBC Hgb Hct MCV MCH MCHC RDW Plt Count MPV Immature Gran % (Auto) Neut % (Auto) Lymph % (Auto) [place] % (Auto) Eos % (Auto) Baso % (Auto) Lymph # (Auto) [place] # (Auto) Eos # (Auto) Baso # (Auto) Abs Immat Gran (auto) Absolute Neuts (auto) Absolute Nucleated RBC Nucleated RBC % (auto) Smear Tech's Comments D-Dimer VBG pH VBG pCO2 VBG pO2 VBG HCO3 VBG O2 Saturation VBG Base Excess Sodium Potassium Chloride Carbon Dioxide Anion Gap BUN Creatinine Estim Creat Clear Calc Estimated GFR POC Glucose 169 H 148 H 146 H Random Glucose Calcium Phosphorus Ferritin Total Bilirubin AST ALT Alkaline Phosphatase C-Reactive Protein Total Protein Albumin Procalcitonin Random Vancomycin Hep Bs Antigen Hep Bs Antibody Hep B Core Total Ab 10/12/20 10/12/20 10/12/20 11:57 12:05 12:52 WBC RBC Hgb Hct MCV MCH MCHC RDW Plt Count MPV Immature Gran % (Auto) Neut % (Auto) Lymph % (Auto) [place] % (Auto) Eos % (Auto) Baso % (Auto) Lymph # (Auto) [place] # (Auto) Eos # (Auto) Baso # (Auto) Abs Immat Gran (auto) Absolute Neuts (auto) Absolute Nucleated RBC Nucleated RBC % (auto) Smear Tech's Comments D-Dimer VBG pH VBG pCO2 VBG pO2 VBG HCO3 VBG O2 Saturation VBG Base Excess Sodium Potassium Chloride Carbon Dioxide Anion Gap BUN Creatinine Estim Creat Clear Calc Estimated GFR POC Glucose 167 H Random Glucose Calcium Phosphorus Ferritin Total Bilirubin AST ALT Alkaline Phosphatase C-Reactive Protein Total Protein Albumin Procalcitonin Random Vancomycin 12.9 L Hep Bs Antigen Negative Hep Bs Antibody NONREACTIVE Hep B Core Total Ab Nonreactive 10/12/20 10/12/20 10/12/20 14:17 17:05 18:12 WBC RBC Hgb Hct MCV MCH MCHC RDW Plt Count MPV Immature Gran % (Auto) Neut % (Auto) Lymph % (Auto) [place] % (Auto) Eos % (Auto) Baso % (Auto) Lymph # (Auto) [place] # (Auto) Eos # (Auto) Baso # (Auto) Abs Immat Gran (auto) Absolute Neuts (auto) Absolute Nucleated RBC Nucleated RBC % (auto) Smear Tech's Comments D-Dimer VBG pH VBG pCO2 VBG pO2 VBG HCO3 VBG O2 Saturation VBG Base Excess Sodium Potassium Chloride Carbon Dioxide Anion Gap BUN Creatinine Estim Creat Clear Calc Estimated GFR POC Glucose 157 H 134 H 147 H Random Glucose Calcium Phosphorus Ferritin Total Bilirubin AST ALT Alkaline Phosphatase C-Reactive Protein Total Protein Albumin Procalcitonin Random Vancomycin Hep Bs Antigen Hep Bs Antibody Hep B Core Total Ab Microbiology Microbiology Results: Microbiology 10/11/20 23:11 Sputum - Suctioned Gram Stain - Final 10/09/20 16:35 Blood - Venous Blood Culture - Preliminary No growth after 48 hours. 10/09/20 16:35 Blood - Venous Blood Culture - Preliminary No growth after 48 hours. 10/01/20 09:02 Blood - Venous Blood Culture - Final No growth after 5 days. 10/01/20 09:09 Blood - Venous Blood Culture - Final No growth after 5 days. Procedures Date of Service Date of Service: 10/12/20 Progress Note: Quality Stroke Does the patient have a stroke diagnosis?: No
[2020-10-12 19:47] LABS: Anion Gap 21 (12-20); Blood Urea Nitrogen 98 mg/dL (9-16); Carbon Dioxide 23 mmol/L (22-29); Chloride 100 mmol/L (96-108); Creatinine Clr Calc Pharmacy 14.9; Estimated Glomerular Filt Rate 9; Glucose Random 154 mg/dL (60-115); Potassium 5.8 mmol/L (3.3-5.1); Sodium 138 mmol/L (135-145)
[2020-10-12] MEDS: Melatonin 3 MG TABLET 9 MG G-TUBE (20:06)
[2020-10-12 20:26] LABS: Glucose, Whole Blood 148 mg/dL (60-115)
--- NOTE | 2020-10-12 22:06 | W.PM.CCHP ---
Procedures Date of Service Date of Service: 10/12/20 Central Line Placement Right Femoral: Consent for Procedure: Emergent-no informed consent obtained Time out performed: Yes Sterile Technique Used: Yes Patient placed on monitor/pulse ox: Yes prep: mask, gown, gloves and other Ultrasound used for placement: Yes Central line lumen inserted: double (20 cm HD cath) Post procedure: sutured in place, good blood return, all ports aspirated, flushed, capped and sterile dressing applied Post procedure x-ray: tip of catheter in good position and other (NO FREE AIR IN THE GROIN OR ABDOMEN) Patient tolerated procedure: well Complications: none
--- NOTE | 2020-10-12 22:17 | W.MHC.ACPN ---
Advanced Care Planning Note Advanced Care Planning Note Time spent (in minutes): 45 Problems Discussed (1) SARS-CoV-2 positive:
[2020-10-12] MEDS: bisacodyL 10 MG SUPP.RECT PR (22:45)
[2020-10-12 22:56] LABS: Glucose, Whole Blood 148 mg/dL (60-115)
[2020-10-13] VITALS (42 sets, daily range): BP systolic 77–144; BP diastolic 41–60; PULSE 97–168; RESP 15–28; TEMP 36.1–37.5; O2SAT 87–95; BMI 30.8
[2020-10-13] MEDS: Heparin Sodium,Porcine 5,000 UNIT/ML VIAL 5000 UNIT SUBCUT ×2 (01:05→09:47)
[2020-10-13 01:13] LABS: Glucose, Whole Blood 138 mg/dL (60-115)
[2020-10-13] MEDS: fentaNYL citrate/NS 1,000 MCG/100 ML PLAST..BAG 15 MCG IVCONT ×4 (03:02→22:42)
[2020-10-13] MEDS: propofoL 1,000 MG/100 ML VIAL 23.5 MG IVCONT ×5 (03:03→18:23)
[2020-10-13] MEDS: Metoclopramide HCl 10 MG/2 ML VIAL 5 MG IVPUSH ×3 (03:03→18:22)
[2020-10-13 03:23] LABS: Glucose, Whole Blood 135 mg/dL (60-115)
[2020-10-13] MEDS: Metoprolol Tartrate 5 MG/5 ML VIAL IVPUSH ×2 (05:13→05:45)
[2020-10-13] MEDS: Piperacillin Sodium/Tazobactam 3.375 GM in 0.9 % Sodium Chloride 50 ML IV ×4 (05:24→22:42)
[2020-10-13] MEDS: Ascorbic Acid 500 MG TABLET 1000 MG G-TUBE ×4 (05:24→23:32)
[2020-10-13] MEDS: Insulin Regular, Human 100 UNIT/ML 3 ML VIAL 10 UNIT IVPUSH (05:25)
[2020-10-13 05:29] LABS: VBG Base Excess -5.7 mmol/L; VBG HCO3 23 mmol/L (22-26); VBG pCO2 66 mmHg; VBG pH 7.16 (7.32-7.43); VBG pO2 63 mmHg
[2020-10-13 05:35] LABS: Hemoglobin 11.5 g/dl (14.0-18.0); Mean Corpuscular HGB Conc 32.9 g/dl (31.0-36.0); Mean Corpuscular Hemoglobin 29.1 pg (27.0-33.0); Mean Corpuscular Volume 88.6 fL (80-98); Mean Platelet Volume 10.1 fL (9.4-12.4); Red Blood Count 3.95 X10*6/uL (4.60-5.80); Red Cell Distribution Width 12.9 % (11.0-16.0)
[2020-10-13] MEDS: Adenosine 6 MG/2 ML VIAL 12 MG IVPUSH (05:35)
[2020-10-13 05:44] LABS: Platelet Count 80 X10*3/uL (160-400)
[2020-10-13 05:46] LABS: White Blood Count 30.7 X10*3/uL (4.8-10.8)
[2020-10-13 05:56] LABS: Lactic Acid 0.9 mmol/L (0.5-2.0)
[2020-10-13] MEDS: Amiodarone HCL 900 MG in 0.9 % Sodium Chloride 500 ML 34.53 MG IVCONT (05:58)
[2020-10-13 06:02] LABS: B Type Natriuretic Peptide 181 pg/mL (<100)
[2020-10-13 06:03] LABS: Alanine Aminotransferase 50 U/L (0-40); Alkaline Phosphatase 99 U/L (39-117); Anion Gap 22 (12-20); Aspartate Amino Transferase 52 U/L (5-37); Bilirubin Total 2.5 mg/dL (0.0-1.0); Blood Urea Nitrogen 108 mg/dL (9-16); Calcium 6.6 mg/dL (8.4-10.2); Carbon Dioxide 24 mmol/L (22-29); Chloride 98 mmol/L (96-108); Estimated Glomerular Filt Rate 9; Glucose Random 132 mg/dL (60-115); Magnesium 2.7 mg/dL (1.6-2.6); Phosphorus 11.3 mg/dL (2.7-4.5); Potassium 5.6 mmol/L (3.3-5.1); Sodium 138 mmol/L (135-145); Total Protein 4.5 g/dL (6.5-8.0)
[2020-10-13 06:13] LABS: Venous Blood Gas Refer to POC result
[2020-10-13 06:36] LABS: Glucose, Whole Blood 123 mg/dL (60-115)
[2020-10-13] MEDS: dilTIAZem HCL 125 MG in 0.9 % Sodium Chloride 100 ML 10 MG IVCONT ×2 (06:40→17:29)
--- NOTE | 2020-10-13 06:49 | P.PNCC_ITS ---
Critical Care Event Note Summary Date of Service: 10/13/20 Code activated: No Narrative: This case had a high probability of a clinically significant, sudden, or life threatening deterioration of this patient's condition which required my full and direct attention, intervention and personal management. Critical Care Time (minutes): 90 Comment: At 5:10 a.m., I was notified by the nurse that the patient went into SVT with heart rate between 140 and 150 beats per minute. Clearly these appears to be narrow complex tachycardia. Laboratories to be drawn. Physical exam The patient is hemodynamically stable and holding a blood pressure above 120. Respiration rate 15, O2 sat 90%; end-tidal CO2 is 39. Generally sedated Skin good perfusion, Cardiac tachycardic 140 beats per minute, on the monitor appears SVT. Coarse lung sounds bilaterally Extremity is mildly edematous. Femoral hemodialysis catheter on the right clean, dry intact surroundings. No asymmetry of the legs, no edema noted. Laboratories pending. Assessment plan SVT with heart rate between 140 and 150. Chest x-ray ordered, there is no new tension pneumothorax. Potassium is 5.6. Blood sugar 120. I suspect underlying hyperkalemia given the patient renal issues. Hypoglycemia has been ruled out, he certainly acidotic and he is on a bicarb drip. Lopressor 5 mg IV x2 given. It is slow him down for sure. Time but unfortunately he goes back into SVT, remains hemodynamically stable. Adenosine 6 mg followed by 12 mg dose given, there was pauses and bradycardia for a few seconds but goes back into SVT. Patient remains hemodynamically stable. Amiodarone 150 mg IV x1 given, during this time, the heart rate slowed down to 110. Amiodarone drip at 1 milligram/hour started. After about 20 minutes or so, the patient became hypotensive despite of being on pressors with the lowest blood pressure in the mid 70s systolic. Heart rate continues to be about 120 beats per minute and is consistent with SVT although for a short period of time I do believe that I saw atrial fibrillation. Hemodialysis was put on hold at this point. Is likely that the patient will need cardioversion given his hemodynamic instability. I discussed all the above with the patient's son and revisited code status, he sustains his desire to have the patient be full code. Time-out was done at 6:15 a.m. defibrillation pads placed. 618 am patient shocked with 120 joules, heart rate 120, blood pressure 81/48 619 am2nd shock with 150 joules heart rate 116, blood pressure 81/48. 621 am 3 shock at 200 joules, heart rate 120 blood pressure of 87/54. An amp of bicarb given. Heart rate 133, blood pressure 111/56. At this point I given Cardizem 10 mg IV given that amiodarone and shock does not seem to be working and we will take advantage of his elevated blood pressure. This seemed to work and brought the heart rate to 94 beats per minute appears atrial fibrillation, heart rate anywhere between 78 and 90. Blood pressure of 126/50. 626 am Second dose of Cardizem 10 mg IV given . Patient remains hemodynamically stable, his rhythm is underlying atrial fibrillation, blood pressure 121/52, heart rate 102 O2 sat 93%. I will start the patient on a Cardizem drip and discontinue amiodarone. Patient may need dialysis in the presence of a physician in case he deter iorates. Case was discussed in detail with Dr. Zhang. He is aware of all the above as well as the plan of care for this patient. Critical care time 90 minutes.
[2020-10-13 07:11] LABS: Glucose, Whole Blood 184 mg/dL (60-115)
[2020-10-13] MEDS: Aspirin 81 MG TAB.CHEW G-TUBE (07:38)
[2020-10-13] MEDS: Thiamine HCL 200 MG/2 ML VIAL IVPUSH ×2 (07:38→20:47)
[2020-10-13] MEDS: MannitoL 12.5 GM/50 ML VIAL IV (07:38)
[2020-10-13] MEDS: Chlorhexidine Gluc Oral Rinse 15 ML MOUTHWASH BUCCAL ×3 (07:38→20:47)
[2020-10-13] MEDS: Famotidine 20 MG TABLET G-TUBE ×2 (07:38→20:47)
[2020-10-13] MEDS: methylPREDNISolone Sod Succ 125 MG/2 ML VIAL 80 MG IVPUSH ×2 (07:38→20:47)
[2020-10-13] MEDS: Erythromycin Base 250 MG TABLET 500 MG OG-TUBE ×3 (07:38→20:47)
[2020-10-13] MEDS: Cholecalciferol (Vitamin D3) 25 MCG TABLET 50 MCG G-TUBE (07:39)
[2020-10-13] MEDS: 0.9 % Sodium Chloride Flush 3 ML SYRINGE IVFLUSH ×3 (07:39→23:32)
--- NOTE | 2020-10-13 07:55 | PC.NURSE ---
0510 Patient with heart rate between 140-150, MONTSERRAT Mcduffie notified. Please see EMAR for medication administration times and corresponding vital signs. Event Note written by MONTSERRAT Mcduffie provides timeline of events.
[2020-10-13] MEDS: Sodium Zirconium Cyclosilicate 10 GM POWD.PACK OG-TUBE ×3 (09:47→20:49)
[2020-10-13] MEDS: Insulin Regular/NS 100 UNIT/100 ML PLAST..BAG IVCONT (09:48)
[2020-10-13 09:51] LABS: Glucose, Whole Blood 191 mg/dL (60-115)
--- NOTE | 2020-10-13 10:32 | PC.NURSE ---
Addendum entered by Keturah Gaffney RN 10/13/20 17:44: DIALYSIS WAS TOLERATED FAIRLY WELL. HR 120-140S, REMAINED IN AFIB. SBP IN 80S AT THE END OF DIALYSIS, LEVOPHED GTT AT MAX DOSE. WAS ABLE TO TITRATE DOWN GTT ONCE DIALYSIS WAS COMPLETE. DIALYSIS REMOVED 500 ML. AFEBRILE. VSS WITH LEVOPHED AND CARDIZEM. HR 100 - 140S. REMAINS ON FENTANYL AND PROPOFOL, SEE EMAR. NO COUGH OR GAG NOTED. PUPILS 2MM AND SLUGGISH. VENT SETTINGS REMAIN: PC 16/10 RATE 26 FI02 100% ETT HAD TO BE ADJUSTED BY RT X 2 TO PUT BACK AT 28 AT THE LIP. LS DIMINISHED THROUGHOUT. CREPITUS NOTED TO BILATERAL UPPER CHEST AND NECK, L > R. MD AWARE. CHEST TUBE OUTPUT THIS SHIFT = 120 ML SERISANGUINEOUS DRAINAGE. SITE C/D/I. TUBE FEEDS RESUMED PER MD POST DIALYSIS. NEPRO AT 20 ML/HR. WILL PASS ONTO INCOMING SHIFT TO INCREASE Q4HR BY 10 ML TO MAX OF 50 ML/HR. FARMER OUTPUT = 35 ML OF CLOUDY W/ SEDIMENT NOTED. IRRIGATED WHEN SEDIMENT APPEARED TO BLOCK FLOW TO URIMETER. NO BM THIS SHIFT. LARGE EXTERNAL HEMORRHOIDS NOTED. INSULIN GTT CONTINUED WITH POC Q2HR. CURRENTLY AT 4 UNITS/HR. BATHED, BARRIER CREAM, Q2HR REPO, PREVALON UTILIZED WITH WEDGES AND PILLOWS, HEELBOS ON. Original Note: CARDIZEM PAUSED AT 0913 PER MD. SET UP FOR BEDSIDE CARDIOVERSION. AMIODARONE 150MG IV BOLUS ADMINISTERED AT 0921 AND COMPLETED OVER 10 MINUTES. PT ATTACHED TO ZOLL, PACER PADS IN POSITION PER MD. 0935: SYNC SHOCK 200J - REMAINS AFIB HR 110 0936: SYNC SHOCK 200J - REMAIN AFIB HR 118 RESTARTED CARDIZEM 10 MG/HR (PREVIOUS SETTING) PER MD AT 0938. WILL CONTINUE TO MONITOR. TLC DRESSING CHANGED PER MDS REQUEST.
[2020-10-13 11:04] LABS: Glucose, Whole Blood 169 mg/dL (60-115)
--- NOTE | 2020-10-13 11:18 | P.PNCC_ITS ---
Subjective Subjective Date of Service: 10/13/20 Interval History: Mr. Cano was transferred to ICU on October 07 with hypoxemic respiratory failure secondary to bilat COVID pneumonia. 69-year-old male with past medical history of chronic back pain. The patient lives in [place]. He was symptomatic with what he thinks was COVID in May of 2019, but he was never tested, nor was he hospitalized. He has not had the COVID vaccine. At the end of August, he drove here to [place] to attend his father?s . Had not been feeling well since then. Very tired. Presented to the [facility] ED on September 28 c/o dyspnea on exertion and dry cough. Denied fevers or diarrhea. In the ED, the Sat was 89% on room air. COVID positive, with cycle threshold 17. DDimer was 2100. CXR had questionable subtle infiltrates. CTPA chest showed mild-moderate COVID infiltrates. By my reading, PA size was borderline enlarged, RV at least top normal, and RA enlarged. The patient was admitted to Medicine and treated with Decadron, plus Zithromax x 3 days. Was also given a 5 day course of remdesivir. Venous duplex on September 29 was negative for DVT. His FiO2 escalated rapidly. On October 03, [place] [address]. He was sent for perfusion scan which showed a segmental defect thought likely related to underlying prominent hilum. He was not able to tolerate high-flow secondary to deviated septum. [place] 10[place]04[place] [address]. BNP was only 47. PCT was 0.1. On October 07, he required escalation to CPAP, and was therefore transferred to ICU. Initial FiO2 was 60% which then escalated to 80%. His work of breathing increased and CPAP was escalated to BiPAP. The next day he was able to go onto NRBFM plus O2 nasal cannula, but he deteriorated that night and the next morning, and was intubated on October 09. The post intubation CXR suggested pneumomediastinum and poss SQ emphysema. The next morning he had obvious SQ emphysema on exam, and CXR showed a 20-25% right PTX. A right pigtail thoracostomy was placed, with near full resolution of the PTX. We also dropped his insp pressure to 14. Duplex scan on 10/08 showed a small calf vein DVT in a branch of the right perone al vein. We kept him on Heparin 5000 u tid and added ASA. Repeat US done 10/10 was unchanged from 10/08 (ie. no progression). ECHOCARDIOGRAM done 10/10 at the bedside by the tech, interpreted by me: Unable to obtain any parasternal or apical images. Good images from the subcostal plane. Normal LV wall thickness with normal LV function, ejection fraction at least 60%. No regional wall motion abnormalities noted. RV size is normal. RV function could not be evaluated. 1+ TR by color-flow Doppler; off axis CWD measured 2.5 m/sec. IVC measured 1.5 cm with good insp collapse. F/U CXR 10/11 showed a small PTX on the lower lateral aspect of the left lung, probably less than 10%. Still had pneumomediastinum and subcutaneous emphysema. No chest tube was placed. Two f/u CXRs showed resolution of that PTX. Bec of worsening renal indices and hyperkalemia, we placed a RIJ temporary hemodialysis catheter and started hemodialysis yesterday morning. Flow through the dialysis catheter was poor. At about 1-1/2 hours into dialysis, the patient went in to atrial fibrillation at a rapid rate, and dropped his blood pressure into the 60s. I gave him a bolus of amiodarone in preparation for cardioversion, and he cardioverted spontaneously into sinus rhythm at a rate of 133, which then came down into the 120s. His blood pressure stabilized immediately. However we terminated dialysis with a plan to replace the dialysis catheter and dialyze him again today. The RIJV dialysis catheter was removed and replaced into the right groin. This morning about 05:00, the patient went into atrial fibrillation again, with hemodynamic deterioration. He failed cardioversion attempts x4, even after loading with amiodarone. Stabilized on a diltiazem drip. Currently sedated on propofol @ 40ug, and fentanyl 150ug. Also on Levophed @ 0.3ug, diltiazem 10 mg/hour, insulin 5u/hr, and bicarb at 75cc/hr. Heart rate is 116, Afib. Blood pressure is 122/51. On PC rate 26, 16/10, 100%/+10, rate i s 29, Vt avg about 500cc, Ve 14L, PIP 27cm, ETCO2 39, Sat 93%. Central venous blood gas this morning showed 7.16/66/-5. Tmax 100.4. No JVD at 30 degrees. SQ emphysema maybe sl. less than yesterday, patience on the right. Abdomen is soft, benign. Residuals nothing. There is now mild peripheral edema. Neuro exam is nonfocal/noninteractive. LABORATORY DATA: As below. Notably, white count is down to 30, plat count down to 80. BUN/creatinine are up to 108/6.4, with phos up to 11.3. Potassium was 5.6 on the bicarb and insulin drips. Bicarb 24. T bili is up to 2.5, albumin is 2.0. MICROBIOLOGY: Blood cultures from October 09, negative. U/A October 10 negative. Sputum October 11 1+ polys, 4+ Gram-positive cocci, 4+ yeast. Culture growing 4+ staph aureus, sensitivity pending Chest x-ray this morning is read as showing a small apical pneumothorax on the left, unchanged from yest, which I am unable to find. Still has pneumomediastinum and subcutaneous emphysema. IMPRESSION: 1. Bilateral COVID pneumonia with ARDS. Now on Solu-Medrol 80 mg bid. Had a 5 day course of ivermectin and a 5-day course of remdesivir. Also on vitamin-B, vit C, Vit D, thiamine, melatonin, and ASA. 2 Acute hypoxemic respiratory failure. Required intubation. Developed barotrauma immediately with PPV, even at low airway pressures. Poor prognostic sign. Following a small apical pneumothorax on the left. Repeat chest x-ray tomorrow morning. 3. Acute kidney injury. Full dialysis today. Discussed at length with Dr. Harris. 4. New Afib. No real surprise. Continue amiodarone and diltiazem. We?ll try cardioversion one more time after HD. 5. Markedly elevated D-dimer. Dramatic decrease with ivermectin and aspirin, FWIW. Has small calf DVT. Cannot rule out pulmonary micro-VTE. Normal tropo jaimee and BNP rule out significant PE, for all intents and purposes. I increased his SQ heparin dose to 7500u tid. Continuing with aspirin. 6. ID: White count coming down after switching doxycycline to Zosyn and vanco. Sputum Gram stain shows only 1+ polys, culture positive for Staph. He is alrea dy on Vanco. 7. Thrombocytopenia: ? Chronic. Getting worse, c/w critical illness. Nothing to do. 8. Metabolic. If he gets a full dialysis today, we?ll d/c the bicarb and loKelma. 9. Hyperglycemia. 2? steroids. On insulin drip. 10. Nutrition: At least mild if not moderate protein calorie malnutrition. Residuals down, restarting tube feeds. Called his son Poli ([phone]) and updated him on today?s events. We further discussed prognosis and continuing critical care management. I jovan mated survivability at up to 20% -- altho in truth that may be high, given his barotrauma. But if any 69 yo can survive COVID with req for mech ventilation and HD, it would be his father. Poli told me that he discussed continuing care with his sister and his mother. They are all convinced that he would want to go through this if he could live. I suggest continuing at least another week and seeing what happens. If further negative events happen, that can be re-evaluated. Poli was in agreement. Critical care time (excluding procedures): 70+ minutes Critical Care Time (minutes): 70 Physical Exam Vital Signs: Vital Signs: Last Vital Signs Temp 99 F 10/13/20 11:00 Pulse 110 H 10/13/20 11:00 Resp 21 H 10/13/20 11:00 BP 114/44 L 10/13/20 11:00 Pulse Ox 89 L 10/13/20 10:00 Body Mass Index 30.8 Objective Data Labs CBC & Chem 7: 10/14/20 08:12 10/14/20 05:06 Labs: Laboratory Results - last 24 hr 10/12/20 10/12/20 10/12/20 05:30 11:57 12:05 WBC RBC Hgb Hct MCV MCH MCHC RDW Plt Count MPV Absolute Nucleated RBC Nucleated RBC % (auto) VBG pH VBG pCO2 VBG pO2 VBG HCO3 VBG O2 Saturation VBG Base Excess Sodium Potassium Chloride Carbon Dioxide Anion Gap BUN Creatinine Estim Creat Clear Calc Estimated GFR POC Glucose 167 H Random Glucose Lactic Acid Calcium Phosphorus Magnesium Total Bilirubin AST ALT Alkaline Phosphatase B-Natriuretic Peptide Total Protein Albumin Procalcitonin 2.78 Random Vancomycin Hep Bs Antigen Negative Hep Bs Antibody NONREACTIVE Hep B Core Total Ab Nonreactive 10/12/20 10/12/20 10/12/20 12:52 14:17 17:05 WBC RBC Hgb Hct MCV MCH MCHC RDW Plt Count MPV Absolute Nucleated RBC Nucleated RBC % (auto) VBG pH VBG pCO2 VBG pO2 VBG HCO3 VBG O2 Saturation VBG Base Excess Sodium Potassium Chloride Carbon Dioxide Anion Gap BUN Creatinine Estim Creat Clear Calc Estimated GFR POC Glucose 157 H 134 H Random Glucose Lactic Acid Calcium Phosphorus Magnesium Total Bilirubin AST ALT Alkaline Phosphatase B-Natriuretic Peptide Total Protein Albumin Procalcitonin Random Vancomycin 12.9 L Hep Bs Antigen Hep Bs Antibody Hep B Core Total Ab 10/12/20 10/12/20 10/12/20 18:12 19:06 20:09 WBC RBC Hgb Hct MCV MCH MCHC RDW Plt Count MPV Absolute Nucleated RBC Nucleated RBC % (auto) VBG pH VBG pCO2 VBG pO2 VBG HCO3 VBG O2 Saturation VBG Base Excess Sodium 138 Potassium 5.8 H Chloride 100 Carbon Dioxide 23 Anion Gap 21 H BUN 98 H* Creatinine 6.06 H* Estim Creat Clear Calc 14.9 Estimated GFR 9 POC Glucose 147 H 148 H Random Glucose 154 H Lactic Acid Calcium 7.0 L Phosphorus Magnesium Total Bilirubin AST ALT Alkaline Phosphatase B-Natriuretic Peptide Total Protein Albumin Procalcitonin Random Vancomycin Hep Bs Antigen Hep Bs Antibody Hep B Core Total Ab 10/12/20 10/13/20 10/13/20 22:52 01:06 03:04 WBC RBC Hgb Hct MCV MCH MCHC RDW Plt Count MPV Absolute Nucleated RBC Nucleated RBC % (auto) VBG pH VBG pCO2 VBG pO2 VBG HCO3 VBG O2 Saturation VBG Base Excess Sodium Potassium Chloride Carbon Dioxide Anion Gap BUN Creatinine Estim Creat Clear Calc Estimated GFR POC Glucose 148 H 138 H 135 H Random Glucose Lactic Acid Calcium Phosphorus Magnesium Total Bilirubin AST ALT Alkaline Phosphatase B-Natriuretic Peptide Total Protein Albumin Procalcitonin Random Vancomycin Hep Bs Antigen Hep Bs Antibody Hep B Core Total Ab 10/13/20 10/13/20 10/13/20 05:20 05:20 05:20 WBC 30.7 H* RBC 3.95 L Hgb 11.5 L Hct 35.0 L MCV 88.6 MCH 29.1 MCHC 32.9 RDW 12.9 Plt Count 80 L MPV 10.1 Absolute Nucleated RBC 0.000 Nucleated RBC % (auto) 0.0 VBG pH VBG pCO2 VBG pO2 VBG HCO3 VBG O2 Saturation VBG Base Excess Sodium 138 Potassium 5.6 H Chloride 98 Carbon Dioxide 24 Anion Gap 22 H BUN 108 H* Creatinine 6.47 H* Estim Creat Clear Calc 14.0 Estimated GFR 9 POC Glucose Random Glucose 132 H Lactic Acid 0.9 Calcium 6.6 L Phosphorus 11.3 H Magnesium 2.7 H Total Bilirubin 2.5 H AST 52 H ALT 50 H Alkaline Phosphatase 99 B-Natriuretic Peptide Total Protein 4.5 L Albumin 2.0 L Procalcitonin Random Vancomycin Hep Bs Antigen Hep Bs Antibody Hep B Core Total Ab 10/13/20 10/13/20 10/13/20 05:20 05:21 05:23 WBC RBC Hgb Hct MCV MCH MCHC RDW Plt Count MPV Absolute Nucleated RBC Nucleated RBC % (auto) VBG pH 7.16 L* VBG pCO2 66 VBG pO2 63 VBG HCO3 23 VBG O2 Saturation 87.0 VBG Base Excess -5.7 Sodium Potassium Chloride Carbon Dioxide Anion Gap BUN Creatinine Estim Creat Clear Calc Estimated GFR POC Glucose 123 H Random Glucose Lactic Acid Calcium Phosphorus Magnesium Total Bilirubin AST ALT Alkaline Phosphatase B-Natriuretic Peptide 181 H Total Protein Albumin Procalcitonin Random Vancomycin Hep Bs Antigen Hep Bs Antibody Hep B Core Total Ab 10/13/20 10/13/20 10/13/20 07:06 09:46 11:01 WBC RBC Hgb Hct MCV MCH MCHC RDW Plt Count MPV Absolute Nucleated RBC Nucleated RBC % (auto) VBG pH VBG pCO2 VBG pO2 VBG HCO3 VBG O2 Saturation VBG Base Excess Sodium Potassium Chloride Carbon Dioxide Anion Gap BUN Creatinine Estim Creat Clear Calc Estimated GFR POC Glucose 184 H 191 H 169 H Random Glucose Lactic Acid Calcium Phosphorus Magnesium Total Bilirubin AST ALT Alkaline Phosphatase B-Natriuretic Peptide Total Protein Albumin Procalcitonin Random Vancomycin Hep Bs Antigen Hep Bs Antibody Hep B Core Total Ab Microbiology Microbiology Results: Microbiology 10/11/20 23:11 Sputum - Suctioned Gram Stain - Final 10/11/20 23:11 Sputum - Suctioned Sputum Culture - Preliminary Staphylococcus aureus 10/09/20 16:35 Blood - Venous Blood Culture - Preliminary No growth after 48 hours. 10/09/20 16:35 Blood - Venous Blood Culture - Preliminary No growth after 48 hours. 10/01/20 09:02 Blood - Venous Blood Culture - Final No growth after 5 days. 10/01/20 09:09 Blood - Venous Blood Culture - Final No growth after 5 days. Quality Stroke Does the patient have a stroke diagnosis?: No VTE Prior VTE?: No VTE Risk Level:: Medical - moderate - high VTE Device Contraindication: Treatment Not Indicated VTE Drug Contraindication: N/A - Med Ordered Critical Care Time Critical Care Time (minutes): 60
--- NOTE | 2020-10-13 11:18 | W.PM.CCHP ---
Procedures Date of Service Date of Service: 10/13/20 Procedure Note Procedure Note: PROCEDURE NOTE: Cardioversion. INDICATIONS: Atrial fibrillation with hemodynamic deterioration. Anesthesia: Propofol and fentanyl infusions. Procedure: The patient went into atrial fibrillation this morning with progressive hemodynamic deterioration. He failed cardioversion at that time and was loaded with amiodarone and diltiazem. Now that he's loaded and on an amiodarone drip, we'll try cardioversion again. The patient was given another 150mg loading dose of amiodarone. The pad positions were checked and adjusted, front and back. He was fully monitored, on the ventilator, and on propofol and fentanyl infusions. He was well sedated and unresponsive. He was given a 200J synch?d countershock, with no effect. The front pad was readjusted and a second 200J synch?d countershock was applied, again without effect. The procedure was therefore abandoned. We will try again after hemodialysis. The patient tolerated the procedure well with no cx.
[2020-10-13] MEDS: Sodium Bicarbonate 8.4% 150 MEQ in Dextrose 5 % 850 ML 75 MEQ IV (11:55)
[2020-10-13 13:07] LABS: Glucose, Whole Blood 115 mg/dL (60-115)
[2020-10-13 15:15] LABS: Glucose, Whole Blood 122 mg/dL (60-115)
[2020-10-13 15:25] LABS: VBG Base Excess 2.4 mmol/L; VBG HCO3 31 mmol/L (22-26); VBG pCO2 66 mmHg; VBG pH 7.27 (7.32-7.43); VBG pO2 110 mmHg
[2020-10-13 15:26] LABS: Venous Blood Gas Refer to POC result
[2020-10-13 15:52] LABS: Anion Gap 18 (12-20); Blood Urea Nitrogen 66 mg/dL (9-16); Calcium 6.6 mg/dL (8.4-10.2); Carbon Dioxide 28 mmol/L (22-29); Chloride 97 mmol/L (96-108); Estimated Glomerular Filt Rate 13; Glucose Random 127 mg/dL (60-115); Potassium 4.5 mmol/L (3.3-5.1); Sodium 138 mmol/L (135-145)
[2020-10-13 15:58] LABS: Vancomycin Random 8.9 mcg/mL (15-20)
--- NOTE | 2020-10-13 16:05 | P.PNNP_ITS ---
Assessment & Plan Assessment and plan (1) SARS-CoV-2 positive: Status: Acute Assessment and Plan: 69-year-old male with a past medical history of chronic back pain, history of COVID-19 positive in May of 2019; presented to the hospital with chief com plaint of generalized weakness. Noted to have COVID-19 positive and hypoxia. 1. Oliguric JANA: c/w SIRS/COVID assoc ATN 2. Resp Failure 3. Hypervol 4. Septic Shock 5. Afib/RVR REC: HD today and most likely again tomorroiw will follow mick with ICU team Time Spent With Patient Time: Total time spent is greater than 50% in coordination of care (as documented) at patient's floor/unit and/or counseling patient: Subjective Subjective Date of Service: 10/13/20 Interval history: Seen and examined. Events noted Currenty on HD Cont on pressors/vent Physical Exam Vital Signs: Vital Signs: Last Vital Signs Temp 99.1 F 10/13/20 16:00 Pulse 120 H 10/13/20 16:00 Resp 25 H 10/13/20 16:00 BP 116/54 L 10/13/20 16:00 Pulse Ox 92 10/13/20 16:00 Body Mass Index 30.8 Const: General: cooperative, comfortable, no acute distress, alert, awake, ill appearing, lethargic and tired appearing Nutritional Appearance: well nourished and overweight Orientation/consciousness: lethargic HENMT: Head: Yes normal to inspection, Yes normocephalic and Yes atraumatic Mouth: Normal oral and palatal mucosa present Eyes: General: appearance normal, both eyes and all related structures Sclerae: sclerae normal Pupils: Equal, round and reactive pupils present EOM: EOMs intact bilaterally Neck: Neck: Yes no lymphadenopathy, Yes trachea midline and Yes supple Chest: Chest palpation & inspection: normal inspection of the chest Resp: Effort & Inspection: normal respiratory effort (On CPAP), able to speak in complete sentences, abnormal respiratory pattern, no respiratory distress and tachypneic Auscultation: clear to auscultation bilaterally and crackles (Diffuse bilateral) Cardio: Jugular venous distension: no JVD Rate: regular rate Rhythm: regular rhythm Heart sounds: no gallops, no murmurs and no rubs GI: Palpation (GI): Soft to palpation, nontender and Other GI palpation findings present ( Nontender) Auscultation: normal bowel sounds Skin: General skin exam: no rashes or lesions noted Neuro: Cranial nerves: Yes CN's II-XII intact bilaterally, Yes Equal, round and reactive pupils present and Yes Bilaterally intact EOM present Extrem: General: Yes normal to inspection, Yes no pedal edema, No clubbing, No cyanosis and Yes pedal edema (Trace bilateral) Objective Data Labs CBC & Chem 7: 10/13/20 05:20 10/13/20 15:06 Labs: Laboratory Results - last 24 hr 10/12/20 10/12/20 10/12/20 05:30 17:05 18:12 WBC RBC Hgb Hct MCV MCH MCHC RDW Plt Count MPV Absolute Nucleated RBC Nucleated RBC % (auto) VBG pH VBG pCO2 VBG pO2 VBG HCO3 VBG O2 Saturation VBG Base Excess Sodium Potassium Chloride Carbon Dioxide Anion Gap BUN Creatinine Estim Creat Clear Calc Estimated GFR POC Glucose 134 H 147 H Random Glucose Lactic Acid Calcium Phosphorus Magnesium Total Bilirubin AST ALT Alkaline Phosphatase B-Natriuretic Peptide Total Protein Albumin Procalcitonin 2.78 Random Vancomycin 10/12/20 10/12/20 10/12/20 19:06 20:09 22:52 WBC RBC Hgb Hct MCV MCH MCHC RDW Plt Count MPV Absolute Nucleated RBC Nucleated RBC % (auto) VBG pH VBG pCO2 VBG pO2 VBG HCO3 VBG O2 Saturation VBG Base Excess Sodium 138 Potassium 5.8 H Chloride 100 Carbon Dioxide 23 Anion Gap 21 H BUN 98 H* Creatinine 6.06 H* Estim Creat Clear Calc 14.9 Estimated GFR 9 POC Glucose 148 H 148 H Random Glucose 154 H Lactic Acid Calcium 7.0 L Phosphorus Magnesium Total Bilirubin AST ALT Alkaline Phosphatase B-Natriuretic Peptide Total Protein Albumin Procalcitonin Random Vancomycin 10/13/20 10/13/20 10/13/20 01:06 03:04 05:20 WBC 30.7 H* RBC 3.95 L Hgb 11.5 L Hct 35.0 L MCV 88.6 MCH 29.1 MCHC 32.9 RDW 12.9 Plt Count 80 L MPV 10.1 Absolute Nucleated RBC 0.000 Nucleated RBC % (auto) 0.0 VBG pH VBG pCO2 VBG pO2 VBG HCO3 VBG O2 Saturation VBG Base Excess Sodium Potassium Chloride Carbon Dioxide Anion Gap BUN Creatinine Estim Creat Clear Calc Estimated GFR POC Glucose 138 H 135 H Random Glucose Lactic Acid Calcium Phosphorus Magnesium Total Bilirubin AST ALT Alkaline Phosphatase B-Natriuretic Peptide Total Protein Albumin Procalcitonin Random Vancomycin 10/13/20 10/13/20 10/13/20 05:20 05:20 05:20 WBC RBC Hgb Hct MCV MCH MCHC RDW Plt Count MPV Absolute Nucleated RBC Nucleated RBC % (auto) VBG pH VBG pCO2 VBG pO2 VBG HCO3 VBG O2 Saturation VBG Base Excess Sodium 138 Potassium 5.6 H Chloride 98 Carbon Dioxide 24 Anion Gap 22 H BUN 108 H* Creatinine 6.47 H* Estim Creat Clear Calc 14.0 Estimated GFR 9 POC Glucose Random Glucose 132 H Lactic Acid 0.9 Calcium 6.6 L Phosphorus 11.3 H Magnesium 2.7 H Total Bilirubin 2.5 H AST 52 H ALT 50 H Alkaline Phosphatase 99 B-Natriuretic Peptide 181 H Total Protein 4.5 L Albumin 2.0 L Procalcitonin Random Vancomycin 10/13/20 10/13/20 10/13/20 05:21 05:23 07:06 WBC RBC Hgb Hct MCV MCH MCHC RDW Plt Count MPV Absolute Nucleated RBC Nucleated RBC % (auto) VBG pH 7.16 L* VBG pCO2 66 VBG pO2 63 VBG HCO3 23 VBG O2 Saturation 87.0 VBG Base Excess -5.7 Sodium Potassium Chloride Carbon Dioxide Anion Gap BUN Creatinine Estim Creat Clear Calc Estimated GFR POC Glucose 123 H 184 H Random Glucose Lactic Acid Calcium Phosphorus Magnesium Total Bilirubin AST ALT Alkaline Phosphatase B-Natriuretic Peptide Total Protein Albumin Procalcitonin Random Vancomycin 10/13/20 10/13/20 10/13/20 09:46 11:01 12:59 WBC RBC Hgb Hct MCV MCH MCHC RDW Plt Count MPV Absolute Nucleated RBC Nucleated RBC % (auto) VBG pH VBG pCO2 VBG pO2 VBG HCO3 VBG O2 Saturation VBG Base Excess Sodium Potassium Chloride Carbon Dioxide Anion Gap BUN Creatinine Estim Creat Clear Calc Estimated GFR POC Glucose 191 H 169 H 115 Random Glucose Lactic Acid Calcium Phosphorus Magnesium Total Bilirubin AST ALT Alkaline Phosphatase B-Natriuretic Peptide Total Protein Albumin Procalcitonin Random Vancomycin 10/13/20 10/13/20 10/13/20 14:59 15:06 15:06 WBC RBC Hgb Hct MCV MCH MCHC RDW Plt Count MPV Absolute Nucleated RBC Nucleated RBC % (auto) VBG pH VBG pCO2 VBG pO2 VBG HCO3 VBG O2 Saturation VBG Base Excess Sodium 138 Potassium 4.5 Chloride 97 Carbon Dioxide 28 Anion Gap 18 BUN 66 H Creatinine 4.58 H* Estim Creat Clear Calc 20.0 Estimated GFR 13 POC Glucose 122 H Random Glucose 127 H Lactic Acid Calcium 6.6 L Phosphorus Magnesium Total Bilirubin AST ALT Alkaline Phosphatase B-Natriuretic Peptide Total Protein Albumin Procalcitonin Random Vancomycin 8.9 L 10/13/20 15:17 WBC RBC Hgb Hct MCV MCH MCHC RDW Plt Count MPV Absolute Nucleated RBC Nucleated RBC % (auto) VBG pH 7.27 L VBG pCO2 66 VBG pO2 110 VBG HCO3 31 H VBG O2 Saturation 97.0 VBG Base Excess 2.4 Sodium Potassium Chloride Carbon Dioxide Anion Gap BUN Creatinine Estim Creat Clear Calc Estimated GFR POC Glucose Random Glucose Lactic Acid Calcium Phosphorus Magnesium Total Bilirubin AST ALT Alkaline Phosphatase B-Natriuretic Peptide Total Protein Albumin Procalcitonin Random Vancomycin Microbiology Microbiology Results: Microbiology 10/11/20 23:11 Sputum - Suctioned Gram Stain - Final 10/11/20 23:11 Sputum - Suctioned Sputum Culture - Preliminary Staphylococcus aureus 10/09/20 16:35 Blood - Venous Blood Culture - Preliminary No growth after 48 hours. 10/09/20 16:35 Blood - Venous Blood Culture - Preliminary No growth after 48 hours. 10/01/20 09:02 Blood - Venous Blood Culture - Final No growth after 5 days. 10/01/20 09:09 Blood - Venous Blood Culture - Final No growth after 5 days. Procedures Date of Service Date of Service: 10/13/20 Progress Note: Quality Stroke Does the patient have a stroke diagnosis?: No
--- NOTE | 2020-10-13 16:17 | HE.PHANOTE ---
Vancomycin Dosing Follow-up Note Random vancomycin level of 8.9 today suggests that a regimen of 1g q48 hours would be a less aggressive option with predicted AUC 490 which is toward the middle of the therapeutic range. Continue to dose by level using random vancomycin levels as a surrogate marker of AUC timed to be drawn 2 hours post-dialysis. This is a duplicate note of an addendum added to the original vancomycin dosing note for ease of following dosing changes.. ~Raquel Rodriguez, PharmD, BCPS, BCCCP x [phone]
[2020-10-13 17:19] LABS: Glucose, Whole Blood 135 mg/dL (60-115)
[2020-10-13] MEDS: Heparin Sodium,Porcine 5,000 UNIT/ML VIAL 7500 UNIT SUBCUT (17:25)
[2020-10-13] MEDS: vancomycin HCL 1,000 MG in 0.9 % Sodium Chloride 250 ML 270 MG IV (17:29)
[2020-10-13 18:50] LABS: Glucose, Whole Blood 135 mg/dL (60-115)
[2020-10-13] MEDS: Melatonin 3 MG TABLET 9 MG G-TUBE (20:47)
[2020-10-13] MEDS: Amiodarone/Dextrose 150 MG/100 ML PLAST..BAG 600 MG IV (21:00)
[2020-10-13 21:38] LABS: Glucose, Whole Blood 143 mg/dL (60-115)
--- NOTE | 2020-10-13 21:51 | PC.NURSE ---
At 2116 patient was cardioverted at 200J, after receiving a 150mg admiodarone bolus. Second shock of 200J was administered at 2117 and patient converted to sinus rhythm. Patient went back into afib at 2131.
[2020-10-13] MEDS: propofoL 1,000 MG/100 ML VIAL 17.62 MG IVCONT (22:42)
[2020-10-13 23:52] LABS: Glucose, Whole Blood 146 mg/dL (60-115)
[2020-10-14] VITALS (35 sets, daily range): BP systolic 111–142; BP diastolic 37–56; PULSE 93–114; RESP 19–30; TEMP 37.2–37.6; O2SAT 88–99; BMI 31.8
[2020-10-14] MEDS: Heparin Sodium,Porcine 5,000 UNIT/ML VIAL 7500 UNIT SUBCUT (01:23)
[2020-10-14] MEDS: Sodium Bicarbonate 8.4% 150 MEQ in Dextrose 5 % 850 ML 75 MEQ IV (01:23)
[2020-10-14] MEDS: Metoclopramide HCl 10 MG/2 ML VIAL 5 MG IVPUSH ×3 (02:00→18:06)
[2020-10-14 02:15] LABS: Glucose, Whole Blood 133 mg/dL (60-115)
[2020-10-14] MEDS: propofoL 1,000 MG/100 ML VIAL 17.62 MG IVCONT ×5 (03:23→23:29)
[2020-10-14 04:19] LABS: Glucose, Whole Blood 123 mg/dL (60-115)
[2020-10-14] MEDS: Piperacillin Sodium/Tazobactam 3.375 GM in 0.9 % Sodium Chloride 50 ML IV ×2 (05:11→10:25)
[2020-10-14] MEDS: Ascorbic Acid 500 MG TABLET 1000 MG G-TUBE ×2 (05:11→11:21)
[2020-10-14] MEDS: dilTIAZem HCL 125 MG in 0.9 % Sodium Chloride 100 ML 10 MG IVCONT (05:11)
[2020-10-14] MEDS: fentaNYL citrate/NS 1,000 MCG/100 ML PLAST..BAG 15 MCG IVCONT ×4 (05:11→23:30)
[2020-10-14 05:17] LABS: VBG Base Excess -2.9 mmol/L; VBG HCO3 25 mmol/L (22-26); VBG pCO2 60 mmHg; VBG pH 7.22 (7.32-7.43); VBG pO2 56 mmHg
[2020-10-14 05:20] LABS: Venous Blood Gas Refer to POC result
[2020-10-14 05:29] LABS: Hematocrit 32.7 % (42-52); Mean Corpuscular HGB Conc 33.6 g/dl (31.0-36.0); Mean Corpuscular Hemoglobin 29.2 pg (27.0-33.0); Mean Corpuscular Volume 86.7 fL (80-98); Mean Platelet Volume 10.3 fL (9.4-12.4); NRBC Pct Auto 0.1 /100WBC (0.0-0.2); Red Blood Count 3.77 X10*6/uL (4.60-5.80); Red Cell Distribution Width 13.2 % (11.0-16.0); White Blood Count 25.4 X10*3/uL (4.8-10.8)
[2020-10-14 05:34] LABS: Platelet Count 70 X10*3/uL (160-400)
[2020-10-14 05:54] LABS: Blood Urea Nitrogen 84 mg/dL (9-16)
[2020-10-14 05:55] LABS: Alanine Aminotransferase 54 U/L (0-40); Albumin Level 1.9 g/dL (3.5-5.0); Alkaline Phosphatase 114 U/L (39-117); Anion Gap 20 (12-20); Aspartate Amino Transferase 46 U/L (5-37); Bilirubin Total 1.8 mg/dL (0.0-1.0); Calcium 6.5 mg/dL (8.4-10.2); Carbon Dioxide 28 mmol/L (22-29); Chloride 93 mmol/L (96-108); Creatinine Clr Calc Pharmacy 16.2; D Dimer 3174 NG/ML; Estimated Glomerular Filt Rate 10; Glucose Random 130 mg/dL (60-115); Magnesium 2.4 mg/dL (1.6-2.6); Phosphorus 10.4 mg/dL (2.7-4.5); Potassium 4.8 mmol/L (3.3-5.1); Sodium 136 mmol/L (135-145); Total Protein 4.4 g/dL (6.5-8.0)
[2020-10-14 06:04] LABS: Glucose, Whole Blood 139 mg/dL (60-115)
[2020-10-14 06:28] LABS: Ferritin 5989 ng/mL (20-250)
[2020-10-14] MEDS: methylPREDNISolone Sod Succ 125 MG/2 ML VIAL 80 MG IVPUSH ×2 (08:23→20:10)
[2020-10-14] MEDS: Chlorhexidine Gluc Oral Rinse 15 ML MOUTHWASH BUCCAL ×3 (08:23→20:10)
[2020-10-14] MEDS: fentaNYL citrate/PF 100 MCG/2 ML VIAL IVPUSH (08:23)
[2020-10-14] MEDS: Thiamine HCL 200 MG/2 ML VIAL IVPUSH ×2 (08:23→20:10)
[2020-10-14] MEDS: Famotidine 20 MG TABLET G-TUBE ×2 (08:24→20:10)
[2020-10-14] MEDS: Cholecalciferol (Vitamin D3) 25 MCG TABLET 50 MCG G-TUBE (08:24)
[2020-10-14] MEDS: Erythromycin Base 250 MG TABLET 500 MG OG-TUBE ×3 (08:24→20:10)
[2020-10-14] MEDS: Aspirin 81 MG TAB.CHEW G-TUBE (08:24)
[2020-10-14] MEDS: Heparin Sodium,Porcine 5,000 UNIT/ML VIAL 3000 UNIT IVPUSH (08:25)
[2020-10-14] MEDS: Heparin Sodium,Porcine/1/2NS 25,000 UNIT/250 ML IV.SOLN 10 UNIT IVCONT (08:25)
[2020-10-14] MEDS: 0.9 % Sodium Chloride Flush 3 ML SYRINGE IVFLUSH (08:25)
[2020-10-14 08:35] LABS: Hematocrit 34.4 % (42-52); Hemoglobin 11.4 g/dl (14.0-18.0); Mean Corpuscular HGB Conc 33.1 g/dl (31.0-36.0); Mean Corpuscular Hemoglobin 28.8 pg (27.0-33.0); Mean Corpuscular Volume 86.9 fL (80-98); Mean Platelet Volume 10.5 fL (9.4-12.4); NRBC Pct Auto 0.1 /100WBC (0.0-0.2); Red Blood Count 3.96 X10*6/uL (4.60-5.80); White Blood Count 28.2 X10*3/uL (4.8-10.8)
[2020-10-14 08:36] LABS: Platelet Count 80 X10*3/uL (160-400)
[2020-10-14] MEDS: Insulin Regular/NS 100 UNIT/100 ML PLAST..BAG IVCONT (09:14)
[2020-10-14 09:20] LABS: Glucose, Whole Blood 127 mg/dL (60-115)
--- NOTE | 2020-10-14 10:15 | PM.PNNEP ---
Assessment & Plan Assessment and plan (1) SARS-CoV-2 positive: Status: Acute Assessment and Plan: 69-year-old male with a past medical history of chronic back pain, history of COVID-19 positive in May of 2019; presented to the hospital with chief complaint of generalized weakness. Noted to have COVID-19 positive and hypoxia. 1. Oligoanuric JANA: c/w SIRS/COVID assoc ATN 2. Resp Failure 3. Hypervol 4. Septic Shock 5. Afib/RVR 6. Hyperphos REC: add cpk to prior labs; start phos binder, HD again tomorrow in am and may need more freq HD depedning on clinical course; will follow mick with ICU team Time Spent With Patient Time: Total time spent is greater than 50% in coordination of care (as documented) at patient's floor/unit and/or counseling patient: Subjective Subjective Date of Service: 10/14/20 Principal diagnosis: JANA Interval history: Seen and examined. Events noted Cont on pressors/vent Last HD 10/13 Min UOP --30 ml past 12 hrs Physical Exam Vital Signs: Vital Signs: Last Vital Signs Temp 99.3 F 10/14/20 06:48 Pulse 106 H 10/14/20 06:48 Resp 26 H 10/14/20 08:23 BP 123/53 L 10/14/20 06:48 Pulse Ox 91 L 10/14/20 06:48 Body Mass Index 31.8 Const: General: cooperative, comfortable, no acute distress, alert, awake, ill appearing, lethargic and tired appearing Nutritional Appearance: well nourished and overweight Orientation/consciousness: lethargic HENMT: Head: Yes normal to inspection, Yes normocephalic and Yes atraumatic Mouth: Normal oral and palatal mucosa present Eyes: General: appearance normal, both eyes and all related structures Sclerae: sclerae normal Pupils: Equal, round and reactive pupils present EOM: EOMs intact bilaterally Neck: Neck: Yes no lymphadenopathy, Yes trachea midline and Yes supple Chest: Chest palpation & inspection: normal inspection of the chest Resp: Effort & Inspection: normal respiratory effort (On CPAP), able to speak in complete sentences, abnormal respiratory pattern, no respiratory distress and tachypneic Auscultation: clear to auscultation bilaterally and crackles (Diffuse bilateral) Cardio: Jugular venous distension: no JVD Rate: regular rate Rhythm: regular rhythm Heart sounds: no gallops, no murmurs and no rubs GI: Palpation (GI): Soft to palpation, nontender and Other GI palpation findings present ( Nontender) Auscultation: normal bowel sounds Skin: General skin exam: no rashes or lesions noted Neuro: Cranial nerves: Yes CN's II-XII intact bilaterally, Yes Equal, round and reactive pupils present and Yes Bilaterally intact EOM present Extrem: General: Yes normal to inspection, Yes no pedal edema, No clubbing, No cyanosis and Yes pedal edema (Trace bilateral) Objective Data Labs CBC & Chem 7: 10/14/20 08:12 10/14/20 05:06 Labs: Laboratory Results - last 24 hr 10/13/20 10/13/20 10/13/20 11:01 12:59 14:59 WBC RBC Hgb Hct MCV MCH MCHC RDW Plt Count MPV Absolute Nucleated RBC Nucleated RBC % (auto) D-Dimer VBG pH VBG pCO2 VBG pO2 VBG HCO3 VBG O2 Saturation VBG Base Excess Sodium Potassium Chloride Carbon Dioxide Anion Gap BUN Creatinine Estim Creat Clear Calc Estimated GFR POC Glucose 169 H 115 122 H Random Glucose Calcium Phosphorus Magnesium Ferritin Total Bilirubin AST ALT Alkaline Phosphatase C-Reactive Protein Total Protein Albumin Random Vancomycin 10/13/20 10/13/20 10/13/20 15:06 15:06 15:17 WBC RBC Hgb Hct MCV MCH MCHC RDW Plt Count MPV Absolute Nucleated RBC Nucleated RBC % (auto) D-Dimer VBG pH 7.27 L VBG pCO2 66 VBG pO2 110 VBG HCO3 31 H VBG O2 Saturation 97.0 VBG Base Excess 2.4 Sodium 138 Potassium 4.5 Chloride 97 Carbon Dioxide 28 Anion Gap 18 BUN 66 H Creatinine 4.58 H* Estim Creat Clear Calc 20.0 Estimated GFR 13 POC Glucose Random Glucose 127 H Calcium 6.6 L Phosphorus Magnesium Ferritin Total Bilirubin AST ALT Alkaline Phosphatase C-Reactive Protein Total Protein Albumin Random Vancomycin 8.9 L 10/13/20 10/13/20 10/13/20 17:11 18:46 21:28 WBC RBC Hgb Hct MCV MCH MCHC RDW Plt Count MPV Absolute Nucleated RBC Nucleated RBC % (auto) D-Dimer VBG pH VBG pCO2 VBG pO2 VBG HCO3 VBG O2 Saturation VBG Base Excess Sodium Potassium Chloride Carbon Dioxide Anion Gap BUN Creatinine Estim Creat Clear Calc Estimated GFR POC Glucose 135 H 135 H 143 H Random Glucose Calcium Phosphorus Magnesium Ferritin Total Bilirubin AST ALT Alkaline Phosphatase C-Reactive Protein Total Protein Albumin Random Vancomycin 10/13/20 10/14/20 10/14/20 23:38 02:04 04:07 WBC RBC Hgb Hct MCV MCH MCHC RDW Plt Count MPV Absolute Nucleated RBC Nucleated RBC % (auto) D-Dimer VBG pH VBG pCO2 VBG pO2 VBG HCO3 VBG O2 Saturation VBG Base Excess Sodium Potassium Chloride Carbon Dioxide Anion Gap BUN Creatinine Estim Creat Clear Calc Estimated GFR POC Glucose 146 H 133 H 123 H Random Glucose Calcium Phosphorus Magnesium Ferritin Total Bilirubin AST ALT Alkaline Phosphatase C-Reactive Protein Total Protein Albumin Random Vancomycin 10/14/20 10/14/20 10/14/20 05:06 05:06 05:06 WBC 25.4 H RBC 3.77 L Hgb 11.0 L Hct 32.7 L MCV 86.7 MCH 29.2 MCHC 33.6 RDW 13.2 Plt Count 70 L MPV 10.3 Absolute Nucleated RBC 0.030 H Nucleated RBC % (auto) 0.1 D-Dimer 3174 VBG pH VBG pCO2 VBG pO2 VBG HCO3 VBG O2 Saturation VBG Base Excess Sodium 136 Potassium 4.8 Chloride 93 L Carbon Dioxide 28 Anion Gap 20 BUN 84 H* D Creatinine 5.74 H* Estim Creat Clear Calc 16.2 Estimated GFR 10 POC Glucose Random Glucose 130 H Calcium 6.5 L Phosphorus 10.4 H Magnesium 2.4 Ferritin 5989 H Total Bilirubin 1.8 H AST 46 H ALT 54 H Alkaline Phosphatase 114 C-Reactive Protein 19.00 H Total Protein 4.4 L Albumin 1.9 L Random Vancomycin 10/14/20 10/14/20 10/14/20 05:09 05:52 08:12 WBC 28.2 H RBC 3.96 L Hgb 11.4 L Hct 34.4 L MCV 86.9 MCH 28.8 MCHC 33.1 RDW 13.0 Plt Count 80 L MPV 10.5 Absolute Nucleated RBC 0.030 H Nucleated RBC % (auto) 0.1 D-Dimer VBG pH 7.22 L VBG pCO2 60 VBG pO2 56 VBG HCO3 25 VBG O2 Saturation 81.0 VBG Base Excess -2.9 Sodium Potassium Chloride Carbon Dioxide Anion Gap BUN Creatinine Estim Creat Clear Calc Estimated GFR POC Glucose 139 H Random Glucose Calcium Phosphorus Magnesium Ferritin Total Bilirubin AST ALT Alkaline Phosphatase C-Reactive Protein Total Protein Albumin Random Vancomycin 10/14/20 08:32 WBC RBC Hgb Hct MCV MCH MCHC RDW Plt Count MPV Absolute Nucleated RBC Nucleated RBC % (auto) D-Dimer VBG pH VBG pCO2 VBG pO2 VBG HCO3 VBG O2 Saturation VBG Base Excess Sodium Potassium Chloride Carbon Dioxide Anion Gap BUN Creatinine Estim Creat Clear Calc Estimated GFR POC Glucose 127 H Random Glucose Calcium Phosphorus Magnesium Ferritin Total Bilirubin AST ALT Alkaline Phosphatase C-Reactive Protein Total Protein Albumin Random Vancomycin Microbiology Microbiology Results: Microbiology 10/11/20 23:11 Sputum - Suctioned Gram Stain - Final 10/11/20 23:11 Sputum - Suctioned Sputum Culture - Final Staphylococcus aureus 10/09/20 16:35 Blood - Venous Blood Culture - Preliminary No growth after 48 hours. 10/09/20 16:35 Blood - Venous Blood Culture - Preliminary No growth after 48 hours. 10/01/20 09:02 Blood - Venous Blood Culture - Final No growth after 5 days. 10/01/20 09:09 Blood - Venous Blood Culture - Final No growth after 5 days. Procedures Date of Service Date of Service: 10/14/20 Progress Note: Quality Stroke Does the patient have a stroke diagnosis?: No
[2020-10-14] MEDS: Amiodarone HCL 900 MG in 0.9 % Sodium Chloride 500 ML 34.53 MG IVCONT (10:27)
[2020-10-14 11:10] LABS: Glucose, Whole Blood 148 mg/dL (60-115)
[2020-10-14] MEDS: Sevelamer Carbonate Powder 800 MG POWD.PACK PO ×2 (11:21→16:14)
--- NOTE | 2020-10-14 12:38 | P.PNCC_ITS ---
Subjective Subjective Date of Service: 10/14/20 Interval History: Mr. Cano was transferred to ICU on October 07 with hypoxemic respiratory failure secondary to bilat COVID pneumonia. 69-year-old male with past medical history of chronic back pain. The patient lives in [place]. He was symptomatic with what he thinks was COVID in May of 2019, but he was never tested, nor was he hospitalized. He has not had the COVID vaccine. At the end of August, he drove here to [place] to attend his father?s . Had not been feeling well since then. Very tired. Presented to the [facility] ED on September 28 c/o dyspnea on exertion and dry cough. Denied fevers or diarrhea. In the ED, the Sat was 89% on room air. COVID positive, with cycle threshold 17. DDimer was 2100. CXR had questionable subtle infiltrates. CTPA chest showed mild-moderate COVID infiltrates. By my reading, PA size was borderline enlarged, RV at least top normal, and RA enlarged. The patient was admitted to Medicine and treated with Decadron, plus Zithromax x 3 days. Was also given a 5 day course of remdesivir. Venous duplex on September 29 was negative for DVT. His FiO2 escalated rapidly. On October 03, [place] [address]. He was sent for perfusion scan which showed a segmental defect thought likely related to underlying prominent hilum. He was not able to tolerate high-flow secondary to deviated septum. [place] 10/04[place] [address]. BNP was only 47. PCT was 0.1. On October 07, he required escalation to CPAP, and was therefore transferred to ICU. Initial FiO2 was 60% which then escalated to 80%. His work of breathing increased and CPAP was escalated to BiPAP. The next day he was able to go onto NRBFM plus O2 nasal cannula, but he deteriorated that night and the next morning, and was intubated on October 09. The post intubation CXR suggested pneumomediastinum and poss SQ emphysema. The next morning he had obvious SQ emphysema on exam, and CXR showed a 20-25% right PTX. A right pigtail thoracostomy was placed, with near full resolution of the PTX. We also dropped his insp pressure to 14. Duplex scan on 10/08 showed a small calf vein DVT in a branch of the right peron eal vein. We kept him on Heparin 5000 u tid and added ASA. Repeat US done 10/10 was unchanged from 10/08 (ie. no progression). ECHOCARDIOGRAM done 10/10 at the bedside by the tech, interpreted by me: Unable to obtain any parasternal or apical images. Good images from the subcostal plane. Normal LV wall thickness with normal LV function, ejection fraction at least 60%. No regional wall motion abnormalities noted. RV size is normal. RV function could not be evaluated. 1+ TR by color-flow Doppler; off axis CWD measured 2.5 m/sec. IVC measured 1.5 cm with good insp collapse. F/U CXR 10/11 showed a small PTX on the lower lateral aspect of the left lung, probably less than 10%. Still had pneumomediastinum and subcutaneous emphysema. No chest tube was placed. Two f/u CXRs showed resolution of that PTX. Bec of worsening renal indices and hyperkalemia, a RIJ temporary hemodialysis ca theter was placed and he was started on hemodialysis 10/12. Flow through the dialysis catheter was poor, and at 1-1/2 hours into dialysis, the patient went into atrial fibrillation at a rapid rate, and dropped his blood pressure into the 60s. He was given a bolus of amiodarone in preparation for cardioversion, and with the bolus half way through, he cardioverted spontaneously into sinus rhythm at a rate of 133, which then came down into the 120s. His blood pressure stabilized immediately. However we terminated dialysis with a plan to replace the dialysis catheter and dialyze him again the next day. The RIJV dialysis catheter was removed and replaced into the right groin. This morning about 05:00, the patient went into atrial fibrillation again, with hemodynamic deterioration. He failed cardioversion attempts x4, even after loading with amiodarone. Stabilized on a diltiazem drip. We continued the Amiodarone drip. He underwent a very successful dialysis session yest morning. Gave him another loading dose of Amiodarone after dialysis and tried cardioverting him again, but he didn?t stay in sinus rhythm. This morning he?s gone in and out of Afib. Currently in SR w HR 101, BP 124/45, on the amiodarone gtt, diltiazem @ 5mg/hr, and Levophed 0.3ug. Sedated on propofol @ 40ug, and fentanyl 150ug. Also on insulin 4u/hr, and bicarb at 75cc/hr. On PC rate 26, 16/10, 100%/+10, rate is 29, Vt avg about 500cc, Ve 14L, PIP 27cm, ETCO2 49, Sat 91%. Central venous blood gas this morning showed 7.22/60/-3. Afebrile. No JVD at 30 degrees. SQ emphysema bliat, unchanged. Abdomen is soft, benign. Residuals 150cc. There is now at least 1+ peripheral edema. Neuro exam is nonfocal/noninteractive. LABORATORY DATA: As below. Notably, white count is down to 28, plat count steady at 80. BUN/creatinine are up to 84/5.7 without dialysis this morning, phos up to 10. T bili is down to 1.8, albumin is 2.0. DDimer down to 3174, ferritin steady, CRP down to 19. MICROBIOLOGY: Blood cultures from October 09, negative. U/A October 10 negative. Sputum Gram staine October 11 1+ polys, 4+ Gram-positive cocci, 4+ yeast. Culture growing 4+ MSSA. Chest x-ray this morning is read as showing a possible small apical pneumothorax on the left (unchanged from last two days), which I don?t see. Still has pneumomediastinum and subcutaneous emphysema. IMPRESSION: 1. Bilateral COVID pneumonia with ARDS. Now on Solu-Medrol 80 mg bid. Had a 5 day course of ivermectin and a 5-day course of remdesivir. Also on vitamin-B, Vit D, thiamine, melatonin, and ASA. 2 Acute hypoxemic respiratory failure. Developed barotrauma immediately following intubation, even at low airway pressures. Poor prognostic sign. Following a small apical pneumothorax on the left. We?ve been checking his chest x-ray every morning. 3. Acute kidney injury. Can get by without dialysis today. Discussed with Dr. Harris. 4. New Afib. No real surprise. Continue amiodarone and diltiazem. Started him on heparin gtt. 5. Markedly elevated D-dimer. Dramatic decrease after ivermectin and aspirin, FWIW. Has small calf DVT. The normal troponin and BNP rule out significant PE, for all intents and purposes. Cannot rule out pulmonary micro-VTE. His SQ heparin dose was increased to 7500u tid, and then we changed that to a heparin gtt bec of his paroxysmal Afib. Continuing with aspirin. 6. ID: White count coming down after switching doxycycline to Zosyn and vanco. Sputum Gram stain now growing MSSA, altho only 1+ polys, could be just a colonizer. Will d/c the vanco and zosyn, switch to Nafcillin. 7. Thrombocytopenia: ? Chronic. Worse w critical illness. Nothing to do. 8. Metabolic. d/c bicarb and loKelma now that he?s on HD. 9. Hyperglycemia. 2? steroids. On insulin drip. 10. Nutrition: At least mild if not moderate protein calorie malnutrition. Residuals down, restarting tube feeds. Critical care time: 50 minutes Critical Care Time (minutes): 50 Physical Exam Vital Signs: Vital Signs: Last Vital Signs Temp 99.7 F 10/14/20 12:00 Pulse 95 10/14/20 12:00 Resp 21 H 10/14/20 12:00 BP 123/44 L 10/14/20 12:00 Pulse Ox 89 L 10/14/20 12:00 Body Mass Index 31.8 Objective Data Labs CBC & Chem 7: 10/14/20 08:12 10/14/20 05:06 Labs: Laboratory Results - last 24 hr 10/13/20 10/13/20 10/13/20 12:59 14:59 15:06 WBC RBC Hgb Hct MCV MCH MCHC RDW Plt Count MPV Absolute Nucleated RBC Nucleated RBC % (auto) PT INR PTT (Heparin Protocol) D-Dimer VBG pH VBG pCO2 VBG pO2 VBG HCO3 VBG O2 Saturation VBG Base Excess Sodium Potassium Chloride Carbon Dioxide Anion Gap BUN Creatinine Estim Creat Clear Calc Estimated GFR POC Glucose 115 122 H Random Glucose Calcium Phosphorus Magnesium Ferritin Total Bilirubin AST ALT Alkaline Phosphatase Total Creatine Kinase C-Reactive Protein Total Protein Albumin Random Vancomycin 8.9 L 10/13/20 10/13/20 10/13/20 15:06 15:17 17:11 WBC RBC Hgb Hct MCV MCH MCHC RDW Plt Count MPV Absolute Nucleated RBC Nucleated RBC % (auto) PT INR PTT (Heparin Protocol) D-Dimer VBG pH 7.27 L VBG pCO2 66 VBG pO2 110 VBG HCO3 31 H VBG O2 Saturation 97.0 VBG Base Excess 2.4 Sodium 138 Potassium 4.5 Chloride 97 Carbon Dioxide 28 Anion Gap 18 BUN 66 H Creatinine 4.58 H* Estim Creat Clear Calc 20.0 Estimated GFR 13 POC Glucose 135 H Random Glucose 127 H Calcium 6.6 L Phosphorus Magnesium Ferritin Total Bilirubin AST ALT Alkaline Phosphatase Total Creatine Kinase C-Reactive Protein Total Protein Albumin Random Vancomycin 10/13/20 10/13/20 10/13/20 18:46 21:28 23:38 WBC RBC Hgb Hct MCV MCH MCHC RDW Plt Count MPV Absolute Nucleated RBC Nucleated RBC % (auto) PT INR PTT (Heparin Protocol) D-Dimer VBG pH VBG pCO2 VBG pO2 VBG HCO3 VBG O2 Saturation VBG Base Excess Sodium Potassium Chloride Carbon Dioxide Anion Gap BUN Creatinine Estim Creat Clear Calc Estimated GFR POC Glucose 135 H 143 H 146 H Random Glucose Calcium Phosphorus Magnesium Ferritin Total Bilirubin AST ALT Alkaline Phosphatase Total Creatine Kinase C-Reactive Protein Total Protein Albumin Random Vancomycin 10/14/20 10/14/20 10/14/20 02:04 04:07 05:06 WBC 25.4 H RBC 3.77 L Hgb 11.0 L Hct 32.7 L MCV 86.7 MCH 29.2 MCHC 33.6 RDW 13.2 Plt Count 70 L MPV 10.3 Absolute Nucleated RBC 0.030 H Nucleated RBC % (auto) 0.1 PT INR PTT (Heparin Protocol) D-Dimer VBG pH VBG pCO2 VBG pO2 VBG HCO3 VBG O2 Saturation VBG Base Excess Sodium Potassium Chloride Carbon Dioxide Anion Gap BUN Creatinine Estim Creat Clear Calc Estimated GFR POC Glucose 133 H 123 H Random Glucose Calcium Phosphorus Magnesium Ferritin Total Bilirubin AST ALT Alkaline Phosphatase Total Creatine Kinase C-Reactive Protein Total Protein Albumin Random Vancomycin 10/14/20 10/14/20 10/14/20 05:06 05:06 05:09 WBC RBC Hgb Hct MCV MCH MCHC RDW Plt Count MPV Absolute Nucleated RBC Nucleated RBC % (auto) PT INR PTT (Heparin Protocol) D-Dimer 3174 VBG pH 7.22 L VBG pCO2 60 VBG pO2 56 VBG HCO3 25 VBG O2 Saturation 81.0 VBG Base Excess -2.9 Sodium 136 Potassium 4.8 Chloride 93 L Carbon Dioxide 28 Anion Gap 20 BUN 84 H* D Creatinine 5.74 H* Estim Creat Clear Calc 16.2 Estimated GFR 10 POC Glucose Random Glucose 130 H Calcium 6.5 L Phosphorus 10.4 H Magnesium 2.4 Ferritin 5989 H Total Bilirubin 1.8 H AST 46 H ALT 54 H Alkaline Phosphatase 114 Total Creatine Kinase 1257 H C-Reactive Protein 19.00 H Total Protein 4.4 L Albumin 1.9 L Random Vancomycin 10/14/20 10/14/20 10/14/20 05:52 08:11 08:12 WBC 28.2 H RBC 3.96 L Hgb 11.4 L Hct 34.4 L MCV 86.9 MCH 28.8 MCHC 33.1 RDW 13.0 Plt Count 80 L MPV 10.5 Absolute Nucleated RBC 0.030 H Nucleated RBC % (auto) 0.1 PT Cancelled INR Cancelled PTT (Heparin Protocol) Cancelled D-Dimer VBG pH VBG pCO2 VBG pO2 VBG HCO3 VBG O2 Saturation VBG Base Excess Sodium Potassium Chloride Carbon Dioxide Anion Gap BUN Creatinine Estim Creat Clear Calc Estimated GFR POC Glucose 139 H Random Glucose Calcium Phosphorus Magnesium Ferritin Total Bilirubin AST ALT Alkaline Phosphatase Total Creatine Kinase C-Reactive Protein Total Protein Albumin Random Vancomycin 10/14/20 10/14/20 08:32 11:02 WBC RBC Hgb Hct MCV MCH MCHC RDW Plt Count MPV Absolute Nucleated RBC Nucleated RBC % (auto) PT INR PTT (Heparin Protocol) D-Dimer VBG pH VBG pCO2 VBG pO2 VBG HCO3 VBG O2 Saturation VBG Base Excess Sodium Potassium Chloride Carbon Dioxide Anion Gap BUN Creatinine Estim Creat Clear Calc Estimated GFR POC Glucose 127 H 148 H Random Glucose Calcium Phosphorus Magnesium Ferritin Total Bilirubin AST ALT Alkaline Phosphatase Total Creatine Kinase C-Reactive Protein Total Protein Albumin Random Vancomycin Microbiology Microbiology Results: Microbiology 10/11/20 23:11 Sputum - Suctioned Gram Stain - Final 10/11/20 23:11 Sputum - Suctioned Sputum Culture - Final Staphylococcus aureus 10/09/20 16:35 Blood - Venous Blood Culture - Preliminary No growth after 48 hours. 10/09/20 16:35 Blood - Venous Blood Culture - Preliminary No growth after 48 hours. 10/01/20 09:02 Blood - Venous Blood Culture - Final No growth after 5 days. 10/01/20 09:09 Blood - Venous Blood Culture - Final No growth after 5 days. Quality Stroke Does the patient have a stroke diagnosis?: No VTE Prior VTE?: No VTE Risk Level:: Medical - moderate - high VTE Device Contraindication: Treatment Not Indicated VTE Drug Contraindication: N/A - Med Ordered Critical Care Time Critical Care Time (minutes): 60
[2020-10-14 13:57] LABS: Glucose, Whole Blood 161 mg/dL (60-115)
[2020-10-14] MEDS: Nafcillin Sodium 2 GM in 0.9 % Sodium Chloride 100 ML IV ×3 (14:12→21:16)
[2020-10-14] MEDS: dilTIAZem HCL 125 MG in 0.9 % Sodium Chloride 100 ML IVCONT ×2 (14:56→23:30)
[2020-10-14 15:05] LABS: PTT Heparin Drip 53.2 SEC (53-77.9)
--- NOTE | 2020-10-14 15:38 | PC.NURSE ---
Addendum entered by Joe Greenberg RN 10/14/20 16:52: Amiodarone bolus was given at 1100*, followed by drip at 1110 at 1mg/hr. Rate changed to 0.5mg/min at 1700, will finish at 1100 10/15. Nepro at 30ml/hr, keep at this rate per MD. 150ml residuals at beginning of shift, only 5ml residuals now. Bowel sounds hypoactive, last BM 10/12. Original Note: Pt intubated sedated on propofol at 30mcg/kg/min, no cough/gag, pupils 3mm PERRLA, extrem flaccid, does not follow commands, did not attmept sed. brittaney. #8 ET tube 27cm lip, ACPC rate 26 (breathing at 29 occasional stack), iPressure 16, FiO2 100%, PEEP 10, Vt ranging 480-700ml Ve averaging 14L/min, ETCO2 45-50, SaO2 88-92%, lungs dim all lobes, chest tube without drainage this shift RUL anterior, -[id number] dry suction to wall-no tidaling present, MD aware, crepitus bilat anterior chest up to neck-improved, minimal secretinos suctioned from both inline secretions and oropharyngeal yankeur. 0855 Amiodarone bolus 150mg given over 10min followed up with drip starting at 1mg/min, change rate to 0.5mg/min at 1700, Cardizem drip titrated down to 5mg/hr 2/2 diastolic BP down into 40s after amiodarone started, MAP improved, levo up to 0.3mcg/kg/min currently at 0.28mcg/kg/min. Pt is going in and out of AFIB and stach/nsr w/ frequent PVC, anasarca present, nonpitting. Heparin drip started at 0900 10ml/hr right after 3,000 unit IVP heparin bolus. Lab deanne PTT first, i started drip, then lab called saying sample was no good. called and says okay to grab 1500 PTT (53.2), next due at 2100. Pt is barley making any urine, aware, Steven DENIS states will do dialysis 10/15, BUN/CREAT trending up 84/5.74, PHOS trending down 10.4, Steven DENIS added Sevelamer. Bicarb drip finished infusing at 1500, VBG recheck at 1999. Pt started on Nafcillin IV. Fentanyl at 150mcg/hr, Insulin at 5units/hr, nepro 30ml/hr
[2020-10-14 17:08] LABS: Glucose, Whole Blood 143 mg/dL (60-115)
[2020-10-14] MEDS: Melatonin 3 MG TABLET 9 MG G-TUBE (20:10)
[2020-10-14 20:47] LABS: VBG Base Excess -5.1 mmol/L; VBG HCO3 22 mmol/L (22-26); VBG pCO2 54 mmHg; VBG pH 7.22 (7.32-7.43); VBG pO2 71 mmHg
[2020-10-14 21:05] LABS: PTT Heparin Drip 58.2 SEC (53-77.9)
[2020-10-14 21:12] LABS: Glucose, Whole Blood 128 mg/dL (60-115)
[2020-10-14 23:53] LABS: Glucose, Whole Blood 123 mg/dL (60-115)
[2020-10-15] VITALS (28 sets, daily range): BP systolic 96–156; BP diastolic 32–59; PULSE 76–105; RESP 14–28; TEMP 37.1–37.4; O2SAT 75–91; BMI 33.5
[2020-10-15 00:03] LABS: Venous Blood Gas Refer to POC result
[2020-10-15] MEDS: Nafcillin Sodium 2 GM in 0.9 % Sodium Chloride 100 ML IV ×6 (01:58→21:59)
[2020-10-15 02:51] LABS: Glucose, Whole Blood 147 mg/dL (60-115)
[2020-10-15] MEDS: Metoclopramide HCl 10 MG/2 ML VIAL 5 MG IVPUSH ×3 (02:57→19:36)
[2020-10-15] MEDS: propofoL 1,000 MG/100 ML VIAL 17.62 MG IVCONT ×4 (03:27→18:25)
[2020-10-15] MEDS: fentaNYL citrate/NS 1,000 MCG/100 ML PLAST..BAG 15 MCG IVCONT (04:02)
[2020-10-15] MEDS: Amiodarone HCL 900 MG in 0.9 % Sodium Chloride 500 ML 17.27 MG IVCONT (04:02)
[2020-10-15 04:39] LABS: Glucose, Whole Blood 125 mg/dL (60-115)
[2020-10-15 05:24] LABS: VBG Base Excess -5.9 mmol/L; VBG HCO3 22 mmol/L (22-26); VBG pCO2 57 mmHg; VBG pH 7.19 (7.32-7.43); VBG pO2 62 mmHg
[2020-10-15 05:25] LABS: Venous Blood Gas Refer to POC result
--- NOTE | 2020-10-15 05:27 | PC.NURSE ---
CARE ASSUMED 23:15..REMAINS TUBED/VENTED..PCV MODE...AC 26/IP 16/FIO2 100%/PEEP 10...Ve 14-15 L/M...SAO2 90-91%...RIGHT ANTERIOR CHEST TUBE W/O DRAINAGE...NO AIR-LEAK...NSR...OCASSIONAL PVC'S....LEVOPHED/AMIODARONE/CARDIZEM DRIPS PER MAY...HEPARIN 8.88 UNITS/KG/HR (10 CC/HR)...INSULIN DRIP 4 UNITS/HR OVERNIGHT PER ICU PA....FARMER TOTAL OUTPUT 15 CC 8 HOURS...FLUID BALANCE (+) 26 LITERS PAST 7 DAYS...AM VBG pH=7.19...PLANNED DIALYSIS THIS AM PER ICU PA..TUBE FEEDS TOLERATED 30 CC/HR AND Q6H 300ml H20 BOLUSES
[2020-10-15 05:36] LABS: Hematocrit 30.1 % (42-52); Hemoglobin 10.4 g/dl (14.0-18.0); Mean Corpuscular HGB Conc 34.6 g/dl (31.0-36.0); Mean Corpuscular Hemoglobin 29.5 pg (27.0-33.0); Mean Corpuscular Volume 85.3 fL (80-98); Mean Platelet Volume 9.9 fL (9.4-12.4); NRBC Pct Auto 0.3 /100WBC (0.0-0.2); Red Blood Count 3.53 X10*6/uL (4.60-5.80); Red Cell Distribution Width 13.2 % (11.0-16.0); White Blood Count 23.6 X10*3/uL (4.8-10.8)
[2020-10-15 05:44] LABS: Platelet Count 76 X10*3/uL (160-400)
[2020-10-15 05:48] LABS: Lactic Acid 0.9 mmol/L (0.5-2.0)
[2020-10-15 06:13] LABS: Alanine Aminotransferase 56 U/L (0-40); Albumin Level 1.8 g/dL (3.5-5.0); Alkaline Phosphatase 137 U/L (39-117); Anion Gap 22 (12-20); Aspartate Amino Transferase 42 U/L (5-37); Bilirubin Total 2.7 mg/dL (0.0-1.0); Blood Urea Nitrogen 115 mg/dL (9-16); Calcium 6.2 mg/dL (8.4-10.2); Carbon Dioxide 26 mmol/L (22-29); Chloride 92 mmol/L (96-108); Creatinine Clr Calc Pharmacy 13.6; Estimated Glomerular Filt Rate 8; Glucose Random 139 mg/dL (60-115); Magnesium 2.6 mg/dL (1.6-2.6); Phosphorus 12.4 mg/dL (2.7-4.5); Potassium 5.1 mmol/L (3.3-5.1); Sodium 135 mmol/L (135-145); Total Protein 4.2 g/dL (6.5-8.0)
[2020-10-15 06:14] LABS: Prothrombin Time 11.4 SEC (9.9-13.0)
[2020-10-15 06:17] LABS: PTT Heparin Drip 51.5 SEC (53-77.9)
[2020-10-15 06:29] LABS: Procalcitonin 3.65 ng/mL
[2020-10-15] MEDS: Heparin Sodium,Porcine 5,000 UNIT/ML VIAL 4500 UNIT IVPUSH (06:49)
[2020-10-15] MEDS: Cholecalciferol (Vitamin D3) 25 MCG TABLET 50 MCG G-TUBE (07:49)
[2020-10-15] MEDS: Chlorhexidine Gluc Oral Rinse 15 ML MOUTHWASH BUCCAL ×2 (07:50→14:10)
[2020-10-15] MEDS: Aspirin 81 MG TAB.CHEW G-TUBE (07:50)
[2020-10-15] MEDS: methylPREDNISolone Sod Succ 125 MG/2 ML VIAL 80 MG IVPUSH ×2 (07:51→21:59)
[2020-10-15] MEDS: Sevelamer Carbonate Powder 800 MG POWD.PACK PO ×3 (07:51→16:43)
[2020-10-15] MEDS: 0.9 % Sodium Chloride Flush 3 ML SYRINGE IVFLUSH ×2 (07:51→14:11)
[2020-10-15] MEDS: Thiamine HCL 200 MG/2 ML VIAL IVPUSH (07:51)
[2020-10-15] MEDS: Insulin Regular/NS 100 UNIT/100 ML PLAST..BAG IVCONT (07:52)
[2020-10-15] MEDS: Heparin Sodium,Porcine/1/2NS 25,000 UNIT/250 ML IV.SOLN 12.25 UNIT IVCONT (07:52)
--- NOTE | 2020-10-15 08:13 | MHC.CM.PN ---
[facility] remains in the icu, [facility] dc plan deferred to future time. cm to cont. to follow.
[2020-10-15 08:57] LABS: Glucose, Whole Blood 149 mg/dL (60-115)
[2020-10-15] MEDS: Famotidine 20 MG TABLET G-TUBE (09:20)
--- NOTE | 2020-10-15 10:19 | MHC.CLN ---
F/U PATIENT CURRENTLY RECEIVING NEPRO TUBE FEEDING AT 30 ML PER HOUR WITH 300ML Q 6HRS FREE WATER FLUSHES PROVIDING 1296KCALS(1761 KCAL WITH SEDATION), 58G PROTEIN, 1723 ML FREE WATER FROM FORMULA AND FLUSHES DISCUSSED WITH MD AT ROUNDS. NURSING REPORTS TOLERATING WELL WITH LOW RESIDUALS. BOWEL REGIME ADDED PER PHARMACY RECOMMEND INCREASING NEPRO TO MAX GOAL RATE 50 ML PER HOUR WITH 300 ML EVERY 6 HOURS FREE WATER FLUSHES TO PROVIDE 2160 KCALS (2625 KCALS WITH SEDATION; 30.5 KCALS/KG), 97 G PROTEIN (1.1 G/KG), 2072 ML TOTAL WATER FROM FORMULA AND FLUSHES (24 ML/KG) START FORMULA AT 30 ML AND INCREASE BY 10 ML Q 4 HRS UNTIL MAX GOAL OF 50 ML IS ACHIEVED. MONITOR TOLERANCE, RESIDUALS AND LYTES
--- NOTE | 2020-10-15 10:20 | PC.NURSE ---
Addendum entered by Joe Greenberg RN 10/15/20 19:30: Pt proned at 1525, vent settings changed to ACVC Vt 600 PEEP 8, FiO2 100%, rate 22, smith 50mg given 1520. tube feeds stopped. desat to 79% led to proning, SaO2 75% now, chest tube put out 270ml serosang after proning, 1845 smith given again for vent synchrony. Original Note: Pt intubated sedated #8 ET tube 28cm at lip, ACPC rate 26, iPressure 16, PEEP 10, FiO2 100%, peak pressure 27, locked I:E 1:2, Vt 460-600ml, Ve 14L/min, breathing 29br/min, ETCO2 45-48, VBG 7.19, SaO2 88-90% -dropped to 85% when supine, lungs dim all lobes subcut. emyphysema present anterior chest 3rd intercostal space to distal neck to shoulders bilat, improved since 10/10. Chest tube no longer draining blood, dry suction -[id number] bellow to delta-no tidaling no MD geovany aware, clamped at 0715 repeat CXR at 1200 to assess need to remove. Hypotensive this AM 112/39, levo titrated up to 0.26mcg/kg/min BP now 128/51 while receiving dialysis (started 0850 today), cardizem drip d/c at 0800, amiodarone infusing at set rate 0.5mg/min, pt NSR stach 90-101 occasional PVC, Peaked Twave K5.1, CVP 9. Anasarca present, 2+ edema pedal, +25L fluid balance last 7 days. DVT right calf CMS WNL. Pt is on heparin drip at 10.88u (rate increased this AM 0650 after 4500U bolus per night RN), recheck at 1300, drip was on for paroxsysmal afib. Pt urine output has been 15-20ml total over 12 hours, BUN/CREAT up to 115/6.97, PHOS up to 12.4. Pt does not have cough/gag pupils PERRLA sluggish 3mm, flaccid, on propofol at 30mcg/kg/min, Fentanyl at 150mcg/hr for vent synchorony, decreasing to 100mcg/hr. Pt is on nepro at 30ml/hr, no residuals goal rate 50ml/hr, hypoactive BS X4Q, last BM 10/12, starting lactulose. On insulin drip at 5u/hr POC glucose 120-140s, checking q4hr. OG tube tube feeds on hold per venetian blind tape cutter during dialysis. Scab noted to upper lip, tube tamer moved away, scab intact. Bed locked and in lowest position, semi fowlers. Will continue to monitor.
[2020-10-15] MEDS: Lactulose 20 GM/30 ML SOLUTION PO ×2 (10:51→14:11)
[2020-10-15] MEDS: fentaNYL citrate/NS 1,000 MCG/100 ML PLAST..BAG 10 MCG IVCONT ×2 (10:51→21:00)
[2020-10-15 11:30] LABS: Glucose, Whole Blood 95 mg/dL (60-115)
--- NOTE | 2020-10-15 11:34 | CONS_ITS ---
DATE OF SERVICE: 10/11/2020 REASON FOR CONSULTATION: Consult requested by Dr. Zhang to evaluate and help in management of patient with severe worsening renal insufficiency and hyperkalemia. HISTORY OF PRESENT ILLNESS: The patient is a 69-year-old male with past medical history of chronic back pain, history of COVID positive status; which was diagnosed in May 2019, who presented to the hospital on 09/28 with generalized weakness. Apparently 10 days ago, he drove from [place] as his father . He apparently did not feel well after that. He had shortness of breath, abdominal pain. The patient was evaluated in the ER, and he was noted to be dehydrated with hypoxia. Oxygen saturation was 89%. He was given nasal O2 and chest CT showed findings suggestive of COVID positive pneumonia. There was no evidence of pulmonary embolism, and he was given Decadron. He was admitted to the hospital for further management. The patient is not able to give any history as he is intubated at the present time and is in the ICU because of worsening respiratory status. His urine output has dropped, and Dr. Zhang, the ICU attending, called me because of worsening renal function and hyperkalemia. I discussed with the nursing staff about overall patient's condition. The patient is on COVID isolation. The patient was examined with full PPE. PAST MEDICAL HISTORY: Includes history of chronic back pain, history of COVID-19 positive status in May. ALLERGIES: TO OPIOIDS. MEDICATIONS: Present medications were reviewed. SOCIAL HISTORY: It is unclear if he smokes or drinks. FAMILY HISTORY: Unknown. PHYSICAL EXAMINATION: VITAL SIGNS: The patient is in the ICU, intubated. Blood pressure 112/54, pulse 100, afebrile, oxygen saturation 80% to 87% on 70% FiO2. HEENT: Shows pupils are equal bilaterally and reactive to light. No jugular venous distention is noted. NECK: Supple. CARDIOVASCULAR SYSTEM: S1, S2 without rub. RESPIRATORY SYSTEM: Air entry decreased in the bases. ABDOMEN: Distended, soft. Bowel sounds are sluggish. EXTREMITIES: Showed no significant edema. NEURO EXAM: Difficult to exam because of the patient's overall condition. LABORATORY DATA: Labs done recently; WBC 47.3, hemoglobin 13.1, hematocrit 42.4, platelets 118. Sodium 137, potassium 6.1, chloride 107, CO2 of 21, BUN 96, creatinine 4.30, estimated GFR 14, glucose 115, calcium 7.4, total bilirubin was 1.6. AST and ALT were slightly elevated. Albumin 2.5. Urinalysis done yesterday showed yellow urine, which was hazy, specific gravity 1.025, pH 5.5, blood 2+, nitrite negative, ketone negative, rbc's 15 to 29, wbc's 1 to 4. Random urine sodium was 29. COVID-19 was positive during this admission. IMPRESSION: 1. A 69-year-old male with severe acute kidney injury. Acute kidney injury in this patient is due to acute tubular injury due to multifactorial reasons. The patient has positive COVID and could have COVID-induced cytokine storm with multiple renal injuries. He could also have microthrombi in the kidney with worsening renal function. At some point, we need to rule out obstruction in this patient, though he has a Ceron catheter and was passing urine. 2. Baseline mild chronic kidney disease with creatinine ranging around 1.0. 3. Hyperkalemia due to acute kidney injury. 4. COVID pneumonia with Cardiorespiratory failure. 5. Severe leukocytosis. RECOMMENDATIONS: At this juncture, cardiorespiratory support as per the ICU team. I agree with IV fluids with sodium bicarbonate, and we can continue that at the same rate. The patient is on Zosyn and vancomycin. I recommend checking Vanco level and adjusting dose based on that. I have taken the liberty to order spot urine for protein-creatinine ratio. I discussed with Dr. Zhang regarding medical management for hyperkalemia. If he continues to be oliguric, having resistance to medical treatment for hyperkalemia, we will plan to initiate renal replacement therapy for this patient. Thank you for allowing me to participate in the medical management of the patient. ADDENDUM: The patient did have CT angiogram of his chest when he presented in a doubt. The patient has contrast-induced nephropathy as his renal function started deteriorating only in the last few days. We should certainly watch for . MD DEEJAY Melton/JOSE / [id number]
[2020-10-15 13:23] LABS: PTT Heparin Drip 76.3 SEC (53-77.9)
[2020-10-15 13:40] LABS: Glucose, Whole Blood 133 mg/dL (60-115)
[2020-10-15 14:33] LABS: VBG Base Excess -6.3 mmol/L; VBG HCO3 22 mmol/L (22-26); VBG pCO2 57 mmHg; VBG pH 7.19 (7.32-7.43); VBG pO2 49 mmHg
[2020-10-15] MEDS: Rocuronium Bromide 50 MG/5 ML VIAL IVPUSH ×2 (15:20→18:45)
[2020-10-15 15:31] LABS: Anion Gap 20 (12-20); Blood Urea Nitrogen 80 mg/dL (9-16); Calcium 6.5 mg/dL (8.4-10.2); Carbon Dioxide 27 mmol/L (22-29); Chloride 95 mmol/L (96-108); Creatinine Clr Calc Pharmacy 17.4; Estimated Glomerular Filt Rate 10; Glucose Random 162 mg/dL (60-115); Sodium 137 mmol/L (135-145)
[2020-10-15 15:37] LABS: Venous Blood Gas Refer to POC result
[2020-10-15 15:42] LABS: Lactic Acid 1.3 mmol/L (0.5-2.0)
[2020-10-15 16:17] LABS: Glucose, Whole Blood 165 mg/dL (60-115)
--- NOTE | 2020-10-15 17:07 | P.PNCC_ITS ---
Subjective Subjective Date of Service: 10/15/20 Interval History: 69-year-old diabetic male presents with acute hypoxemic respiratory failure with ARDS due to bilateral COVID-19 pneumonitis today we evaluated chest tube in the right apex by clamping the tube and repeat chest x- ray showed increased subcutaneous emphysema release of the clamp showed very significant air accumulation which after about 10-15 minutes ceased but he has had a rapidly progressive hypoxemia today on an FiO2 of 100% and we subsequently put him in a prone position but he continued to desaturate down into the high 70s and I fear increasing PEEP with empiric 80 I do not know if he has a pneumothorax that remains on addressed or some mechanical reason including the possibility of pulmonary embolism E given the fact that his D-dimer did peak at over 39,000 he did is a risk of hypercoagulability No one was able to image his heart but I did get at least a subjective sense from the subxiphoid position of a hyperdynamic left ventricle and possible septal paradox with hyperdynamic right ventricle but this was while the chest tube was clamped nonetheless could represent progressive cor pulmonale and in addition he has got the added complication of renal failure and he is post dialysis with persistent pH of 7.18 with a similar pCO2 in the mid 50s and unchanged negative base excess with normal lactate and he has been on an insulin drip so this is still likely to be acidosis related to persistent uremia however given the degree of cor pulmonale and a drop in his mixed venous oxygen saturation it is not impossible that the this could also be reflecting low cardiac output a although the lactate again like it as I said was negative Critical Care Time (minutes): 75 Physical Exam Vital Signs: Vital Signs: Last Vital Signs Temp 99.1 F 10/15/20 15:00 Pulse 102 H 10/15/20 15:59 Resp 22 H 10/15/20 15:59 BP 144/52 H 10/15/20 15:59 Pulse Ox 80 L 10/15/20 15:59 Body Mass Index 33.5 Const: Other: Sedated and intubated with severe diffuse anasarca Elevated CVP of 9-10 was reduced to 6 after 2 L of fluid were removed Abdomen benign but no significant residuals no organomegaly Virtually no air entry sounds bilaterally but no adventitious sounds Objective Data Labs CBC & Chem 7: 10/15/20 05:15 10/15/20 14:21 Labs: Laboratory Results - last 24 hr 10/14/20 10/14/20 10/14/20 17:03 20:30 20:39 WBC RBC Hgb Hct MCV MCH MCHC RDW Plt Count MPV Absolute Nucleated RBC Nucleated RBC % (auto) PT INR PTT (Heparin Protocol) 58.2 VBG pH 7.22 L VBG pCO2 54 VBG pO2 71 VBG HCO3 22 VBG O2 Saturation 87.0 VBG Base Excess -5.1 Sodium Potassium Chloride Carbon Dioxide Anion Gap BUN Creatinine Estim Creat Clear Calc Estimated GFR POC Glucose 143 H Random Glucose Lactic Acid Calcium Phosphorus Magnesium Total Bilirubin AST ALT Alkaline Phosphatase Total Protein Albumin Procalcitonin 10/14/20 10/14/20 10/15/20 20:50 23:40 02:04 WBC RBC Hgb Hct MCV MCH MCHC RDW Plt Count MPV Absolute Nucleated RBC Nucleated RBC % (auto) PT INR PTT (Heparin Protocol) VBG pH VBG pCO2 VBG pO2 VBG HCO3 VBG O2 Saturation VBG Base Excess Sodium Potassium Chloride Carbon Dioxide Anion Gap BUN Creatinine Estim Creat Clear Calc Estimated GFR POC Glucose 128 H 123 H 147 H Random Glucose Lactic Acid Calcium Phosphorus Magnesium Total Bilirubin AST ALT Alkaline Phosphatase Total Protein Albumin Procalcitonin 10/15/20 10/15/20 10/15/20 04:11 05:15 05:15 WBC RBC Hgb Hct MCV MCH MCHC RDW Plt Count MPV Absolute Nucleated RBC Nucleated RBC % (auto) PT 11.4 INR 1.0 PTT (Heparin Protocol) 51.5 L VBG pH VBG pCO2 VBG pO2 VBG HCO3 VBG O2 Saturation VBG Base Excess Sodium 135 Potassium 5.1 Chloride 92 L Carbon Dioxide 26 Anion Gap 22 H BUN 115 H* D Creatinine 6.97 H* Estim Creat Clear Calc 13.6 Estimated GFR 8 POC Glucose 125 H Random Glucose 139 H Lactic Acid Calcium 6.2 L Phosphorus 12.4 H Magnesium 2.6 Total Bilirubin 2.7 H AST 42 H ALT 56 H Alkaline Phosphatase 137 H D Total Protein 4.2 L Albumin 1.8 L Procalcitonin 10/15/20 10/15/20 10/15/20 05:15 05:15 05:15 WBC 23.6 H RBC 3.53 L Hgb 10.4 L Hct 30.1 L MCV 85.3 MCH 29.5 MCHC 34.6 RDW 13.2 Plt Count 76 L MPV 9.9 Absolute Nucleated RBC 0.060 H Nucleated RBC % (auto) 0.3 H PT INR PTT (Heparin Protocol) VBG pH VBG pCO2 VBG pO2 VBG HCO3 VBG O2 Saturation VBG Base Excess Sodium Potassium Chloride Carbon Dioxide Anion Gap BUN Creatinine Estim Creat Clear Calc Estimated GFR POC Glucose Random Glucose Lactic Acid 0.9 Calcium Phosphorus Magnesium Total Bilirubin AST ALT Alkaline Phosphatase Total Protein Albumin Procalcitonin 3.65 10/15/20 10/15/20 10/15/20 05:15 08:04 10:57 WBC RBC Hgb Hct MCV MCH MCHC RDW Plt Count MPV Absolute Nucleated RBC Nucleated RBC % (auto) PT INR PTT (Heparin Protocol) VBG pH 7.19 L* VBG pCO2 57 VBG pO2 62 VBG HCO3 22 VBG O2 Saturation 81.0 VBG Base Excess -5.9 Sodium Potassium Chloride Carbon Dioxide Anion Gap BUN Creatinine Estim Creat Clear Calc Estimated GFR POC Glucose 149 H 95 Random Glucose Lactic Acid Calcium Phosphorus Magnesium Total Bilirubin AST ALT Alkaline Phosphatase Total Protein Albumin Procalcitonin 10/15/20 10/15/20 10/15/20 12:45 12:48 14:21 WBC RBC Hgb Hct MCV MCH MCHC RDW Plt Count MPV Absolute Nucleated RBC Nucleated RBC % (auto) PT INR PTT (Heparin Protocol) 76.3 D VBG pH VBG pCO2 VBG pO2 VBG HCO3 VBG O2 Saturation VBG Base Excess Sodium 137 Potassium 5.0 Chloride 95 L Carbon Dioxide 27 Anion Gap 20 BUN 80 H* D Creatinine 5.47 H* Estim Creat Clear Calc 17.4 Estimated GFR 10 POC Glucose 133 H Random Glucose 162 H Lactic Acid Calcium 6.5 L Phosphorus Magnesium Total Bilirubin AST ALT Alkaline Phosphatase Total Protein Albumin Procalcitonin 10/15/20 10/15/20 10/15/20 14:24 14:46 16:05 WBC RBC Hgb Hct MCV MCH MCHC RDW Plt Count MPV Absolute Nucleated RBC Nucleated RBC % (auto) PT INR PTT (Heparin Protocol) VBG pH 7.19 L* VBG pCO2 57 VBG pO2 49 VBG HCO3 22 VBG O2 Saturation 68.0 VBG Base Excess -6.3 Sodium Potassium Chloride Carbon Dioxide Anion Gap BUN Creatinine Estim Creat Clear Calc Estimated GFR POC Glucose 165 H Random Glucose Lactic Acid 1.3 Calcium Phosphorus Magnesium Total Bilirubin AST ALT Alkaline Phosphatase Total Protein Albumin Procalcitonin Microbiology Microbiology Results: Microbiology 10/09/20 16:35 Blood - Venous Blood Culture - Final No growth after 5 days. 10/09/20 16:35 Blood - Venous Blood Culture - Final No growth after 5 days. 10/11/20 23:11 Sputum - Suctioned Gram Stain - Final 10/11/20 23:11 Sputum - Suctioned Sputum Culture - Final Staphylococcus aureus 10/01/20 09:02 Blood - Venous Blood Culture - Final No growth after 5 days. 10/01/20 09:09 Blood - Venous Blood Culture - Final No growth after 5 days. Quality Stroke Does the patient have a stroke diagnosis?: No VTE Prior VTE?: No VTE Risk Level:: Medical - moderate - high VTE Device Contraindication: Treatment Not Indicated VTE Drug Contraindication: N/A - Med Ordered Progress Note: A&P Assessment and plan (1) Acute respiratory failure with hypoxia: Status: Acute (2) Acute respiratory distress syndrome (ARDS) due to COVID-19 virus: Status: Acute (3) Pneumonia due to COVID-19 virus: Status: Acute (4) Hypoxia: Status: Acute (5) SARS-CoV-2 positive: Status: Acute (6) Tension pneumothorax: Status: Acute (7) Acute cor pulmonale: Status: Acute Assessment and Plan: At this point I know I need to obtain a stat CT a of the chest to rule out manifestation of hypercoagulability or worsening pneumothorax and if neither of those issues exist and this is just simply progressive extent of his COVID-19 disease it would allow us to prognosticate
[2020-10-15] MEDS: iohexoL 350 MG/ML 100 ML INFUS..BTL IV (17:38)
[2020-10-15 19:24] LABS: PTT Heparin Drip 99.5 SEC (53-77.9)
[2020-10-15 20:16] LABS: Glucose, Whole Blood 139 mg/dL (60-115)
[2020-10-15 22:18] LABS: Glucose, Whole Blood 132 mg/dL (60-115)
--- NOTE | 2020-10-15 23:31 | PM.DDS ---
Discharge Sum: Prov Provider Primary care physician: Unknown Physician Patient in DNR code status with sudden asystole resulting in cardiac arrest at approximately 10:58pm, on my exam, no pulse, no spontaneous respiration, no gag or corneal reflex. Official time of 10:58p.m. Healthcare proxy notified. Consults: 09/28/20 17:20 Consult to Crisis Stat Reason for consultation: depression eval 09/28/20 23:55 Consult to Infectious Diseases Routine Consulting Provider: Pati Collins Reason for consultation: COVID positive 10/04/20 09:29 Consult to Pulmonology Routine Consulting Provider: Justin Smith Reason for consultation: covid 19 Has provider been notified: No 10/11/20 13:56 Consult to Nephrology Routine Consulting Provider: Suhail Gaitan Reason for consultation: ARF Has provider been notified: Yes 10/12/20 06:48 Consult to Nephrology Routine Consulting Provider: Luis Casillas Reason for consultation: JANA ? HD Has provider been notified: Yes Discharge Sum: Diag PCOD Cause of : Cardiac arrest Contributing Factors (1) Acute respiratory failure with hypoxia: (2) Acute respiratory distress syndrome (ARDS) due to COVID-19 virus: (3) Pneumonia due to COVID-19 virus: (4) Hypoxia: (5) SARS-CoV-2 positive: (6) Tension pneumothorax: (7) Acute cor pulmonale: Discharge Sum: Summary Date and Time Date of admission: 09/28/20 23:52 Additional Data Attending physician: Orlni Zhang MD
--- NOTE | 2020-10-16 00:47 | PC.NURSE ---
Patient's son and sister were updated at the bedside at 2030. MONTSERRAT Wise spoke with family of possible comfort measures or waiting for natural . Son made the decision of natural . Patient with continued low BP, PA aware. AT 2240 patient began having short pause in cardiac rhythm. Patient asystole at 2248. NEDS contacted and family notified.
== END 2020-10-15 22:48 | disposition expired | DRG 207 ==
LOC: HO.ED 15:53 → HO.IMC 09-29 00:37 → HO.ICU 10-07 08:59
PROVIDERS: Family Medicine; Hospitalist; Internal Medicine; Internal Medicine Cardiovascular Disease; Internal Medicine Nephrology; Internal Medicine Pulmonary Disease; Nurse Practitioner Acute Care; Physician Assistant Medical; Admitting Provider Hospitalist; Emergency Provider Emergency Medicine; Visit Provider Anesthesiology
DX: U07.1 COVID-19 (principal); A41.89 Other specified sepsis; J12.82 Pneumonia due to coronavirus disease 2019; N17.0 Acute kidney failure with tubular necrosis; R65.21 Severe sepsis with septic shock; J93.0 Spontaneous tension pneumothorax; I26.09 Other pulmonary embolism with acute cor pulmonale; J96.01 Acute respiratory failure with hypoxia; E44.0 Moderate protein-calorie malnutrition; I47.1 Supraventricular tachycardia; N18.2 Chronic kidney disease, stage 2 (mild); Z68.33 Body mass index [BMI] 33.0-33.9, adult; I48.91 Unspecified atrial fibrillation; R73.9 Hyperglycemia, unspecified; G89.29 Other chronic pain; D69.6 Thrombocytopenia, unspecified; Z88.5 Allergy status to narcotic agent; E87.5 Hyperkalemia; Z66 Do not resuscitate
CPT/HCPCS: 0241U; 36415; 36600; 71045; 71275; 72170; 78580; 80048; 80053; 80076; 80202; 80307; 81001; 81003; 82550; 82728; 82803; 82947; 83605; 83615; 83690; 83735; 83880; 84100; 84145; 84300; 84478; 84484; 85025; 85027; 85379; 85610; 85730; 86140; 86141; 86704; 86706; 87040; 87070; 87077; 87186; 87205; 87340; 87449; 87633; 87635; 90999; 93005; 93308; 93970; 94002; 94003; 94660; 94799; 97162; 99285; A9540; C1758; J0153; J0171; J0282; J1100; J1650; J2060; J2150; J2250; J2405; J2543; J2765; J2930; J2997; J3010; J3370; J3411; J3490; J8540; Q9967